=== PATIENT | male | born 1945 | race Caucasian/White ===

== ENCOUNTER 2019-12-12 10:52 | Inpatient (IN) | payer MEDICARE, SELFPAY ==
[2019-12-12] VITALS (39 sets, daily range): BP systolic 76–130; BP diastolic 43–76; PULSE 50–76; RESP 7–26; TEMP 36.4–36.7; O2SAT 93–99; BMI 19.1
--- NOTE | 2019-12-12 10:52 | ECG_ITS ---
[facility] Test Date: 2019-12-12 Pat Name: Finn Hannon Department: Room: Gender: Male Eng[employer]ver Machine: : 1945 Requested By: Francisca Fried Order Number: [id number] Celso MD: Vidal Mercedes M.D. Measurements Intervals [place] Rate: 62 P: 27 IL: 149 QRS: 28 QRSD: 99 T: 30 QT: 423 QTc: 430 Interpretive Statements SINUS RHYTHM INTERPRETATION BASED ON A DEFAULT AGE OF 40 YEARS Compared to ECG 02/09/2017 11:22:44 No significant changes Electronically Signed On 12-12-2019 18:08:57 CDT by Vidal Mercedes M.D. [id number] f
--- NOTE | 2019-12-12 10:52 | CTR_ITS ---
PROCEDURE INFORMATION: Exam: CT Head Without Contrast Exam date and time: 12/12/2019 10:53 AM Age: 74 years old Clinical indication: Speech disturbance and weakness, extremity; Left; Patient HX: L sided weakness mild slurred speech lkw 1015; Additional info: Symptoms of acute stroke TECHNIQUE: Imaging protocol: Computed tomography of the head without contrast. Radiation optimization: All CT scans at this facility use at least one of these dose optimization techniques: automated exposure control; mA and/or kV adjustment per patient size (includes targeted exams where dose is matched to clinical indication); or iterative reconstruction. Other technique: STROKE PROTOCOL was implemented. COMPARISON: No relevant prior studies available. RADIATION DOSE METRICS: Total DLP (mGy-cm): 788.66 FINDINGS: Brain: No acute intracranial hemorrhage, cerebral edema, or midline shift. Ventricles: No hydrocephalus. Bones/joints: No acute fracture. Sinuses: No acute sinusitis. Mastoid air cells: Visualized mastoid air cells are well aerated. Orbits: The included orbital structures are unremarkable. Soft tissues: Unremarkable. CT/CT head wo con* [id number] IMPRESSION: 1. No acute intracranial abnormality. 2. [place] Stroke Program Early CT Score (ASPECTS) = 10 Radiation Dose CTDIVOL = (mGy): DLP = 788.66 (mGy-cm)
--- NOTE | 2019-12-12 10:55 | ED_ITS ---
HPI - Neuro Symptoms/Deficit General: Chief Complaint: Neuro Symptoms/Deficit Stated Complaint: Stroke like symtpoms Time Seen by Provider: 12/12/19 10:52 Source: patient and EMS Mode of arrival: EMS Limitations: no limitations History of Present Illness: HPI Narrative: 74-year-old male states that at 1015 he is outside and had generalized weakness. He states that he had a left facial droop and had extreme slurred speech. Patient states he was unable to lift his arms. Patient brought by EMS and they state when I first arrived he did have slurred speech and facial droop which is all since resolved. He states he feels much better. He denies any fever or headache. Denies any vomiting. Denies any worsening improving factors. Associated symptoms: Deny chest pain, nausea or vomiting Review of Systems Const: Denies: fever(s), chills, body aches or change in appetite Eyes: Denies: blurry vision or eye discomfort ENMT: Denies: throat pain or dental pain Card: Denies: chest pain Resp: Denies: dyspnea GI: Denies: abdominal pain, nausea, vomiting or diarrhea : Denies: dysuria Musc: Denies: neck pain or back pain Skin/Breast: Denies: rash Neuro: Reports: weakness in extremities and Slurred speech present Psych: Denies: depression Esdras/Lymph: Denies: easy bruising All/Imm: Denies: urticaria NIH stroke score NIHSS: Level Of Consciousness - 1a: 0 Level Of Consciousness Questions - 1b: Both Correct Level Of Consciousness Commands - 1c: Both Correct Best Gaze - 2: Normal Visual Winkler - 3: No Visual Loss Facial Palsy - 4: Normal Motor Arm Right - 5: No Drift Motor Arm Left - 5: No Drift Motor Leg Right - 6: No Drift Motor Leg Left - 6: No Drift Limb Ataxia - 7: Absent Sensory - 8: Normal Best Language - 9: No Aphasia Dysarthia - 10: Normal Extinction And Inattention - 11: 0 Score: Total Score: 0 Physical Exam Const: COMMON NORMALS: no acute distress, patient oriented x3 and healthy appearing HENMT: COMMON NORMALS: normocephalic and atraumatic HEAD & SCALP: normocephalic and atraumatic Eye: COMMON NORMALS: Equal, round and reactive pupils present and EOMs intact bilaterally PUPIL: Yes Equal, round and reactive pupils present Neck/C-Spine: COMMON NORMALS: full ROM and supple Chest: COMMONS NORMALS: normal inspection of the chest and normal palpation of entire chest wall Resp: COMMON NORMALS: normal respiratory effort, No retractions, No use of accessory muscles and clear to auscultation bilaterally AUSCULTATION: clear to auscultation bilaterally Cardio: COMMON NORMALS: regular rate, regular rhythm and No murmurs present (Cardio) RATE: regular rate RHYTHM: regular rhythm GI: COMMON NORMALS: Normal to inspection, nondistended, normoactive bowel sounds present, Soft to palpation, non-tender and no masses PALPATION: Yes Soft to palpation Extremity: COMMON NORMALS: normal to inspection and full ROM Neuro: COMMON NORMALS: patient oriented x3, moves all extremities and no focal motor deficits Psych: COMMON NORMALS: mental status grossly normal, Normal thought process present and cooperative THOUGHT PROCESS: Normal thought process present Skin: COMMON NORMALS: no rashes or lesions noted and no wounds GENERAL SKIN EXAM: no rashes or lesions noted Course Vital Signs: Vital signs: Vital Signs Pulse Rate 65 12/12/19 11:07 Respiratory Rate 18 12/12/19 11:07 Blood Pressure 77/47 12/12/19 12:00 Pulse Oximetry 97 12/12/19 12:00 MDM - Neuro Symptoms/Deficit MDM Narrative: Medical decision making narrative: 1105 patient with symptoms of completely resolved his NIH here is now is 0. Talk to patient he was out working and felt weak and some like he may have had a near syncopal event. His blood pressure is low here. CT head is normal. I spoke to Dr. Chen on the phone patient does not require TPA as his symptoms have resolved at this time. We will continue lab work and continue to reassess. 1245. Patient continues to be asymptomatic and neuro exam is benign with no neuro deficits. I spoke to Dr. Chen and patient is not a TPA candidate. 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 I believe that he is on to be blood pressure medicines and his blood pressures getting too low and then making him symptomatic. I spoke to hospitalist and will admit. I also spoke to Dr. Schwarz of CT surgery who is consulted. Patient has been stable here and his blood pressure has improved here as well. Lab Data: Labs: Lab Results 12/12/19 12/12/19 12/12/19 Range/Units 10:56 11:00 11:00 WBC 7.8 (4.0-10.0) 10^3/ uL RBC 4.32 (4.1-5.3) 10^6/u L Hgb 11.3 L (11.7-16.6) g/dL Hct 37.2 L (42.0-52.0) % MCV 86.1 (80-94) fL MCH 26.2 L (28.0-34.0) pg MCHC 30.4 (30.0-36.0) g/dL RDW 16.0 H (12.1-15.1) % Plt Count 373 (130-400) 10^3/c mm MPV 10.0 (7.4-10.4) fL Neut % (Auto) 68.1 % Lymph % (Auto) 21.1 % Mcminn % (Auto) 9.2 % Eos % (Auto) 0.9 % Baso % (Auto) 0.3 % Neut # (Auto) 5.34 (1.8-7.7) 10^3/u L Lymph # (Auto) 1.7 (0.8-4.8) 10^3/u L Mcminn # (Auto) 0.7 (0.2-0.9) 10^3/u L Eos # (Auto) 0.1 (0.0-0.8) 10^3/u L Baso # (Auto) 0.0 (0.0-0.1) 10^3/u L Nucleated RBC % (a uto) 0 % Nucleated RBCs # 0.0 /100WBC PT 13.50 (12.1-14.9) SECO NDS INR 1.00 (0.8-1.2) APTT 29.9 (23.9-36.7) SECO NDS Sodium (136-145) mmol/L Potassium (3.5-5.1) mmol/L Chloride (98-107) mmol/L Carbon Dioxide (22-29) mmol/L Anion Gap (5-19) BUN (8-23) mg/dL Creatinine (0.7-1.2) mg/dL GFR Calculation Glucose (65-115) mg/dL POC Glucose (70-110) mg/dL Calculated Osmolal ity (285-295) mOsm/k g Lactic Acid 2.1 (0.5-2.2) mmol/L Calcium (8.5-10.5) mg/dL Total Bilirubin (0.15-1.2) mg/dL AST (0-40) U/L ALT (0-41) U/L Alkaline Phosphata se (40-130) IU/L Total Protein (6.6-8.7) g/dL Albumin (3.5-5.2) g/dL Globulin (1.3-4.6) g/dL Urine Color (Yellow) Urine Appearance (CLEAR) Urine pH (5-7) Ur Specific Gravit y (1.005-1.030) Urine Protein (Negative) Urine Glucose (UA) (Normal) Urine Ketones (Negative) Urine Blood (Negative) Urine Nitrate (Negative) Urine Bilirubin (NEGATIVE) Urine Urobilinogen (Negative) mg/dL Ur Leukocyte Dora ase (Negative) Urine RBC (0-2) /hpf Urine WBC (0-5) /hpf Ur Squamous Epith Cells (0-5) Amorphous Sediment Urine Bacteria (NONE) Hyaline Casts Urine Mucus Urine Yeast Urine Opiates Scre en (Negative) ng/mL Ur Barbiturates Sc reen (Negative) ng/mL Ur Phencyclidine S crn (Negative) ng/mL Ur Amphetamines Sc reen (Negative) ng/mL U Benzodiazepines Scrn (Negative) ng/mL Urine Cocaine Scre en (Negative) ng/mL U Marijuana (THC) Screen (Negative) ng/mL 12/12/19 12/12/19 12/12/19 Range/Units 11:00 11:00 12:15 WBC (4.0-10.0) 10^3/ uL RBC (4.1-5.3) 10^6/u L Hgb (11.7-16.6) g/dL Hct (42.0-52.0) % MCV (80-94) fL MCH (28.0-34.0) pg MCHC (30.0-36.0) g/dL RDW (12.1-15.1) % Plt Count (130-400) 10^3/c mm MPV (7.4-10.4) fL Neut % (Auto) % Lymph % (Auto) % Mcminn % (Auto) % Eos % (Auto) % Baso % (Auto) % Neut # (Auto) (1.8-7.7) 10^3/u L Lymph # (Auto) (0.8-4.8) 10^3/u L Mcminn # (Auto) (0.2-0.9) 10^3/u L Eos # (Auto) (0.0-0.8) 10^3/u L Baso # (Auto) (0.0-0.1) 10^3/u L Nucleated RBC % (a uto) % Nucleated RBCs # /100WBC PT (12.1-14.9) SECO NDS INR (0.8-1.2) APTT (23.9-36.7) SECO NDS Sodium 136 (136-145) mmol/L Potassium 3.8 (3.5-5.1) mmol/L Chloride 103 (98-107) mmol/L Carbon Dioxide 22 (22-29) mmol/L Anion Gap 14.8 (5-19) BUN 18 (8-23) mg/dL Creatinine 1.2 (0.7-1.2) mg/dL GFR Calculation Not Reportable Glucose 158 H (65-115) mg/dL POC Glucose 197 (70-110) mg/dL Calculated Osmolal ity 282 L (285-295) mOsm/k g Lactic Acid (0.5-2.2) mmol/L Calcium 9.5 (8.5-10.5) mg/dL Total Bilirubin 0.5 (0.15-1.2) mg/dL AST 13 (0-40) U/L ALT 8 (0-41) U/L Alkaline Phosphata se 46 (40-130) IU/L Total Protein 7.7 (6.6-8.7) g/dL Albumin 3.9 (3.5-5.2) g/dL Globulin 3.8 (1.3-4.6) g/dL Urine Color Yellow (Yellow) Urine Appearance Cloudy (CLEAR) Urine pH 5 (5-7) Ur Specific Gravit y 1.025 (1.005-1.030) Urine Protein 1+ H (Negative) Urine Glucose (UA) Norm (Normal) Urine Ketones 1+ H (Negative) Urine Blood 3+ H (Negative) Urine Nitrate Negative (Negative) Urine Bilirubin 1+ H (NEGATIVE) Urine Urobilinogen Norm (Negative) mg/dL Ur Leukocyte Dora ase 2+ H (Negative) Urine RBC 5-10 H (0-2) /hpf Urine WBC 25-40 H (0-5) /hpf Ur Squamous Epith Cells 0-4 H (0-5) Amorphous Sediment Not Reportable Urine Bacteria 2+ H (NONE) Hyaline Casts 0-4 H Urine Mucus Trace Urine Yeast 1+ H Urine Opiates Scre en (Negative) ng/mL Ur Barbiturates Sc reen (Negative) ng/mL Ur Phencyclidine S crn (Negative) ng/mL Ur Amphetamines Sc reen (Negative) ng/mL U Benzodiazepines Scrn (Negative) ng/mL Urine Cocaine Scre en (Negative) ng/mL U Marijuana (THC) Screen (Negative) ng/mL 12/12/19 Range/Units 12:15 WBC (4.0-10.0) 10^3/ uL RBC (4.1-5.3) 10^6/u L Hgb (11.7-16.6) g/dL Hct (42.0-52.0) % MCV (80-94) fL MCH (28.0-34.0) pg MCHC (30.0-36.0) g/dL RDW (12.1-15.1) % Plt Count (130-400) 10^3/c mm MPV (7.4-10.4) fL Neut % (Auto) % Lymph % (Auto) % Mcminn % (Auto) % Eos % (Auto) % Baso % (Auto) % Neut # (Auto) (1.8-7.7) 10^3/u L Lymph # (Auto) (0.8-4.8) 10^3/u L Mcminn # (Auto) (0.2-0.9) 10^3/u L Eos # (Auto) (0.0-0.8) 10^3/u L Baso # (Auto) (0.0-0.1) 10^3/u L Nucleated RBC % (a uto) % Nucleated RBCs # /100WBC PT (12.1-14.9) SECO NDS INR (0.8-1.2) APTT (23.9-36.7) SECO NDS Sodium (136-145) mmol/L Potassium (3.5-5.1) mmol/L Chloride (98-107) mmol/L Carbon Dioxide (22-29) mmol/L Anion Gap (5-19) BUN (8-23) mg/dL Creatinine (0.7-1.2) mg/dL GFR Calculation Glucose (65-115) mg/dL POC Glucose (70-110) mg/dL Calculated Osmolal ity (285-295) mOsm/k g Lactic Acid (0.5-2.2) mmol/L Calcium (8.5-10.5) mg/dL Total Bilirubin (0.15-1.2) mg/dL AST (0-40) U/L ALT (0-41) U/L Alkaline Phosphata se (40-130) IU/L Total Protein (6.6-8.7) g/dL Albumin (3.5-5.2) g/dL Globulin (1.3-4.6) g/dL Urine Color (Yellow) Urine Appearance (CLEAR) Urine pH (5-7) Ur Specific Gravit y (1.005-1.030) Urine Protein (Negative) Urine Glucose (UA) (Normal) Urine Ketones (Negative) Urine Blood (Negative) Urine Nitrate (Negative) Urine Bilirubin (NEGATIVE) Urine Urobilinogen (Negative) mg/dL Ur Leukocyte Dora ase (Negative) Urine RBC (0-2) /hpf Urine WBC (0-5) /hpf Ur Squamous Epith Cells (0-5) Amorphous Sediment Urine Bacteria (NONE) Hyaline Casts Urine Mucus Urine Yeast Urine Opiates Scre en Negative (Negative) ng/mL Ur Barbiturates Sc reen Negative (Negative) ng/mL Ur Phencyclidine S crn Negative (Negative) ng/mL Ur Amphetamines Sc reen Negative (Negative) ng/mL U Benzodiazepines Scrn Negative (Negative) ng/mL Urine Cocaine Scre en Negative (Negative) ng/mL U Marijuana (THC) Screen Negative (Negative) ng/mL Imaging Data^: CT Head: Radiologist's impression: [address] [address] [address] Scan Report Signed Patient: Finn Hannon Unit #: [id number] : 1945 Age/Sex: 74 / M ADM Date: 12/12/19 Loc: ER Room/Bed: Attending Dr: Ordering Provider/Ordering MD: Francisca Fried MD Date of Service: 12/12/19 Procedure(s): CT head wo con* [id number] Accession Number(s): [id number] Report Number: [id number] PROCEDURE INFORMATION: Exam: CT Head Without Contrast Exam date and time: 12/12/2019 10:53 AM Age: 74 years old Clinical indication: Speech disturbance and weakness, extremity; Left; Patient HX: L sided weakness mild slurred speech lkw 1015; Additional info: Symptoms of acute stroke TECHNIQUE: Imaging protocol: Computed tomography of the head without contrast. Radiation optimization: All CT scans at this facility use at least one of these dose optimization techniques: automated exposure control; mA and/or kV adjustment per patient size (includes targeted exams where dose is matched to clinical indication); or iterative reconstruction. Other technique: STROKE PROTOCOL was implemented. COMPARISON: No relevant prior studies available. RADIATION DOSE METRICS: Total DLP (mGy-cm): 788.66 FINDINGS: Brain: No acute intracranial hemorrhage, cerebral edema, or midline shift. Ventricles: No hydrocephalus. Bones/joints: No acute fracture. Sinuses: No acute sinusitis. Mastoid air cells: Visualized mastoid air cells are well aerated. Orbits: The included orbital structures are unremarkable. Soft tissues: Unremarkable. CT/CT head wo con* [id number] IMPRESSION: 1. No acute intracranial abnormality. 2. [place] Stroke Program Early CT Score (ASPECTS) = 10 CXR: Radiologist's impression: [address] [address] XRay Report Signed Patient: Finn Hannon Unit #: [id number] : 1945 Age/Sex: 74 / M ADM Date: 12/12/19 Loc: ER Room/Bed: Attending Dr: Ordering Provider/Ordering MD: Francisca Fried MD Date of Service: 12/12/19 Procedure(s): XR chest 1V portable [id number] Accession Number(s): [id number] Report Number: [id number] PROCEDURE INFORMATION: Exam: XR Chest, 1 View Exam date and time: 12/12/2019 11:42 AM Age: 74 years old Clinical indication: Other: Near syncope TECHNIQUE: Imaging protocol: XR of the chest Views: 1 view. COMPARISON: CR Chest 2 views* [id number] 02/09/2017 11:35 AM FINDINGS: Lungs: Senescent changes are present. No focal consolidation is identified. The lungs are underinflated. Pleural space: Unremarkable. No pleural effusion. No pneumothorax. Heart/Mediastinum: The cardiac silhouette is at the upper limits of normal. Vasculature: Atherosclerotic calcifications are noted within the aortic arch. Bones/joints: Degenerative changes of the shoulders are present. XR/XR chest 1V portable [id number] IMPRESSION: 1. No acute abnormality. 2. Chronic findings as discussed above. cta head: Radiologist's impression: [place] [address] CT Scan Report Signed Patient: Finn Hannon Unit #: [id number] : 1945 Acc t#:[id number] Age/Sex: 74 / M ADM Date: 12/12/19 Loc: ER Room/Bed: Attending Dr: Ordering Provider/Ordering MD: Francisca Fried MD Date of Service: 12/12/19 Procedure(s): CT angio headneck* [id number] Accession Number(s): [id number] Report Number: [id number] WS: [id number] CT ANGIOGRAM CEREBRAL AND CAROTID ARTERIES HISTORY: tia TECHNIQUE: CT angiogram is performed of the carotid and cerebral arteries. During arterial injection imaging is obtained from the skull vertex to the aortic arch in 1.25 mm imaging. Coronal and sagittal reformats are submitted. Additional multi planar reformats of the carotid and cerebral arteries are submitted, MIP imaging also reviewed. NASCET criteria utilized. All CT scans at [facility] use at least one of these dose optimization techniques: automated exposure control; mA and/or kV adjustment per patient size (includes targeted exams where dose is matched to clinical indication); or iterative reconstruction. CONTRAST: Visipaque 320; 95 mL IV. DLP: 2232.33 mGy.cm COMPARISON: None available. Carotid Angiogram: Right carotid: Common carotid artery: Atherosclerosis with no aneurysm or stricture. Internal carotid artery: Moderate calcified plaque and intimal thickening at the bifurcation. Stenosis calculated at 63%. External carotid artery: Patent. Left carotid: Common carotid artery: Tortuous carotid artery with atherosclerosis. There is very mild stenosis at the origin of the common carotid artery from the arch. Internal carotid artery: Calcified plaque at the bifurcation intimal thickening and moderate narrowing. Significant stenosis proximal ICA. Stenosis calculated at 84%. External carotid artery: Patent. Right vertebral artery: Small caliber but patent. Left vertebral artery: Unremarkable. Arises normally from the subclavian artery. Subclavian arteries: Bilateral atherosclerotic plaque. No significant stenoses. Upper thorax: Normal. Thyroid gland: Normal. Osseous structures: Advanced degenerative cervical spondylosis. No fractures or destructive bone lesion. CEREBRAL ANGIOGRAM: Intracranial vertebral arteries: Very small caliber RIGHT vertebral artery but patent. Dominant LEFT vertebral artery. Basilar artery: No significant stenosis or occlusion. No aneurysm. Intracranial Internal carotid arteries: Mild intimal thickening and atheros clerotic plaque. No significant stenosis. No aneurysm. Middle cerebral arteries: Normal. Anterior cerebral arteries and ACOM: Normal. Posterior cerebral arteries and PCOM's: Normal. 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 No thrombus. Mastoid air cells: Normal. Paranasal sinuses: Normal. Calvarium: Normal. CT/CT angio headneck* [id number] IMPRESSION: 1. Proximal LEFT ICA stenosis 84%. 2. Proximal RIGHT ICA stenosis 63%. 3. 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 EKG Data^: EKG 1: Attestation: I personally reviewed and interpreted this EKG as follows: EKG interpretation date: 12/12/19 EKG interpretation time: 11:03 Interpretation: nsr hr [address] or t wave abnormalities qrs 99 qtc 428 Discharge Plan Discharge Patient Disposition: Admitted As Inpatient Clinical Impression: Transient cerebral ischemia, Hypotension Condition: Stable Prescriptions: No Action metoprolol succinate 25 mg tablet extended release 24 hr 25 mg PO DAILY Qty: 90 RF: 3 lisinopril 10 mg tablet 10 mg PO DAILY Qty: 90 RF: 3 isosorbide mononitrate 30 mg Tablet Extended Release 24 Hr 30 mg PO DAILY RF: 0 omeprazole 40 mg Capsule,Delayed Release(Dr/Ec) 40 mg PO DAILY RF: 0 Flomax 0.4 mg Capsule 0.4 mg PO DAILY RF: 0 Crestor 10 mg Tablet 10 mg PO DAILY RF: 0 Referrals: Marques Sterling MD [Primary Care Provider] - Coding Level of Care Code ED Towel Folder for Chg Fwd Exam Comprehensive
[2019-12-12 11:03] LABS: Glucose Point of Care 197 mg/dL (70-110)
--- NOTE | 2019-12-12 11:14 | XRR_ITS ---
PROCEDURE INFORMATION: Exam: XR Chest, 1 View Exam date and time: 12/12/2019 11:42 AM Age: 74 years old Clinical indication: Other: Near syncope TECHNIQUE: Imaging protocol: XR of the chest Views: 1 view. COMPARISON: CR Chest 2 views* [id number] 02/09/2017 11:35 AM FINDINGS: Lungs: Senescent changes are present. No focal consolidation is identified. The lungs are underinflated. Pleural space: Unremarkable. No pleural effusion. No pneumothorax. Heart/Mediastinum: The cardiac silhouette is at the upper limits of normal. Vasculature: Atherosclerotic calcifications are noted within the aortic arch. Bones/joints: Degenerative changes of the shoulders are present. XR/XR chest 1V portable [id number] IMPRESSION: 1. No acute abnormality. 2. Chronic findings as discussed above.
[2019-12-12 11:21] LABS: Basophils % 0.3 %; Eosinophils # 0.1 10^3/uL (0.0-0.8); Eosinophils % 0.9 %; Hematocrit 37.2 % (42.0-52.0); Hemoglobin 11.3 g/dL (11.7-16.6); Lymphocytes # 1.7 10^3/uL (0.8-4.8); Lymphocytes % 21.1 %; Mean Corpuscular HGB Conc 30.4 g/dL (30.0-36.0); Mean Corpuscular Hemoglobin 26.2 pg (28.0-34.0); Mean Corpuscular Volume 86.1 fL (80-94); Monocytes # 0.7 10^3/uL (0.2-0.9); Monocytes % 9.2 %; Neutrophils # 5.34 10^3/uL (1.8-7.7); Neutrophils % 68.1 %; Nucleated Red Blood Cells % 0 %; Platelet Count 373 10^3/cmm (130-400); Red Blood Count 4.32 10^6/uL (4.1-5.3); White Blood Count 7.8 10^3/uL (4.0-10.0)
[2019-12-12] MEDS: aspirin 81 mg Chew Tablet 324 MG PO (11:24)
[2019-12-12] MEDS: sodium chloride 0.9% 1,000 ML 999 ML IV ×2 (11:25→12:24)
--- NOTE | 2019-12-12 11:28 | CT_ITS ---
WS: [id number] CT ANGIOGRAM CEREBRAL AND CAROTID ARTERIES HISTORY: tia TECHNIQUE: CT angiogram is performed of the carotid and cerebral arteries. During arterial injection imaging is obtained from the skull vertex to the aortic arch in 1.25 mm imaging. Coronal and sagittal reformats are submitted. Additional multi planar reformats of the carotid and cerebral arteries are submitted, MIP imaging also reviewed. NASCET criteria utilized. All CT scans at [facility] use at least one of these dose optimization techniques: automated exposure control; mA and/or kV ad justment per patient size (includes targeted exams where dose is matched to clinical indication); or iterative reconstruction. CONTRAST: Visipaque 320; 95 mL IV. DLP: 2232.33 mGy.cm COMPARISON: None available. Carotid Angiogram: Right carotid: Common carotid artery: Atherosclerosis with no aneurysm or stricture. Internal carotid artery: Moderate calcified plaque and intimal thickening at the bifurcation. Stenosi s calculated at 63%. External carotid artery: Patent. Left carotid: Common carotid artery: Tortuous carotid artery with atherosclerosis. There is very mild stenosis at t he origin of the common carotid artery from the arch. Internal carotid artery: Calcified plaque at the bifurcation intimal thickening and moderate narrowin g. Significant stenosis proximal ICA. Stenosis calculated at 84%. External carotid artery: Patent. Right vertebral artery: Small caliber but patent. Left vertebral artery: Unremarkable. Arises normally from the subclavian artery. Subclavian arteries: Bilateral atherosclerotic plaque. No significant stenoses. Upper thorax: Normal. Thyroid gland: Normal. Osseous structures: Advanced degenerative cervical spondylosis. No fractures or destructive bone lesi on. CEREBRAL ANGIOGRAM: Intracranial vertebral arteries: Very small caliber RIGHT vertebral artery but patent. Dominant LEFT vertebral artery. Basilar artery: No significant stenosis or occlusion. No aneurysm. Intracranial Internal carotid arteries: Mild intimal thickening and atherosclerotic plaque. No signif icant stenosis. No aneurysm. Middle cerebral arteries: Normal. Anterior cerebral arteries and ACOM: Normal. Posterior cerebral arteries and PCOM's: Normal. 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 No thrombus. Mastoid air cells: Normal. Paranasal sinuses: Normal. Calvarium: Normal. CT/CT angio headneck* [id number] IMPRESSION: 1. Proximal LEFT ICA stenosis 84%. 2. Proximal RIGHT ICA stenosis 63%. 3. 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
[2019-12-12 11:31] LABS: Partial Thromboplastin Time 29.9 SECONDS (23.9-36.7)
[2019-12-12 11:35] LABS: Alanine Aminotransferase 8 U/L (0-41); Albumin Level 3.9 g/dL (3.5-5.2); Alkaline Phosphatase 46 IU/L (40-130); Anion Gap 14.8 (5-19); Aspartate Amino Transferase 13 U/L (0-40); Blood Urea Nitrogen 18 mg/dL (8-23); Calcium 9.5 mg/dL (8.5-10.5); Carbon Dioxide 22 mmol/L (22-29); Chloride 103 mmol/L (98-107); Globulin 3.8 g/dL (1.3-4.6); Glucose 158 mg/dL (65-115); Osmolality Calculated 282 mOsm/kg (285-295); Potassium 3.8 mmol/L (3.5-5.1); Sodium 136 mmol/L (136-145); Total Bilirubin 0.5 mg/dL (0.15-1.2); Total Protein 7.7 g/dL (6.6-8.7)
[2019-12-12 11:36] LABS: Lactic Sepsis W/Reflex 2.1 mmol/L (0.5-2.2)
[2019-12-12] MEDS: iodixanol 320 mg/mL 100mL Btl IV (11:52)
--- NOTE | 2019-12-12 12:31 | ECG_ITS ---
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 Measurements Intervals [place] Rate: 59 P: 8 KS: 152 QRS: -12 QRSD: 86 T: -10 QT: 438 QTc: 436 Interpretive Statements SINUS BRADYCARDIA Compared to ECG 12/12/2019 11:03:08 Sinus rhythm no longer present Electronically Signed On 12-12-2019 18:07:13 CDT by Vidal Mercedes M.D. [id number] f
[2019-12-12 12:38] LABS: Add Urine Microscopic? YES; Bilirubin Urine 1+ (NEGATIVE); Blood Urine 3+ (Negative); Glucose Urine UA Norm (Normal); Ketones Urine 1+ (Negative); Leukocyte Esterase Urine 2+ (Negative); Nitrate Urine Negative (Negative); Protein Urine 1+ (Negative); Specific Gravity, Urine 1.025 (1.005-1.030); Urine Appearance Cloudy (CLEAR); Urine Color Yellow (Yellow); Urobilinogen Urine Norm (Negative); pH Urine 5 (5-7)
[2019-12-12 12:40] LABS: Squamous Epithelial Cell Urine 0-4 (0-5); WBC Urine 25-40 /hpf (0-5)
[2019-12-12 12:41] LABS: Amphetamines Screen Urine Negative (Negative); Bacteria Urine 2+; Barbiturates Screen Urine Negative (Negative); Benzodiazepines Screen Urine Negative (Negative); Cocaine Screen Urine Negative (Negative); Hyaline Casts Urine 0-4; Mucus Urine TRACE; Opiate Screen Urine Negative (Negative); PCP Screen Urine Negative (Negative); THC Screen Urine Negative (Negative)
[2019-12-12 12:42] LABS: Add Urine Culture? Yes
--- NOTE | 2019-12-12 12:59 | PC.NURSE ---
Patient stated that before his syncopal episodes he has sudden neck pain that almost feels like his throat is closing then blacks out.
[2019-12-12 13:02] LABS: Reflex Lactate Order REFLEX LACTIC ORDERD
[2019-12-12 13:28] LABS: Troponin(5th) Baseline 12 ng/L (0-15)
[2019-12-12 13:36] LABS: Troponin 5 2HR 10.12 ng/L (0-15)
[2019-12-12 13:39] LABS: Troponin 5 2HR Delta -1.88 ABS# (0-10)
--- NOTE | 2019-12-12 13:50 | USCV_ITS ---
Finn Hannon Age: 74 Gender: M : 1945 Exam Date: 12/12/2019 15:29 Ordering Phys: Yan Aldrich MD Technologist: Leigha Talavera [place] [facility] [place]: TIA BP: 102 / 63 HR: 57 Rhythm: Sinus Technical Quality: Technically difficult study MEASUREMENTS (Male / Female) Normal Values 2D ECHO LV Diastolic Diameter PLAX 3.1 cm 4.2 - 5.9 / 3.9 - 5.3 cm LV Systolic Diameter PLAX 2.0 cm LV Chamber Size 3.8 cm IVS Diastolic Thickness 1.3 cm 0.6 - 1.0 / 0.6 - 0.9 cm IVS Systolic Thickness 1.2 cm LVPW Diastolic Thickness 1.6 cm 0.6 - 1.0 / 0.6 - 0.9 cm LVPW Systolic Thickness 1.9 cm RV Chamber Size 4.2 cm LVOT Diameter 2.1 cm LV Ejection Fraction 2D Teich 67.3 % LV Ejection Fraction MOD 2C 55.9 % LV Ejection Fraction 2C AL 57.4 % LA Diameter 4.7 cm LA Width 2.7 cm LA Height 4.0 cm RA Width 2.6 cm RA Height 3.2 cm Aorta at Sinotubular Diameter 2.6 cm M-MODE LV Diastolic Diameter MM 4.9 cm 4.2 - 5.9 / 3.9 - 5.3 cm LV Systolic Diameter MM 3.0 cm LV Ejection Fraction MM Teich 68.9 % IVS Diastolic Thickness MM 1.4 cm 0.6 - 1.0 / 0.6 - 0.9 cm IVS Systolic Thickness MM 1.4 cm LVPW Diastolic Thickness MM 0.9 cm 0.6 - 1.0 / 0.6 - 0.9 cm LVPW Systolic Thickness MM 1.7 cm Aortic Annulus Diameter 2.5 cm LA Ao Ratio MM 1.9 MV E Point Septal Separation 0.7 cm DOPPLER AV Peak Velocity 209.0 cm/s LVOT Peak Velocity 111.0 cm/s AV Area Cont Eq vti 2.3 cm squared AV Area Cont Eq pk 1.8 cm squared MV Area PHT 2.6 cm squared Mitral E to A Ratio 0.6 MV E' Velocity 12.0 cm/s Mitral E to MV E' Ratio 5.5 Mitral E to LV E' Lateral Ratio 5.1 Mitral E to LV E' Septal Ratio 6.0 TR Peak Velocity 181.0 cm/s TR Peak Gradient 13.1 mmHg TV Peak E Velocity 49.0 cm/s Right Atrial Pressure 3.0 mmHg Pulmonary Artery Systolic Pressu 16.1 mmHg PV Peak Velocity 60.0 cm/s RV Acceleration Time 0.1 s RV Ejection Time 0.4 s RV AcT/ET 0.3 FINDINGS Left Ventricle Normal left ventricular cavity size. Normal left ventricular systolic function. Left ventricular ejection fraction is estimated at 60-65 %. No diagnostic regional wall motion abnormalities. Normal diastolic function. Right Ventricle Normal right ventricular size and systolic function. Right Atrium Right atrium not well visualized. Left Atrium Upper normal left atrial size. Mitral Valve Structurally normal mitral valve. No mitral valve stenosis. Aortic Valve Aortic valve not well visualized. No aortic valve stenosis. Tricuspid Valve Tricuspid valve not well visualized. Pulmonic Valve Pulmonic valve not well visualized. Pericardium No pericardial effusion. Aorta Normal sized aortic root. CONCLUSIONS 1. This is a technically difficult study. 2. Normal left ventricular cavity size and systolic function. Left ventricular ejection fraction is estimated at 60-65 %. No diagnostic regional wall motion abnormalities. Normal diastolic function. 3. Normal right ventricular size and systolic function. 4. No significant valvular abnormality. 5. When compared to previous echocardiogram dated 02/07/2017, there may not have been any significant change. Jocelynn Dominguez MD (Electronically Signed) Final Date: 12 December 2019 20:11 S
[2019-12-12 14:31] LABS: NT Pro B Type Natriuretic Pept 232 pg/mL (0-450); Procalcitonin 0.08 ng/mL (0-0.5)
[2019-12-12] MEDS: sodium chloride 0.9% 1,000 ML 75 ML IV (14:31)
--- NOTE | 2019-12-12 14:31 | ECG_ITS ---
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 Measurements Intervals [place] Rate: 60 P: IA: -1 QRS: 0 QRSD: 91 T: -9 QT: 435 QTc: 437 Interpretive Statements SINUS RHYTHM NONSPECIFIC T-WAVE ABNORMALITY EKG interpretation limited by baseline artifact Compared to ECG 12/12/2019 12:57:23 No significant changes Electronically Signed On 12-12-2019 18:26:51 CDT by Vidal Mercedes M.D. [id number]
[2019-12-12 14:32] LABS: Thyroid Stimulating Hormone 3.61 uIU/mL (0.27-4.20)
[2019-12-12 14:43] LABS: Iron 83 ug/dL (59-158); Total Iron Binding Capacity 267 mcg/dl; Unsaturated Iron Binding 184 ug/dL (112-347)
--- NOTE | 2019-12-12 16:44 | P.CONIM_ITS ---
Providers/Reason For Consult Consulting Physican/Specialty*: Dr. Dominguez, cardiology Reason for Consult*: Multiple episodes of presyncope/syncope with dyspnea on exertion, atypical chest pain, known history of nonobstructive CAD Attending Physician: Yan Aldrich MD Primary Care Provider: Marques Sterling MD History of Present Illness History of Present Illness Finn Hannon is a 74 year old male with past medical history of hypertension, hyperlipidemia, benign prostatic hypertrophy, history of nonobstructive coronary artery disease who presented for evaluation of recurrent episodes of presyncope and one syncopal episode this morning. It seems like for the past few weeks patient has been having episodes of dizziness with exertion (mostly while helping his Shanthi who has Parkinson's disease and dementia). He describes one episode where he fell back on the couch after helping her and really felt tired and dizzy. This morning he started complaining of lightheadedness and near fall while helping his but it subsided and he did not think much of it and made breakfast. Later on in the morning while his son-in-law came by to visit, he started having dizziness, weakness, diaphoresis and double vision. The symptoms continued even after sitting down and he ended up having a syncopal episode. He was brought to the ER by EMS. He was noted to have left-sided facial droop and slurred speech on arrival that has since resolved. He denies having any fever, chills diarrhea or vomiting. He does complain of exertional shortness of breath that has been worsening over last several months. Intermittent episodes of sharp chest discomfort unrelated to exertion were also also described by the patient. He complains of tightness around his neck described as feeling of an ill fitting/new tie. He was out of his medications for about a week and started taking them yesterday evening. He denies having any sick contacts or eating anything unusual. He used to follow-up with Dr. Vizcarra and last saw him in November 2018. He did not undergo coronary angiogram and was noted to have minor irregularities in left main LAD and circumflex and proximal RCA with 40 to 50% and distal RCA with 60 to 70% stenosis. FFR was 0.9. His CXR was normal and two sets of troponins were negative. EKG with sinus bradycardia and non specific T wave inversion. Review of Systems Const: Denies: fever(s), chills, body aches or change in appetite Eyes: Denies: blurry vision or eye discomfort ENMT: Denies: throat pain or dental pain Card: Reports: chest pain, lightheadedness, syncope, pre-syncope and dyspnea on exertion; Denies: palpitations, orthopnea or leg pain with exertion Resp: Reports: dyspnea and non-productive cough; Denies: productive cough, wheezing, pain on inspiration or hemoptysis GI: Denies: abdominal pain, nausea, vomiting or diarrhea : Denies: dysuria Musc: Denies: neck pain, back pain or extremity swelling Skin/Breast: Denies: rash Neuro: Reports: weakness in extremities and Slurred speech present Psych: Denies: depression Endo: Denies: excessive sweating Esdras/Lymph: Denies: easy bruising All/Imm: Denies: urticaria Meds/Allergies Home Medications and Allergies Home Medications Medication Instructions Recorded Confirmed Last Taken Type metoprolol succinate 25 mg 25 mg PO DAILY #90 tab 08/15/19 12/12/19 12/12/19 Rx tablet,extended release 24 hr lisinopril 10 mg tablet 10 mg PO DAILY #90 tab 12/05/19 12/12/19 12/12/19 Rx isosorbide mononitrate 30 mg PO DAILY 12/12/19 12/12/19 12/12/19 History omeprazole 40 mg PO DAILY 12/12/19 12/12/19 12/12/19 History rosuvastatin [Crestor] 10 mg PO DAILY 12/12/19 12/12/19 12/11/19 History tamsulosin [Flomax] 0.4 mg PO DAILY 12/12/19 12/12/19 12/12/19 History Allergies Allergy/AdvReac Type Severity Reaction Status Date / Time No Known Allergies Allergy Unverified 08/15/19 10:20 Current Medications Current Medications Generic Name Dose Route Start Last Admin Trade Name Freq PRN Reason Stop Dose Admin Sodium Chloride 1,000 mls @ 75 mls/hr 12/12/19 14:15 12/12/19 14:31 Sodium Chloride 0.9% IV 75 mls/hr .[id number] DASHA Administration PFSH Acute PFSH: Medical History (Updated 12/12/19 @ 18:29 by Jocelynn Dominguez MD) BPH (benign prostatic hyperplasia) CAD (coronary artery disease) Carotid stenosis, bilateral Dyslipidemia GERD (gastroesophageal reflux disease) Hiatal hernia HTN (hypertension) Surgical History (Updated 12/12/19 @ 17:02 by Jocelynn Dominguez MD) H/O arthroscopy of knee H/O arthroscopy of shoulder History of hip replacement, total Hx of inguinal hernia surgery Vitals/I&O/Wt Last Vital Signs Pulse 59 L 12/12/19 13:12 Resp 18 12/12/19 13:12 BP 110/63 12/12/19 13:12 Pulse Ox 97 12/12/19 13:12 12/12/19 12/12/19 12/12/19 06:59 14:59 22:59 Intake Total / Balance Weight last 48 hrs Weight 129 lb 6.4 oz Physical Exam Narrative: EXAM NARRATIVE: GENERAL: Averagely built and averagely nourished in no acute distress HEENT: Extraocular movement intact. Pupils equal round reactive to light. No pallor or icterus. NECK: central trachea, No JVD, + carotid bruit. CARDIOVASCULAR SYSTEM: S1-S2 regular. No murmur rubs or gallops. RESPIRATORY SYSTEM: Chest clear to auscultation. No wheezes rhonchi or rubs heard. No use of accessory muscles. ABDOMEN: Soft, nontender and nondistended. Normal bowel sounds present. EXTREMITIES: No cyanosis or clubbing. No edema. No signs of chronic venous insufficiency. CAMPUS SECURITY OFFICER: Patient is alert oriented ?3. No focal neurological deficits. SKIN: Normal turgor and temperature. PSYCH: Normal insight and judgment. Data Other Data: Other data: Coronary angiogram 09 February 2017 Angiographic Findings Cardiac Arteries and Lesion Findings LMCA: Medium caliber extremely short vessel. No significant stenotic lesions. LAD: Medium caliber vessel. It appears to wrap around the LV apex. Minimal coronary ectasia was noted proximally. Mild diffuse intimal irregularities were noted in the mid and distal vessel The first diagonal branch is a medium caliber vessel with a mild diffuse disease LCx: Medium caliber vessel. It gives of a high obtuse marginal branch which has mild diffuse disease proximally with no significant stenotic lesions RCA: Medium caliber vessel. There is a tapering narrowing of around 40% proximally. The mid segment of the artery is some mild diffuse ectasia. The distal segment was found to have a moderately severe segmental narrowing. The PDA and the PDA branches was found to have mild diffuse intimal irregularities Lesion on Dist RCA: FFR + + + + !FFR !Stage/Medication !Dosage ! + + + + !0.9 !Adenosine (I.V) !562 ! + + + + LMM STRESS? 01/31/2017 Abnormal EKG response to treadmill exercise suggestive ischemia in the distribution of the right coronary artery/left anterior descending artery 2. No exercise-induced chest pain or cardiac arrhythmia 3. Markedly impaired exercise tolerance, attained a maximum of 4.6 METs Myocardial perfusion imaging revealed a small area of persistent decreased tracer uptake in the mid and apical inferior wall region suggestive of myocardial scarring versus attenuation artifact 2. Left ventricular wall motion analysis revealed no significant wall motion abnormalities 3. Left ventricular ejection fraction was estimated to be within normal limits 61 %. 4. Left ventricular volume was within normal limits. No significant coronary ischemia, based on the above findings CT scan of head: IMPRESSION: 1. No acute intracranial abnormality. CTA head and neck IMPRESSION: 1. Proximal LEFT ICA stenosis 84%. 2. Proximal RIGHT ICA stenosis 63%. 3. 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 EKG showed sinus bradycardia with nonspecific T wave abnormality. Event monitor (11/2017) CLINICAL INDICATION: PALPITATIONS INTERPRETATION: There were 9 strips returned. The baseline strip reveals sinus bradycardia rate of 55 bpm. There were episodes of sinus bradycardia as low as 35 bpm. There was sinus tachycardia at 107 bpm. One strip on the of the month, day 14 of the recording, revealed a 5 beat run of wide complex rhythm at a rate of only 72 bpm. This was automatically detected and was not symptomatic, and was likely ventricular in origin. Patient had 2 episodes of syncope. Both were associated with sinus rhythm.. A&P Assessment and plan (1) Syncope: Status: Acute Qualifiers: Syncope type: unspecified Qualified Code(s): R55 - Syncope and collapse (2) Transient cerebral ischemia: Status: Acute Qualifiers: Transient cerebral ischemia type: unspecified Qualified Code(s): G45.9 - Transient cerebral ischemic attack, unspecified (3) Carotid stenosis, bilateral: Symptomatic left carotid stenosis of 84% and right carotid stenosis of 63%. Status: Acute (4) CAD (coronary artery disease): H/o non obstructive CAD with exertional symptom and dizzy spells. -I will plan for lexiscan MPI on Sunday and based on that decide on coronary angiogram. -This was decided after long discussion with the patient and his daughter (). -The case was also discussed with Dr. Jerez and Dr. Schwarz. -continue ASA, statin and metoprolol. Status: Acute Qualifiers: Coronary Disease-Associated Artery/Lesion type: [place] artery [place] vs. transplanted heart: [place] heart Associated angina: without angina Qualified Code(s): I25.10 - Atherosclerotic heart disease of [place] coronary artery without angina pectoris (5) HTN (hypertension): Status: Acute Qualifiers: Hypertension type: essential hypertension Qualified Code(s): I10 - Essential (primary) hypertension (6) Dyslipidemia: Status: Acute (7) Hypotension: Status: Acute Qualifiers: Hypotension type: unspecified hypotension type Qualified Code(s): I95.9 - Hypotension, unspecified Additional A&P Information History of obstructive sleep apnea History of bradycardia Thank you for allowing me to participate in patient's care. Please feel free to call with questions or concerns. Coding Level of Care Code Acute Director Process Engineering for Elicia Agarwal Diagnoses Syncope R55 Syncope type: unspecified Transient cerebral ischemia G45.9 Transient cerebral ischemia type: unspecified Carotid stenosis, bilateral I65.23 CAD (coronary artery disease) I25.10 Coronary Disease-Associated Artery/Lesion type: [place] artery [place] vs. transplanted heart: [place] heart Associated angina: without angina HTN (hypertension) I10 Hypertension type: essential hypertension Dyslipidemia E78.5 Hypotension I95.9 Hypotension type: unspecified hypotension type
[2019-12-12 16:51] LABS: Glucose Point of Care 90 mg/dL (70-110)
--- NOTE | 2019-12-12 17:22 | PC.NURSE ---
Nutrition Services called re. new diet order for patient. Cardiac diet.
[2019-12-12 17:51] LABS: Troponin 5 6HR 10.13 ng/L (0-15)
[2019-12-12 18:01] LABS: Troponin 5 6HR Delta -1.87 ng/L (0-12)
[2019-12-12] MEDS: enoxaparin 40 mg/0.4 mL Syringe SUBCUT (18:09)
[2019-12-12] MEDS: atorvastatin 40 mg Tablet 80 MG PO (18:09)
--- NOTE | 2019-12-12 18:30 | PM.HP ---
Providers/Chief Complaint Admitting Physician: Ginna Do MD Primary Care Provider: Marques Sterling MD Chief Complaint: Stroke like symtpoms History of Present Illness Finn Hannon is a 74 year old male with past medical history of hypertension, hyperlipidemia, benign prostatic hypertrophy, history of nonobstructive coronary artery disease who presented for evaluation of recurrent episodes of presyncope and one syncopal episode this morning. It seems like for the past few weeks patient has been having episodes of dizziness with exertion (mostly while helping his Shanthi who has Parkinson's disease and dementia). He explains most of the episodes are when he is trying to lift his from bed to chair or from chair to bed at that time he would have episodes of blackout which were preceded by bright flashing of lights, nausea and diaphoresis. These events have been happening for last 3 to 4 weeks. He is also been complaining of exertional diaphoresis, shortness of breath with some occlusion of central chest pain. Today morning when he was having his breakfast with his and son-in-law he stated that he is not feeling well and after finishing the breakfast when he stood he had an acute episode when he was getting up off extreme diaphoresis along with presyncopal event when he kind of leaned onto the floor today also his episodes were associated with lightheadedness. He denies of having any diarrhea, dysuria, cough, fever, flulike symptoms, exposure to COVID-19, depression, headache, dizziness, palpitation, swelling in his legs, orthopnea, PND, palpitations. His blood work in the ER showed a white count of 7.2, hemoglobin of 11.3, platelet count of 373, INR of 1, sodium of 136, BUN of 18 with a creatinine of 1.2, lactate of 2.1 with a normal liver function, baseline troponin of 10 with a delta of -1 in 2 hours urinalysis done in the ER showed negative nitrate with 2+ leuk esterase and 25-40 WBCs though patient himself denies of having any dysuria. CT head was done which showed no acute abnormality while CTA head and neck showed dominant left vertebral artery, proximal left ICA stenosis of 84%, proximal right ICA stenosis of 63%. As per the ER physician patient did have facial drooping when he presented but that resolved in the ER and has not happened again. Review of Systems General: Reports: 10 or more systems reviewed and unremarkable except in HPI and below Const: Denies: fever(s), chills, body aches, change in appetite, change in weight, malaise, night sweats, diaphoresis, change in sleep pattern, daytime sleepiness or snoring Eyes: Denies: change in vision, blurry vision, photophobia, eye discomfort or eye discharge ENMT: Denies: throat pain, enlarged tonsils, hoarseness, mouth pain, oral sores, dry mouth, tinnitus, nasal congestion or post nasal drip Card: Reports: chest pain, syncope and pre-syncope; Denies: palpitations, irregular heart rhythm, edema, swelling of feet/ankles, lightheadedness, dyspnea on exertion, orthopnea, leg pain with exertion or acrocyanosis Resp: Reports: dyspnea; Denies: productive cough, non-productive cough, wheezing, stridor, pain on inspiration, change in phlegm color, hemoptysis or chest congestion GI: Denies: abdominal pain, nausea, vomiting, hematemesis, coffee ground emesis, dysphagia, heartburn, diarrhea, constipation, bloating, GI cramping, change in bowel habits, pain on defecation, hematochezia or melena : Denies: flank pain, difficulty urinating, dysuria, urinary frequency, urinary urgency, urinary hesitancy, urinary dribbling, difficulty starting urination, change in urine stream, nocturia or hematuria Musc: Reports: neck pain; Denies: back pain, extremity pain, joint pain, joint swelling, joint redness, joint stiffness or limited range of motion Neuro: Reports: weakness in extremities, frequent falls and dizziness; Denies: headache(s), numbness in extremities, sensory changes, lack of coordination, difficulty walking, vertigo, confusion, Slurred speech present, difficulty communicating thoughts or seizure-like activity Psych: Denies: anxiety, depression, mood swings, panic attacks, hopelessness or irritability Endo: Denies: polyuria, polydipsia, tired all the time, cold intolerance, excessive sweating, flushing or heat intolerance Esdras/Lymph: Denies: easy bruising or easy bleeding All/Imm: Denies: tongue swelling, facial swelling or acute wheezing Medications/Allergies Home Medications Medication Instructions Recorded Confirmed Last Taken Type metoprolol succinate 25 mg 25 mg PO DAILY #90 tab 08/15/19 12/12/19 12/12/19 Rx tablet,extended release 24 hr lisinopril 10 mg tablet 10 mg PO DAILY #90 tab 12/05/19 12/12/19 12/12/19 Rx isosorbide mononitrate 30 mg PO DAILY 12/12/19 12/12/19 12/12/19 History omeprazole 40 mg PO DAILY 12/12/19 12/12/19 12/12/19 History rosuvastatin [Crestor] 10 mg PO DAILY 12/12/19 12/12/19 12/11/19 History tamsulosin [Flomax] 0.4 mg PO DAILY 12/12/19 12/12/19 12/12/19 History Allergies Allergy/AdvReac Type Severity Reaction Status Date / Time No Known Allergies Allergy Unverified 08/15/19 10:20 PFSH Acute PFSH: Medical History BPH (benign prostatic hyperplasia) CAD (coronary artery disease) Carotid stenosis, bilateral Dyslipidemia GERD (gastroesophageal reflux disease) Hiatal hernia HTN (hypertension) Surgical History H/O arthroscopy of knee H/O arthroscopy of shoulder History of hip replacement, total Hx of inguinal hernia surgery Vitals/I&O/Wt Last Vital Signs Pulse 59 L 12/12/19 13:12 Resp 18 12/12/19 13:12 BP 110/63 12/12/19 13:12 Pulse Ox 97 12/12/19 17:35 12/12/19 12/12/19 12/12/19 06:59 14:59 22:59 Intake Total 35 / 1981.35 Balance 35 1981. Weight last 48 hrs Weight 58.695 kg Physical Exam Narrative: EXAM NARRATIVE: General: No acute distress, AO x3 HEENT: PERRLA, pupils bilaterally equal and reactive Chest: Normal vesicular breath sounds, no added sounds, equal good air entry bilaterally CVS: S1-S2 regular, no murmurs, no tachycardia, no gallops, no rubs Abdomen: Soft, mild tenderness in left paraumblical region on deep palpation, no gaurding, no renal angle tenderness, no rebound, no organomegaly, bowel sounds present Neuro: No focal deficits, no facial deformity, AO x3, power 5/5 in all limbs Data : 12/12/19 11:00 12/12/19 11:00 A&P Assessment and plan (1) Syncope: Status: Acute Qualifiers: Syncope type: unspecified Qualified Code(s): R55 - Syncope and collapse (2) Transient cerebral ischemia: Status: Acute Qualifiers: Transient cerebral ischemia type: unspecified Qualified Code(s): G45.9 - Transient cerebral ischemic attack, unspecified (3) Carotid stenosis, bilateral: Status: Acute (4) Hypotension: Status: Acute Qualifiers: Hypotension type: unspecified hypotension type Qualified Code(s): I95.9 - Hypotension, unspecified (5) CAD (coronary artery disease): Status: Acute Qualifiers: Coronary Disease-Associated Artery/Lesion type: [place] artery [place] vs. transplanted heart: [place] heart Associated angina: without angina Qualified Code(s): I25.10 - Atherosclerotic heart disease of [place] coronary artery without angina pectoris (6) HTN (hypertension): Status: Acute Qualifiers: Hypertension type: essential hypertension Qualified Code(s): I10 - Essential (primary) hypertension (7) Dyslipidemia: Status: Acute Additional A&P Information 74-year-old gentleman past medical history of nonobstructive CAD presented with recurrent episodes of presyncope while he is trying to help his mostly brought upon exertion and lifting heavy weight presented to the ER today. Exertional presyncope: Can have varied etiology of patient's symptoms. Could be secondary to TIA versus unstable angina from nonobstructive CAD versus hypotension because of polypharmacy. Nonobstructive CAD: Follows with Dr. Vizcarra as an outpatient. His last coronary angiogram in 2017 was noted to have minor irregularities in left main LAD and circumflex and proximal RCA with 40 to 50% and distal RCA with 60 to 70% stenosis. FFR was 0.9. Cardiology consulted. Will discuss if patient needs cardiac angiogram versus stress test. Continue to monitor troponins, EKG. Patient is chest pain-free for now. TIA: Significant stenosis in the carotid on the CTA today. CT head negative for any active stroke. Case discussed with Dr. Schwarz. Patient would most likely require carotid endarterectomy versus carotid stenting in this admission but needs cardiology evaluation to rule out obstructive CAD prior to the procedure. Case was discussed with Dr. Chen in the ER and was not with good candidate for TPA. Echocardiogram, lipid panel, HbA1c, admit with telemetry. Given aspirin 325 mg in the ER. Continue with 81 mg daily. Atorvastatin 80 mg daily. Hypertension: Hold off on antihypertensives for now. Given occasional bradycardia will also hold off on metoprolol. We will monitor blood pressures closely. Goal blood pressure around 160 mmHg. For now hold off on antihypertensives and continue to monitor blood pressures. Start patient on normal saline at 75 cc/h. Full code. Cardiac diet. Lovenox for DVT prophylaxis Patient's care were discussed both with patient and his daughter Ms. Tijerina. All the questions were answered. Attestations Medical Necessity Statement*: More than 2 midnights for evaluation of syncope., Evaluation for CAD, significant carotid artery stenosis. Time Spent in Patient Care: Greater than 35 minutes (>than 50% of time spent in counselling and/or direct pt care on unit). Coding Level of Care Code Acute Student Records Specialist for Elicia Agarwal Diagnoses Syncope R55 Syncope type: unspecified Transient cerebral ischemia G45.9 Transient cerebral ischemia type: unspecified Carotid stenosis, bilateral I65.23 Hypotension I95.9 Hypotension type: unspecified hypotension type CAD (coronary artery disease) I25.10 Coronary Disease-Associated Artery/Lesion type: [place] artery [place] vs. transplanted heart: [place] heart Associated angina: without angina HTN (hypertension) I10 Hypertension type: essential hypertension Dyslipidemia E78.5
[2019-12-12] MEDS: acetaminophen 325 mg Tablet 650 MG PO (20:09)
--- NOTE | 2019-12-12 21:48 | PC.NURSE ---
Noted patient to have a heart rate that has dropped to low 50s. Patient denies dizziness or lightheadedness only c/o feeling tired. Informed Dr Wallis. No orders received. Will continue to monitor.
--- NOTE | 2019-12-12 22:17 | ECG_ITS ---
[facility] Test Date: 2019-12-12 Pat Name: Finn Hannon Department: Room: 101 Gender: Male Dance Therapist: valentino GORDONB: 1945 Requested By: Viktor Davalos Order Number: [id number] Celso MD: Jocelynn Dominguez M.D. Measurements Intervals [place] Rate: 53 P: 57 IL: 148 QRS: -1 QRSD: 87 T: 16 QT: 438 QTc: 412 Interpretive Statements SINUS BRADYCARDIA Compared to ECG 12/12/2019 15:34:28 Sinus rhythm no longer present T-wave abnormality no longer present Electronically Signed On 12-13-2019 12:50:45 CDT by Jocelynn Dominguez M.D. [id number]
[2019-12-12] MEDS: HYDROcodone-acetaminophen 5-325 mg Tablet 1 TAB PO (22:47)
[2019-12-13 03:14] VITALS: BP 101/63; PULSE 54; RESP 12; TEMP 36.6; O2SAT 98
[2019-12-13] MEDS: sodium chloride 0.9% 1,000 ML 75 ML IV (03:50)
--- NOTE | 2019-12-13 03:53 | PC.NURSE ---
PT IS UP IN CHAIR. PT C/O 11/13 PAIN IN LEFT SHOULDER. PT DOESN'T WANT ANY PAIN MEDICATION AT THIS TIME. WILL CONTINUE TO MONITOR.
[2019-12-13 05:47] LABS: Basophils % 0.4 %; Eosinophils # 0.2 10^3/uL (0.0-0.8); Eosinophils % 3.2 %; Hematocrit 33.7 % (42.0-52.0); Hemoglobin 10.2 g/dL (11.7-16.6); Lymphocytes # 1.3 10^3/uL (0.8-4.8); Lymphocytes % 27.7 %; Mean Corpuscular HGB Conc 30.3 g/dL (30.0-36.0); Mean Corpuscular Hemoglobin 26.8 pg (28.0-34.0); Mean Corpuscular Volume 88.7 fL (80-94); Monocytes # 0.6 10^3/uL (0.2-0.9); Monocytes % 13.5 %; Neutrophils # 2.58 10^3/uL (1.8-7.7); Neutrophils % 54.6 %; Nucleated Red Blood Cells % 0 %; Platelet Count 290 10^3/cmm (130-400); Red Cell Distribution Width 16.2 % (12.1-15.1); White Blood Count 4.7 10^3/uL (4.0-10.0)
[2019-12-13 06:09] LABS: Chol HDL Ratio 3.47 mg/dL (1.0-5.00); Cholesterol 163 mg/dL (0-200); HDL Cholesterol 47 mg/dL (60-100); LDL Cholesterol Calculated 102 mg/dL (50-129); Triglycerides 69 mg/dL (0-150); VLDL Cholestrol Calculation 14 mg/dL (0-30)
[2019-12-13 06:10] LABS: Estmated Average Glucose 114; Hemoglobin A1C 5.6 % (4.0-6.0)
[2019-12-13 06:38] LABS: Alanine Aminotransferase 7 U/L (0-41); Albumin Level 3.5 g/dL (3.5-5.2); Alkaline Phosphatase 41 IU/L (40-130); Anion Gap 11.9 (5-19); Aspartate Amino Transferase 15 U/L (0-40); Blood Urea Nitrogen 18 mg/dL (8-23); Calcium 9.7 mg/dL (8.5-10.5); Carbon Dioxide 22 mmol/L (22-29); Chloride 108 mmol/L (98-107); Globulin 3.1 g/dL (1.3-4.6); Glucose 94 mg/dL (65-115); Osmolality Calculated 282 mOsm/kg (285-295); Potassium 3.9 mmol/L (3.5-5.1); Sodium 138 mmol/L (136-145); Total Bilirubin 0.3 mg/dL (0.15-1.2); Total Protein 6.6 g/dL (6.6-8.7)
[2019-12-13 07:10] VITALS: BP 134/66; PULSE 54; RESP 18; TEMP 36.7; O2SAT 90
--- NOTE | 2019-12-13 09:16 | P.CONIM_ITS ---
Providers/Reason For Consult Consulting Physican/Specialty*: Cardiothoracic surgery Reason for Consult*: Carotid artery stenosis with history of near syncope and syncope Attending Physician: Yan Aldrich MD Primary Care Provider: Marques Sterling MD History of Present Illness History of Present Illness Finn Hannon is a 74 year old male admitted as inpatient yesterday after presenting to the emergency department for recurrent episodes of near syncope and one episode of presumed syncope on the morning of presentation. Patient reported some dizziness associate with exertion as well as a feeling of fullness and tightness and his neck during his episodes. He also complains of some left arm pain and intermittently, though this may be positional. With these episodes he also complains of diaphoresis and marked dyspnea. Dr. Fried from ER medicine reported upon presentation the patient had left facial droop and extremely slurred speech. Apparently, he was unable to lift his arms at that time. All of the symptoms resolved early during his presentation and after consulting with neurology by phone, it was felt that he should not receive TPA. He has had no further symptomatology since presentation. There is a past history of known coronary artery disease involving the RCA. He has been followed by Dr. Vizcarra, last being seen November 2018. Previous left heart catheterization revealed a RCA lesion of 60 to 70% and minimal irregularities elsewhere. FFR of this RCA lesion was 0.9. Initial troponins this admission have been negative. Radiographic evaluation included CTA of the head which was normal. CTA of the neck reveals an 86% left proximal ICA stenosis and 60% right ICA stenosis. He is currently resting comfortably in room 101 at the stepdown unit. During my evaluation, he has no further complaints of recurrent symptoms. I have conferred with Dr. Dominguez from cardiology. Mr. Hannon is tentatively scheduled for cardiac stress testing Sunday. I do note from his presenting urinalysis what appears to be an asymptomatic UTI. I will initiate Levaquin. I would note, this is a discrepancy from documentation listed in the ER physician report upon his presentation where the urinalysis there is described as essentially unremarkable. Review of Systems Const: Denies: fever(s), chills, change in appetite, change in weight, fatigue or night sweats Eyes: Denies: change in vision or blurry vision ENMT: Denies: odynophagia or hoarseness Card: Reports: lightheadedness, pre-syncope and dyspnea on exertion; Denies: chest pain, palpitations, irregular heart rhythm or edema Resp: Reports: dyspnea (With exertion); Denies: productive cough GI: Denies: abdominal pain, nausea, vomiting, dysphagia, heartburn or change in bowel habits : Denies: difficulty urinating, dysuria, urinary frequency, urinary urgency or urinary hesitancy Musc: Denies: extremity pain or extremity swelling Skin/Breast: Denies: rash Neuro: Denies: headache(s), numbness in extremities, weakness in extremities or sensory changes Psych: Denies: anxiety, depression or change in appetite Endo: Denies: polyuria, polydipsia or cold intolerance Esdras/Lymph: Denies: easy bruising, easy bleeding, petechiae or enlarged lymph nodes Meds/Allergies Home Medications and Allergies Home Medications Medication Instructions Recorded Confirmed Last Taken Type metoprolol succinate 25 mg 25 mg PO DAILY #90 tab 08/15/19 12/12/19 12/12/19 Rx tablet,extended release 24 hr lisinopril 10 mg tablet 10 mg PO DAILY #90 tab 12/05/19 12/12/19 12/12/19 Rx isosorbide mononitrate 30 mg PO DAILY 12/12/19 12/12/19 12/12/19 History omeprazole 40 mg PO DAILY 12/12/19 12/12/19 12/12/19 History rosuvastatin [Crestor] 10 mg PO DAILY 12/12/19 12/12/19 12/11/19 History tamsulosin [Flomax] 0.4 mg PO DAILY 12/12/19 12/12/19 12/12/19 History Allergies Allergy/AdvReac Type Severity Reaction Status Date / Time No Known Allergies Allergy Unverified 08/15/19 10:20 Current Medications Current Medications Generic Name Dose Route Start Last Admin Trade Name Freq PRN Reason Stop Dose Admin Acetaminophen 650 mg 12/12/19 16:49 12/12/19 20:09 Tylenol PO 650 mg Q6H PRN Administration Mild/Mod Pain Or Temp >/= 101 Atorvastatin Calcium 80 mg 12/12/19 14:50 12/12/19 18:09 Lipitor PO 80 mg BEDTIME DASHA Administration Enoxaparin Sodium 40 mg 12/12/19 17:00 08/07/20 18:09 Lovenox SUBCUT 40 mg Q24H DASHA Administration Sodium Chloride 1,000 mls @ 75 mls/hr 12/12/19 14:15 12/13/19 03:50 Sodium Chloride 0.9% IV 75 mls/hr .[id number] DASHA Administration PFSH Acute PFSH: Medical History BPH (benign prostatic hyperplasia) CAD (coronary artery disease) Carotid stenosis, bilateral Dyslipidemia GERD (gastroesophageal reflux disease) Hiatal hernia HTN (hypertension) Surgical History H/O arthroscopy of knee H/O arthroscopy of shoulder History of hip replacement, total Hx of inguinal hernia surgery Vitals/I&O/Wt Last Vital Signs Temp 98.0 F 12/13/19 07:10 Pulse 54 L 12/13/19 07:10 Resp 18 12/13/19 07:10 BP 134/66 12/13/19 07:10 Pulse Ox 90 12/13/19 07:10 12/12/19 12/13/19 12/13/19 22:59 06:59 14:59 Intake Total 998.75 / 2981.10 360 / 360 Balance 998.75 / 2981.10 360 / 360 Weight last 48 hrs Weight 129 lb 6.4 oz Physical Exam Const: COMMON NORMALS: patient oriented x3 and alert ORIENTATION/CONSCIOUSNESS: Yes oriented to person, Yes oriented to place and Yes oriented to time HENMT: COMMON NORMALS: normocephalic HEAD & SCALP: normocephalic Neck/C-Spine: COMMON NORMALS: full ROM, supple, no JVD and No carotid bruits GENERAL: Yes trachea midline CERVICAL SPINE: Yes cervical ROM normal Chest: COMMONS NORMALS: normal inspection of the chest and normal palpation of entire chest wall Resp: COMMON NORMALS: normal respiratory effort, No use of accessory muscles, clear to auscultation bilaterally and percussion normal EFFORT & INSPECTION: Yes able to speak in complete sentences and Yes symmetric chest movement AUSCULTATION: clear to auscultation bilaterally PERCUSSION: percussion normal Cardio: COMMON NORMALS: no JVD, regular rate, regular rhythm, S1 normal heart sound present, S2 normal heart sound present, No gallops present (Cardio), No murmurs present (Cardio) and No rub (Cardio) JUGULAR VENOUS DISTENTION: no JVD RATE: regular rate RHYTHM: regular rhythm HEART SOUNDS: S1 normal heart sound present and S2 normal heart sound present PERIPHERAL PULSES: radial pulses present Extremity: OTHER: He does have decreased range of motion of his shoulders bilaterally, having previously had orthopedic surgery. Neuro: COMMON NORMALS: patient oriented x3, no focal motor deficits and no sensory deficits noted SENSORIUM/ORIENTATION: Yes alert, Yes oriented to person, Yes oriented to place and Yes oriented to time GAIT: Yes Normal gait present A&P Assessment and plan (1) Carotid stenosis, bilateral: I have personally reviewed the CTA of the neck and the described lesions. Mr. Hannon is currently scheduled for cardiac stress testing on Sunday. Also note there is a discrepancy in his urinalysis. The original urinalysis listed in the ER physician documentation describes essentially clear urine though the one listed on his chart actively right now and describes what appears to be a urinary tract infection. This discrepancy will need to be resolved. Empirically, at this time, will place him on Levaquin and recommend a repeat urinalysis on Sunday morning. Will await the results of the cardiac stress testing to make further determinations as to timing for proceeding to address his documented carotid disease. Rationale for our evaluation was carefully discussed with Mr. Hannon and he is in agreement. Status: Acute Consult Attestations Medical Necessity Statement: Syncopal episode with documented carotid artery stenosis and history of coronary artery disease Time Spent in Patient Care: Greater than 35 minutes Coding Level of Care Code Acute Project Systems Engineer for [facility] Any Diagnoses Carotid stenosis, bilateral I65.23
--- NOTE | 2019-12-13 10:29 | PM.PN ---
Subjective Subjective: Interval history: No acute events overnight overnight patient's telemetry shows heart rate running in 50s. Today morning. Walk across in the [place]. During the walk he did experience tightness in his neck and mild shortness of breath. He denies of having any nausea, vomiting, headache, weakness in any of his arms, dizziness. Vitals/I&O/Wt Last Vital Signs Temp 98.0 F 12/13/19 07:10 Pulse 54 L 12/13/19 07:10 Resp 18 12/13/19 07:10 BP 134/66 12/13/19 07:10 Pulse Ox 90 12/13/19 07:10 12/12/19 12/13/19 12/13/19 22:59 06:59 14:59 Intake Total 998.75 / 2981.10 360 / 360 Balance 998.75 / 2981.10 360 / 360 Weight last 48 hrs Weight 58.695 kg Physical Exam Narrative: EXAM NARRATIVE: General: No acute distress, AO x3 HEENT: PERRLA, pupils bilaterally equal and reactive Chest: Normal vesicular breath sounds, no added sounds, equal good air entry bilaterally CVS: S1-S2 regular, no murmurs, no tachycardia, no gallops, no rubs Abdomen: Soft, mild tenderness in left paraumblical region on deep palpation, no gaurding, no renal angle tenderness, no rebound, no organomegaly, bowel sounds present Neuro: No focal deficits, no facial deformity, AO x3, power 5/5 in all limbs Data : 12/13/19 05:07 12/13/19 05:07 A&P Assessment and plan (1) Syncope: Status: Acute Qualifiers: Syncope type: unspecified Qualified Code(s): R55 - Syncope and collapse (2) Transient cerebral ischemia: Status: Acute Qualifiers: Transient cerebral ischemia type: unspecified Qualified Code(s): G45.9 - Transient cerebral ischemic attack, unspecified (3) Carotid stenosis, bilateral: Status: Acute (4) Hypotension: Status: Acute Qualifiers: Hypotension type: unspecified hypotension type Qualified Code(s): I95.9 - Hypotension, unspecified (5) CAD (coronary artery disease): Status: Acute Qualifiers: Associated angina: without angina Coronary Disease-Associated Artery/Lesion type: [place] artery [place] vs. transplanted heart: [place] heart Qualified Code(s): I25.10 - Atherosclerotic heart disease of [place] coronary artery without angina pectoris (6) HTN (hypertension): Status: Acute Qualifiers: Hypertension type: essential hypertension Qualified Code(s): I10 - Essential (primary) hypertension (7) Dyslipidemia: Status: Acute Additional A&P Information 74-year-old gentleman past medical history of nonobstructive CAD presented with recurrent episodes of presyncope while he is trying to help his mostly brought upon exertion and lifting heavy weight presented to the ER today. Exertional presyncope: Can have varied etiology of patient's symptoms. Could be secondary to TIA versus unstable angina from nonobstructive CAD versus hypotension because of polypharmacy. Nonobstructive CAD: Follows with Dr. Vizcarra as an outpatient. His last coronary angiogram in 2017 was noted to have minor irregularities in left main LAD and circumflex and proximal RCA with 40 to 50% and distal RCA with 60 to 70% stenosis. FFR was 0.9. Appreciate cardiology recommendations. Plan for patient to undergo test test on Sunday. Will await results. For now we will continue with aspirin and statin. TIA: Significant stenosis in the carotid on the CTA today. CT head negative for any active stroke. Case discussed with Dr. Schwarz. Patient would most likely require carotid endarterectomy versus carotid stenting in this admission but needs cardiology evaluation to rule out obstructive CAD prior to the procedure. Case was discussed with Dr. Chen in the ER and was not with good candidate for TPA. Continue with aspirin and statins. Continue with telemetry. Hypertension: Hold off on antihypertensives for now. Given occasional bradycardia will also hold off on metoprolol. We will monitor blood pressures closely. Goal systolic blood pressure around 160 mmHg. For now hold off on antihypertensives and continue to monitor blood pressures. Stop IV fluids. Patient tolerating oral diet well. Full code. Cardiac diet. Lovenox for DVT prophylaxis Patient's care were discussed both with patient and his daughter Ms. Tijerina. All the questions were answered. Attestations Medical Necessity Statement*: Unstable angina, presyncope, carotid stenosis Time Spent in Patient Care: Greater than 35 minutes (>than 50% of time spent in counselling and/or direct pt care on unit). Coding Level of Care Code Acute Litigation Secretary for Elicia Agarwal Diagnoses Syncope R55 Syncope type: unspecified Transient cerebral ischemia G45.9 Transient cerebral ischemia type: unspecified Carotid stenosis, bilateral I65.23 Hypotension I95.9 Hypotension type: unspecified hypotension type CAD (coronary artery disease) I25.10 Associated angina: without angina Coronary Disease-Associated Artery/Lesion type: [place] artery [place] vs. transplanted heart: [place] heart HTN (hypertension) I10 Hypertension type: essential hypertension Dyslipidemia E78.5
[2019-12-13] MEDS: aspirin 81 mg EC Tablet PO (10:35)
[2019-12-13] MEDS: pantoprazole DR 40 mg Tablet PO (10:35)
[2019-12-13 10:40] VITALS: BP 128/71; PULSE 54; RESP 14; TEMP 36.4; O2SAT 97
[2019-12-13 11:09] LABS: Bilirubin Urine Neg (NEGATIVE); Blood Urine 3+ (Negative); Glucose Urine UA Norm (Normal); Ketones Urine Negative (Negative); Nitrate Urine Negative (Negative); Protein Urine Neg (Negative); Urine Appearance Clear (CLEAR); Urine Color Straw (Yellow); pH Urine 5 (5-7)
[2019-12-13 11:10] LABS: Add Urine Culture? Yes; Add Urine Microscopic? YES; Bacteria Urine 3+; Leukocyte Esterase Urine Trace (Negative); RBC Urine 0-4 /hpf (0-2); Urobilinogen Urine Norm (Negative); WBC Urine 0-4 /hpf (0-5)
--- NOTE | 2019-12-13 12:22 | PM.PN ---
Subjective Subjective: Interval history: Patient remains in sinus bradycardia or sinus rhythm on telemetry. Patient did walk down the [place] and experienced mild dizziness and tightness around his neck with shortness of breath. He denies having any exertional chest discomfort. Medications: Reviewed: Yes Medication Review Details: Current Medications Acetaminophen (Tylenol) 650 mg PO Q6H PRN PRN Reason: Mild/Mod Pain Or Temp >/= 101 Last Admin: 12/12/19 20:09 Dose: 650 mg Documented by: Aspirin (Aspirin Ec) 81 mg PO DAILY [facility] Last Admin: 12/13/19 10:35 Dose: 81 mg Documented by: Atorvastatin Calcium (Lipitor) 80 mg PO BEDTIME [facility] Last Admin: 12/12/19 18:09 Dose: 80 mg Documented by: Bisacodyl (Dulcolax) 10 mg PO DAILY PRN PRN Reason: CONSTIPATION Enoxaparin Sodium (Lovenox) 40 mg SUBCUT Q24H [facility] Last Admin: 12/12/19 18:09 Dose: 40 mg Documented by: Metoprolol Succinate (Toprol Xl) 12.5 mg PO DAILY [facility] Ondansetron HCl (Zofran) 4 mg IVP Q8H PRN PRN Reason: vomiting, or N/V if npo Pantoprazole Sodium (Protonix) 40 mg PO DAILY [facility] Last Admin: 12/13/19 10:35 Dose: 40 mg Documented by: Vitals/I&O/Wt Last Vital Signs Temp 97.5 F L 12/13/19 10:40 Pulse 54 L 12/13/19 10:40 Resp 14 12/13/19 10:40 BP 128/71 12/13/19 10:40 Pulse Ox 97 12/13/19 10:40 12/12/19 12/13/19 12/13/19 22:59 06:59 14:59 Intake Total 998.75 / 2981.10 360 / 360 Output Total 100 / 100 Balance 998.75 / 2981.10 260 / 260 Weight last 48 hrs Weight 129 lb 6.4 oz Physical Exam Narrative: EXAM NARRATIVE: GENERAL: Averagely built and averagely nourished in no acute distress HEENT: Extraocular movement intact. Pupils equal round reactive to light. No pallor or icterus. NECK: central trachea, No JVD, + carotid bruit. CARDIOVASCULAR SYSTEM: S1-S2 regular. No murmur rubs or gallops. RESPIRATORY SYSTEM: Chest clear to auscultation. No wheezes rhonchi or rubs heard. No use of accessory muscles. EXTREMITIES: No cyanosis or clubbing. No edema. No signs of chronic venous insufficiency. C4 PLANNER: Patient is alert oriented ?3. No focal neurological deficits. Data : 12/13/19 05:07 12/13/19 05:07 A&P Assessment and plan (1) Syncope: Status: Acute Qualifiers: Syncope type: unspecified Qualified Code(s): R55 - Syncope and collapse (2) Transient cerebral ischemia: Status: Acute Qualifiers: Transient cerebral ischemia type: unspecified Qualified Code(s): G45.9 - Transient cerebral ischemic attack, unspecified (3) Carotid stenosis, bilateral: Symptomatic left carotid stenosis of 84% and right carotid stenosis of 63%. Status: Acute (4) CAD (coronary artery disease): H/o non obstructive CAD with exertional symptoms and dizzy spells. -I think he is symptoms are mostly in setting of carotid artery stenosis. However he does have history of coronary artery disease with proximal RCA 40% mid RCA 50% and distal RCA 60 to 70% stenosis. FFR of 0.9 for distal RCA lesion. -I will plan for lexiscan MPI on Sunday and based on that decide on timing of carotid endarterectomy and coronary angiogram +/- stenting (requiring DAPT). -This was decided after long discussion with the patient and his daughter (Breezy). They are in agreement with the plan. -The case was also discussed with Dr. Jerez and Dr. Schwarz. -continue ASA, statin and start on low-dose metoprolol. Status: Acute Qualifiers: Coronary Disease-Associated Artery/Lesion type: [place] artery [place] vs. transplanted heart: [place] heart Associated angina: without angina Qualified Code(s): I25.10 - Atherosclerotic heart disease of [place] coronary artery without angina pectoris (5) HTN (hypertension): History of hypertension was hypotensive on admission. Antihypertensives have been held. Status: Acute Qualifiers: Hypertension type: essential hypertension Qualified Code(s): I10 - Essential (primary) hypertension (6) Dyslipidemia: On atorvastatin Status: Acute Additional A&P Information Hypotension?resolved History of obstructive sleep apnea History of bradycardia Anemia Attestations Medical Necessity Statement*: Patient needs hospital stay for symptomatic carotid stenosis, dizziness and exertional dyspnea Coding Level of Care Code Acute Wash And Greaser for Chg Fwd Diagnoses Syncope R55 Syncope type: unspecified Transient cerebral ischemia G45.9 Transient cerebral ischemia type: unspecified Carotid stenosis, bilateral I65.23 CAD (coronary artery disease) I25.10 Coronary Disease-Associated Artery/Lesion type: [place] artery [place] vs. transplanted heart: [place] heart Associated angina: without angina HTN (hypertension) I10 Hypertension type: essential hypertension Dyslipidemia E78.5
[2019-12-13] MEDS: metoprolol succinate ER (24 HR) 25 mg Tablet 12.5 MG PO (14:23)
[2019-12-13 15:01] VITALS: BP 125/65; PULSE 54; RESP 16; TEMP 36.8; O2SAT 95
--- NOTE | 2019-12-13 16:13 | PC.CHAP ---
Pastoral Care Encounter/Spiritual Assessment Type of Contact [] Declined cyber defense forensics analyst visit [] Patient/Family/Request visit [] Outpatient visit [] Follow-up visit [] Physician referral [] Code/Alert [X] Routine visit [] Staff referral [] Actively dying [] Patient sleeping [] Family support [] [] Out of room [] Palliative care [] [] Receiving care in room [] Pre-surgical visit [] Trauma [] Long length of stay [] ICU visit [] Other: Relational/Emotional Strength [] Patient feels connected with others/family/visitors/staff [] Distress [] Loneliness/isolation [] Abandonment Spirituality of Patient [] Person of Sparkle [] Attends Druze of their Sparkle [] Believes in Prayer [] Reads Bible or Tenriism materials [] There are Spiritual issues to be addressed Medical Service Representative Interventions [] Prayer [] Active listening [] Non-anxious presence [] Spiritual/emotional support [] Crisis/trauma care [] Spiritual counseling [] Bereavement support [] Provided bereavement packet [] Provided Bible/devotional materials [] Provided toy/stuffed animal, coloring book to patient or family member [] Provided Communion [] Anointing/[place] [] Salvation [] Completed spiritual assessment [] Other: Impact on Illness or Injury [] Angry [] Fearful [] Anxious [] Often cries [] Exhaustion [] Unable to work [] Unable to attend presybeterian [] Unable to walk/stand [] Unable to read [] Unable to drive [] Unable to eat/drink [] Unable to sleep [] Unable to be with family [] Patient intubated [] Other: Summary Time spent with patient
[2019-12-13] MEDS: enoxaparin 40 mg/0.4 mL Syringe SUBCUT (18:05)
[2019-12-13 19:32] VITALS: BP 129/69; PULSE 50; RESP 20; TEMP 36.8; O2SAT 98
[2019-12-13] MEDS: atorvastatin 40 mg Tablet 80 MG PO (20:44)
--- NOTE | 2019-12-13 21:03 | PC.NURSE ---
PT IS UP AD ARLETTE IN ROOM. HR IS EMILIANO IN THE 40'S WITH EXERTION. PT IS ASYMPTOMATIC. PT STATES THAT THERE IS A LITTLE PAIN IN SHOULDERS, BUT IS UNRATABLE. NURSE EDUCATED PT TO CALL OUT IF A PAIN PILL IS NEEDED. WILL CONTINUE TO MONITOR.
[2019-12-13 23:51] VITALS: BP 159/84; PULSE 55; RESP 15; TEMP 36.9; O2SAT 98
--- NOTE | 2019-12-14 03:30 | PC.NURSE ---
PT IS RESTING IN BED WITH EYES CLOSED. PT DENIES PAIN AT THIS TIME. PT IS SINUS EMILIANO 40-50'S THROUGHOUT THE NIGHT. WILL CONTINUE TO MONITOR.
[2019-12-14 04:00] VITALS: BP 146/83; PULSE 58; RESP 12; TEMP 36.7; O2SAT 98
[2019-12-14 04:48] LABS: Basophils % 0.3 %; Eosinophils # 0.1 10^3/uL (0.0-0.8); Eosinophils % 2.1 %; Hematocrit 35.3 % (42.0-52.0); Lymphocytes # 1.4 10^3/uL (0.8-4.8); Lymphocytes % 22.8 %; Mean Corpuscular HGB Conc 31.2 g/dL (30.0-36.0); Mean Corpuscular Hemoglobin 27.2 pg (28.0-34.0); Mean Corpuscular Volume 87.4 fL (80-94); Mean Platelet Volume 10.2 fL (7.4-10.4); Monocytes # 0.7 10^3/uL (0.2-0.9); Monocytes % 11.1 %; Neutrophils # 3.84 10^3/uL (1.8-7.7); Neutrophils % 63.4 %; Nucleated Red Blood Cells % 0 %; Platelet Count 303 10^3/cmm (130-400); Red Blood Count 4.04 10^6/uL (4.1-5.3); Red Cell Distribution Width 16.5 % (12.1-15.1); White Blood Count 6.1 10^3/uL (4.0-10.0)
[2019-12-14 05:15] LABS: Alanine Aminotransferase 7 U/L (0-41); Albumin Level 3.4 g/dL (3.5-5.2); Alkaline Phosphatase 39 IU/L (40-130); Anion Gap 10.9 (5-19); Aspartate Amino Transferase 12 U/L (0-40); Blood Urea Nitrogen 13 mg/dL (8-23); Carbon Dioxide 24 mmol/L (22-29); Chloride 108 mmol/L (98-107); Globulin 3.5 g/dL (1.3-4.6); Glucose 95 mg/dL (65-115); Osmolality Calculated 284 mOsm/kg (285-295); Potassium 3.9 mmol/L (3.5-5.1); Sodium 139 mmol/L (136-145); Total Bilirubin 0.2 mg/dL (0.15-1.2); Total Protein 6.9 g/dL (6.6-8.7)
[2019-12-14 05:43] VITALS: BMI 19.1
[2019-12-14 07:05] VITALS: BP 161/83; PULSE 53; RESP 16; TEMP 36.6; O2SAT 98
--- NOTE | 2019-12-14 08:56 | PM.PN ---
Subjective Subjective: Interval history: Mr. Hannon has no complaints. He is up in chair on rounds. Looks quite good. States he feels very well. Repeat urinalysis was improved though there is still 3+ bacteria and trace leukocyte esterase. I will proceed with treatment with Levaquin and repeat urinalysis tomorrow. No chest pain or further presyncopal episodes. Vitals/I&O/Wt Last Vital Signs Temp 97.8 F 12/14/19 07:05 Pulse 53 L 12/14/19 07:05 Resp 16 12/14/19 07:05 BP 161/83 12/14/19 07:05 Pulse Ox 98 12/14/19 07:05 12/13/19 12/14/19 12/14/19 22:59 06:59 14:59 Intake Total 240 / 840 240 / 240 Output Total 150 / 250 400 / 400 Balance 90 / 590 -160 / -160 Weight last 48 hrs Weight 152 lb 8 oz Weight 129 lb 12.8 oz Weight 129 lb 12.8 oz Weight 129 lb 6.4 oz Physical Exam Resp: COMMON NORMALS: normal respiratory effort, No retractions and clear to auscultation bilaterally EFFORT & INSPECTION: Yes able to speak in complete sentences AUSCULTATION: clear to auscultation bilaterally Cardio: COMMON NORMALS: regular rate, regular rhythm, S1 normal heart sound present, No gallops present (Cardio), No murmurs present (Cardio) and No rub (Cardio) RATE: regular rate RHYTHM: regular rhythm HEART SOUNDS: S1 normal heart sound present PERIPHERAL PULSES: radial pulses present positive bilateral 2+ Extremity: COMMON NORMALS: no clubbing, cyanosis or edema Data : 12/14/19 04:03 12/14/19 04:03 Micro: Microbiology 12/12/19 12:15 Urine Culture - Preliminary Urine,Clean Catch Gram Negative Rods 12/13/19 10:10 Urine Culture - Preliminary Urine,Clean Catch Gram Negative Rods A&P Assessment and plan (1) Syncope: Follow-up urinalysis was improved though still with bacteria and trace leukocyte esterase. I will proceed with Levaquin. Mr. Hannon is scheduled for stress testing tomorrow. I will follow-up with Dr. Dominguez and her recommendations following review of the stress test. Status: Acute Qualifiers: Syncope type: unspecified Qualified Code(s): R55 - Syncope and collapse Attestations Medical Necessity Statement*: Syncopal presentation with high-grade carotid artery stenosis and history for coronary artery disease Coding Level of Care Code Acute Dance Hall Hostess for Seamusg Fwd Diagnoses Syncope R55 Syncope type: unspecified
[2019-12-14] MEDS: levoFLOXacin 500 mg Tablet PO (09:20)
[2019-12-14] MEDS: metoprolol succinate ER (24 HR) 25 mg Tablet 12.5 MG PO (09:20)
[2019-12-14] MEDS: pantoprazole DR 40 mg Tablet PO (09:20)
[2019-12-14] MEDS: aspirin 81 mg EC Tablet PO (09:20)
[2019-12-14 10:45] LABS: Blood Urine 3+ (Negative); Glucose Urine UA Norm (Normal); Ketones Urine Negative (Negative); Protein Urine Neg (Negative); Specific Gravity, Urine 1.015 (1.005-1.030); Urine Appearance Cloudy (CLEAR); Urine Color Yellow (Yellow); pH Urine 5 (5-7)
[2019-12-14 10:46] LABS: Add Urine Microscopic? YES; Bilirubin Urine Neg (NEGATIVE); Leukocyte Esterase Urine 2+ (Negative); Nitrate Urine Positive (Negative); Urobilinogen Urine Norm (Negative)
[2019-12-14 10:47] LABS: Squamous Epithelial Cell Urine RARE (0-5); WBC Urine 25-40 /hpf (0-5)
[2019-12-14 10:48] LABS: Add Urine Culture? Yes; Bacteria Urine 4+
[2019-12-14 11:35] VITALS: BP 140/76; PULSE 64; RESP 18; TEMP 36.8; O2SAT 96
--- NOTE | 2019-12-14 12:34 | PM.PN ---
Subjective Subjective: Interval history: Patient denies having any chest pain. He feels better today. Does complain of some shortness of breath after eating and some tightness in his neck. Medications: Reviewed: Yes Medication Review Details: Current Medications Acetaminophen (Tylenol) 650 mg PO Q6H PRN PRN Reason: Mild/Mod Pain Or Temp >/= 101 Last Admin: 12/12/19 20:09 Dose: 650 mg Documented by: Aspirin (Aspirin Ec) 81 mg PO DAILY [facility] Last Admin: 12/14/19 09:20 Dose: 81 mg Documented by: Atorvastatin Calcium (Lipitor) 80 mg PO BEDTIME [facility] Last Admin: 12/13/19 20:44 Dose: 80 mg Documented by: Bisacodyl (Dulcolax) 10 mg PO DAILY PRN PRN Reason: CONSTIPATION Enoxaparin Sodium (Lovenox) 40 mg SUBCUT Q24H [facility] Last Admin: 12/13/19 18:05 Dose: 40 mg Documented by: Levofloxacin (Levaquin) 500 mg PO DAILY@0600 [facility]; Protocol Metoprolol Succinate (Toprol Xl) 12.5 mg PO DAILY [facility] Last Admin: 12/14/19 09:20 Dose: 12.5 mg Documented by: Ondansetron HCl (Zofran) 4 mg IVP Q8H PRN PRN Reason: vomiting, or N/V if npo Pantoprazole Sodium (Protonix) 40 mg PO DAILY [facility] Last Admin: 12/14/19 09:20 Dose: 40 mg Documented by: Vitals/I&O/Wt Last Vital Signs Temp 98.3 F 12/14/19 11:35 Pulse 64 12/14/19 11:35 Resp 18 12/14/19 11:35 BP 140/76 12/14/19 11:35 Pulse Ox 96 12/14/19 11:35 12/13/19 12/14/19 12/14/19 22:59 06:59 14:59 Intake Total 240 / 840 240 / 240 Output Total 150 / 250 600 / 600 Balance 90 / 590 -360 / -360 Weight last 48 hrs Weight 152 lb 8 oz Weight 129 lb 12.8 oz Weight 129 lb 12.8 oz Physical Exam Narrative: EXAM NARRATIVE: GENERAL: Averagely built and averagely nourished in no acute distress HEENT: Extraocular movement intact. Pupils equal round reactive to light. No pallor or icterus. NECK: central trachea, No JVD. CARDIOVASCULAR SYSTEM: S1-S2 regular. No murmur rubs or gallops. RESPIRATORY SYSTEM: Chest clear to auscultation. No wheezes rhonchi or rubs heard. No use of accessory muscles. EXTREMITIES: No cyanosis or clubbing. No edema. No signs of chronic venous insufficiency. COUNTER MOLDER: Patient is alert oriented ?3. No focal neurological deficits. Data : 12/14/19 04:03 12/14/19 04:03 Micro: Microbiology 12/12/19 12:15 Urine Culture - Preliminary Urine,Clean Catch Gram Negative Rods 12/13/19 10:10 Urine Culture - Preliminary Urine,Clean Catch Gram Negative Rods A&P Assessment and plan (1) Syncope: Status: Acute Qualifiers: Syncope type: unspecified Qualified Code(s): R55 - Syncope and collapse (2) Transient cerebral ischemia: Status: Acute Qualifiers: Transient cerebral ischemia type: unspecified Qualified Code(s): G45.9 - Transient cerebral ischemic attack, unspecified (3) Carotid stenosis, bilateral: Symptomatic left carotid stenosis of 84% and right carotid stenosis of 63%. Status: Acute (4) CAD (coronary artery disease): H/o non obstructive CAD with exertional symptoms and dizzy spells. -I think he is symptoms are mostly in setting of carotid artery stenosis. However he does have history of coronary artery disease with proximal RCA 40% mid RCA 50% and distal RCA 60 to 70% stenosis. FFR of 0.9 for distal RCA lesion. -I will plan for lexiscan MPI on Sunday and based on that decide on timing of carotid endarterectomy and coronary angiogram +/- stenting (requiring DAPT). -This was decided after long discussion with the patient and his daughter (Breezy). They are in agreement with the plan. -The case was also discussed with Dr. Jerez and Dr. Schwarz. -continue ASA, statin and start on low-dose metoprolol. Status: Acute Qualifiers: Coronary Disease-Associated Artery/Lesion type: [place] artery [place] vs. transplanted heart: [place] heart Associated angina: without angina Qualified Code(s): I25.10 - Atherosclerotic heart disease of [place] coronary artery without angina pectoris (5) HTN (hypertension): History of hypertension was hypotensive on admission. Antihypertensives have been held. -May have to restart antihypertensives. -Continue to monitor closely Status: Acute Qualifiers: Hypertension type: essential hypertension Qualified Code(s): I10 - Essential (primary) hypertension (6) Dyslipidemia: On atorvastatin Status: Acute Additional A&P Information Hypotension?resolved History of obstructive sleep apnea History of bradycardia Mild Anemia [id number]-kzlfheqf fritz UTI Attestations Medical Necessity Statement*: Needs hospital stay for symptomatic carotid artery stenosis and symptoms of exertional dyspnea and dizziness Coding Level of Care Code Acute Crisis Specialist for g Fwd Diagnoses Syncope R55 Syncope type: unspecified Transient cerebral ischemia G45.9 Transient cerebral ischemia type: unspecified Carotid stenosis, bilateral I65.23 CAD (coronary artery disease) I25.10 Coronary Disease-Associated Artery/Lesion type: [place] artery [place] vs. transplanted heart: [place] heart Associated angina: without angina HTN (hypertension) I10 Hypertension type: essential hypertension Dyslipidemia E78.5
--- NOTE | 2019-12-14 13:26 | P.PN_ITS ---
Subjective Subjective: Interval history: No acute events overnight. Patient denies having any chest pain. He feels better today. Does complain of some shortness of breath after eating and some tightness in his neck. Vitals/I&O/Wt Last Vital Signs Temp 98.3 F 12/14/19 11:35 Pulse 64 12/14/19 11:35 Resp 18 12/14/19 11:35 BP 140/76 12/14/19 11:35 Pulse Ox 96 12/14/19 11:35 12/13/19 12/14/19 12/14/19 22:59 06:59 14:59 Intake Total 240 / 840 600 / 600 Output Total 150 / 250 600 / 600 Balance 90 / 590 0 / 0 Weight last 48 hrs Weight 69.173 kg Weight 58.876 kg Weight 58.876 kg Physical Exam Narrative: EXAM NARRATIVE: General: No acute distress, AO x3 HEENT: PERRLA, pupils bilaterally equal and reactive Chest: Normal vesicular breath sounds, no added sounds, equal good air entry bilaterally CVS: S1-S2 regular, no murmurs, no tachycardia, no gallops, no rubs Abdomen: Soft, mild tenderness in left paraumblical region on deep palpation, no gaurding, no renal angle tenderness, no rebound, no organomegaly, bowel sounds present Neuro: No focal deficits, no facial deformity, AO x3, power 5/5 in all limbs Data : 12/14/19 04:03 12/14/19 04:03 Micro: Microbiology 12/12/19 12:15 Urine Culture - Preliminary Urine,Clean Catch Gram Negative Rods 12/13/19 10:10 Urine Culture - Preliminary Urine,Clean Catch Gram Negative Rods A&P Assessment and plan (1) Syncope: Status: Acute Qualifiers: Syncope type: unspecified Qualified Code(s): R55 - Syncope and collapse (2) Transient cerebral ischemia: Status: Acute Qualifiers: Transient cerebral ischemia type: unspecified Qualified Code(s): G45.9 - Transient cerebral ischemic attack, unspecified (3) Carotid stenosis, bilateral: Status: Acute (4) Hypotension: Status: Acute Qualifiers: Hypotension type: unspecified hypotension type Qualified Code(s): I95.9 - Hypotension, unspecified (5) CAD (coronary artery disease): Status: Acute Qualifiers: Coronary Disease-Associated Artery/Lesion type: [place] artery [place] vs. transplanted heart: [place] heart Associated angina: without angina Qualified Code(s): I25.10 - Atherosclerotic heart disease of [place] coronary artery without angina pectoris (6) HTN (hypertension): Status: Acute Qualifiers: Hypertension type: essential hypertension Qualified Code(s): I10 - Essential (primary) hypertension (7) Dyslipidemia: Status: Acute Additional A&P Information 74-year-old gentleman past medical history of nonobstructive CAD presented with recurrent episodes of presyncope while he is trying to help his mostly br ought upon exertion and lifting heavy weight presented to the ER today. Exertional presyncope: Can have varied etiology of patient's symptoms. Could be secondary to TIA versus unstable angina from nonobstructive CAD versus hypotension because of polypharmacy. Nonobstructive CAD: Follows with Dr. Vizcarra as an outpatient. His last coronary angiogram in 2016 was noted to have minor irregularities in left main LAD and circumflex and proximal RCA with 40 to 50% and distal RCA with 60 to 70% sten osis. FFR was 0.9. Appreciate cardiology recommendations. Plan for patient to undergo test test on Sunday. Will await results. For now we will continue with aspirin and statin. TIA: Significant stenosis in the carotid on the CTA today. CT head negative for any active stroke. Case discussed with Dr. Schwarz. Patient would most likely require carotid endarterectomy versus carotid stenting in this admission but needs cardiology evaluation to rule out obstructive CAD prior to the procedure. Case was discussed with Dr. Chen in the ER and was not with good candidate for TPA. Continue with aspirin and statins. Continue with telemetry. Hypertension: Hold off on antihypertensives for now. Given occasional bradycardia will also hold off on metoprolol. We will monitor blood pressures closely. Goal systolic blood pressure around 160 mmHg. For now hold off on antihypertensives and continue to monitor blood pressures. Stop IV fluids. Patient tolerating oral diet well. Cystitis: Denies of having any dysuria. Started on levofloxacin. We will continue the same for now. Will have to monitor kidney functions. Full code. Cardiac diet. Lovenox for DVT prophylaxis Patient's care were discussed both with patient and his daughter Ms. Tijerina. All the questions were answered. Attestations Medical Necessity Statement*: unstable angina, carotid artery stenosis Time Spent in Patient Care: Greater than 35 minutes (>than 50% of time spent in counselling and/or direct pt care on unit) . Coding Level of Care Code Acute Clinical Study Manager for [facility] Fwd Diagnoses Syncope R55 Syncope type: unspecified Transient cerebral ischemia G45.9 Transient cerebral ischemia type: unspecified Carotid stenosis, bilateral I65.23 Hypotension I95.9 Hypotension type: unspecified hypotension type CAD (coronary artery disease) I25.10 Coronary Disease-Associated Artery/Lesion type: [place] artery [place] vs. transplanted heart: [place] heart Associated angina: without angina HTN (hypertension) I10 Hypertension type: essential hypertension Dyslipidemia E78.5
[2019-12-14 15:24] VITALS: BP 138/80; PULSE 58; RESP 21; TEMP 36.7; O2SAT 98
[2019-12-14] MEDS: enoxaparin 40 mg/0.4 mL Syringe SUBCUT (18:09)
[2019-12-14 19:18] VITALS: BP 148/85; PULSE 63; RESP 16; TEMP 36.6
[2019-12-14] MEDS: atorvastatin 40 mg Tablet 80 MG PO (20:56)
[2019-12-14 23:47] VITALS: BP 154/98; PULSE 46; RESP 16
[2019-12-15] VITALS (8 sets, daily range): BP systolic 120–186; BP diastolic 76–98; PULSE 56–72; RESP 17–24; TEMP 36.5–36.8; O2SAT 95–97
[2019-12-15 04:59] LABS: Basophils % 0.3 %; Eosinophils # 0.1 10^3/uL (0.0-0.8); Eosinophils % 2.1 %; Hematocrit 34.3 % (42.0-52.0); Hemoglobin 10.7 g/dL (11.7-16.6); Lymphocytes # 1.5 10^3/uL (0.8-4.8); Lymphocytes % 25.9 %; Mean Corpuscular HGB Conc 31.2 g/dL (30.0-36.0); Mean Corpuscular Hemoglobin 27.2 pg (28.0-34.0); Mean Corpuscular Volume 87.1 fL (80-94); Mean Platelet Volume 10.6 fL (7.4-10.4); Monocytes # 0.7 10^3/uL (0.2-0.9); Monocytes % 11.3 %; Neutrophils % 60.1 %; Nucleated Red Blood Cells % 0 %; Platelet Count 306 10^3/cmm (130-400); Red Blood Count 3.94 10^6/uL (4.1-5.3); Red Cell Distribution Width 16.1 % (12.1-15.1); White Blood Count 5.8 10^3/uL (4.0-10.0)
--- NOTE | 2019-12-15 05:19 | PC.NURSE ---
PT IS RESTING IN BED AT THIS TIME. PT IS EAGER TO GET STRESS TEST DONE. PT DENIES PAIN AT THIS TIME. WILL CONTINUE TO MONITOR.
[2019-12-15 05:23] LABS: Alanine Aminotransferase 8 U/L (0-41); Albumin Level 3.3 g/dL (3.5-5.2); Alkaline Phosphatase 41 IU/L (40-130); Aspartate Amino Transferase 18 U/L (0-40); Blood Urea Nitrogen 16 mg/dL (8-23); Calcium 9.9 mg/dL (8.5-10.5); Carbon Dioxide 23 mmol/L (22-29); Chloride 107 mmol/L (98-107); Globulin 3.3 g/dL (1.3-4.6); Glucose 99 mg/dL (65-115); Osmolality Calculated 278 mOsm/kg (285-295); Sodium 136 mmol/L (136-145); Total Bilirubin 0.2 mg/dL (0.15-1.2); Total Protein 6.6 g/dL (6.6-8.7)
--- NOTE | 2019-12-15 06:00 | ECG_ITS ---
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 The baseline blood pressure was 138 /100 mm Hg with a heart rate of 60 beats/min. Lexiscan was infused over a period of 20 seconds. A total of 0.4 milligrams of Lexiscan was infused. The stress phase was continued for a total of 5 minutes. Heart rate at the end of the stress phase was 83 with a blood pressure 163/74. The EKG at the peak infusion revealed no significant changes. Sestamibi was injected 20 seconds after the Lexiscan infusion. Blood pressure at the end of the recovery phase was 150/78 with a heart rate of 72 per minute. CONCLUSION: 1. No significant EKG changes with the LexiScan infusion 2. No LexiScan induced chest pain or cardiac arrhythmia 3. Normal blood pressure and heart rate response 4. Sestamibi/sestamibi perfusion scan pending; see separate report. Electronically Signed On 12-15-2019 13:08:09 CDT by Ethan Vizcarra M.D. [id number]
[2019-12-15] MEDS: levoFLOXacin 500 mg Tablet PO (06:48)
--- NOTE | 2019-12-15 07:21 | PC.NURSE ---
Patient to stress test at this time. A&O, denies CP or SOB. Nurse to continue to monitor.
--- NOTE | 2019-12-15 07:38 | SUR.PREOP ---
Patient reports no pain or discomfort prior to the start of the procedure.
[2019-12-15] MEDS: regadenoson 0.4 Mg/5 ml Syringe IVP (08:00)
[2019-12-15] MEDS: pantoprazole DR 40 mg Tablet PO (09:27)
[2019-12-15] MEDS: aspirin 81 mg EC Tablet PO (09:27)
--- NOTE | 2019-12-15 09:29 | P.PN_ITS ---
Subjective Subjective: Interval history: This patient is admitted to hospital with complaints of syncope/TIA. He was found to have high-grade lesion in the left ICA of 84% and had a 60% stenosis in the right ICA, by CTA. His blood pressure was found to be elevated in the 170s today. He denies any chest pain or any chest tightness. He was complaining of some shortness of breath with activiti es. He had a myocardial perfusion imaging today which revealed no evidence of any significant coronary ischemia. He denies any other specific complaints at this time. Medications: Reviewed: Yes Medication Review Details: Current Medications Acetaminophen (Tylenol) 650 mg PO Q6H PRN PRN Reason: Mild/Mod Pain Or Temp >/= 101 Last Admin: 12/12/19 20:09 Dose: 650 mg Documented by: Aminophylline (Aminophylline) 25 mg IVP Q2M PRN PRN Reason: see dose instructions Stop: 12/16/19 07:40 Aspirin (Aspirin Ec) 81 mg PO DAILY [facility] Last Admin: 12/14/19 09:20 Dose: 81 mg Documented by: Atorvastatin Calcium (Lipitor) 80 mg PO BEDTIME [facility] Last Admin: 12/14/19 20:56 Dose: 80 mg Documented by: Bisacodyl (Dulcolax) 10 mg PO DAILY PRN PRN Reason: CONSTIPATION Enoxaparin Sodium (Lovenox) 40 mg SUBCUT Q24H [facility] Last Admin: 12/14/19 18:09 Dose: 40 mg Documented by: Levofloxacin (Levaquin) 500 mg PO DAILY@0600 [facility]; Protocol Last Admin: 12/15/19 06:48 Dose: 500 mg Documented by: Metoprolol Succinate (Toprol Xl) 12.5 mg PO DAILY [facility] Last Admin: 12/14/19 09:20 Dose: 12.5 mg Documented by: Nitroglycerin (Nitrostat) 0.4 mg SUBLINGUAL Q5M PRN PRN Reason: CHEST PAIN Stop: 12/16/19 07:40 Ondansetron HCl (Zofran) 4 mg IVP Q8H PRN PRN Reason: vomiting, or N/V if npo Ondansetron HCl (Zofran) 4 mg IVP Q2M PRN PRN Reason: NAUSEA Pantoprazole Sodium (Protonix) 40 mg PO DAILY [facility] Last Admin: 12/14/19 09:20 Dose: 40 mg Documented by: Vitals/I&O/Wt Last Vital Signs Temp 98.3 F 12/15/19 06:50 Pulse 65 12/15/19 09:27 Resp 20 H 12/15/19 09:27 BP 155/98 12/15/19 09:27 Pulse Ox 97 12/15/19 06:50 12/14/19 12/15/19 12/15/19 22:59 06:59 14:59 Intake Total 290 / 890 880 / 1770 Output Total 25 / 625 750 / 1375 Balance 265 / 265 130 / 395 Weight last 48 hrs Weight 152 lb 1.6 oz Weight 152 lb 8 oz Weight 129 lb 12.8 oz Physical Exam Narrative: EXAM NARRATIVE: GENERAL: The patient is alert and oriented times three. Not in any acute distress. HEENT: No significant pallor, icterus or lymphadenopathy.Oral cavity: There are no mucous membrane lesions. NECK: Trachea appears to be central. No masses noted. No JVD or thyromegaly appreciated. Carotid bruit bilaterally, more prominent on the left side. RESPIRATORY: Chest is symmetrical. No intercostals muscle retraction or any a ccessory muscle activation. There is no chest wall tenderness. Breath sounds are heard bilaterally. No rales or rhonchi heard. No evidence of any consolidation. BREASTS: Deferred. HEART: The heart sounds are normal. No S3 or S4. No significant murmurs. No pericardial rub ABDOMEN: No vessel pulsations or distention. No tenderness. No organomegaly appreciated. Bowel sounds are normally heard. : Deferred. RECTAL: Deferred. LYMPHATIC: No lymphadenopathy noted in the neck or groin. EXTREMITIES: No edema or cyanosis. No clubbing. Peripheral pulses are palpated in fairly good volume and amplitude MUSCULOSKELETAL: No acute joint deformities or swelling SKIN: There are no significant rashes or ecchymosis NEUROPSYCHIATRIC: The patient is alert and oriented x3. Appears to be in a good mood. No tremors or rigidity noted. Data : 12/15/19 04:13 12/15/19 04:13 Micro: Microbiology 12/13/19 10:10 Urine Culture - Final Urine,Clean Catch Enterobacter aerogenes 12/12/19 12:15 Urine Culture - Final Urine,Clean Catch Enterobacter aerogenes A&P Assessment and plan (1) Transient cerebral ischemia: Currently the patient has no focal neurological deficits. Status: Acute Qualifiers: Transient cerebral ischemia type: unspecified Qualified Code(s): G45.9 - Transient cerebral ischemic attack, unspecified (2) Benign essential hypertension with target blood pressure below 140/90: For better control of blood pressure, patient may be started amlodipine. I will be discussing this with the primary attending. Status: Acute (3) Atherosclerotic heart disease of [place] coronary artery without angina pectoris: The myocardial bridge imaging findings were discussed with the patient. Currently he has no specific symptoms of coronary ischemia. May continue on the current medications. Status: Acute Qualifiers: [place] vs. transplanted heart: [place] heart Qualified Code(s): I25.10 - Atherosclerotic heart disease of [place] coronary artery without angina pectoris (4) Carotid stenosis, bilateral: Patient was seen by Dr. Schwarz. Plan to have the carotid endarterectomy. Status: Acute (5) Dyslipidemia: May continue on the current medications. Status: Acute (6) Syncope: Patient has no recurrence of syncope. Etiology is not clear. Possibly related to the CVA. No similar arrhythmias on the monitor. Early signs are stable. Status: Acute Qualifiers: Syncope type: unspecified Qualified Code(s): R55 - Syncope and collapse Additional A&P Information Patient is overall cardiovascular status seems to be stable at this time. If he continues remain stable, may go ahead with the surgical intervention. 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 transplanted heart: [place] heart Carotid stenosis, bilateral I65.23 Dyslipidemia E78.5 Syncope R55 Syncope type: unspecified
[2019-12-15] MEDS: metoprolol succinate ER (24 HR) 25 mg Tablet 12.5 MG PO (09:34)
--- NOTE | 2019-12-15 09:57 | PC.NURSE ---
Patient back from stress test. IV in Left arm noted to be infiltrated. Warm to touch, red on inspection, patient reports that the site itches. Margin marked, IV discontinued, warm compress applied. Dr. Henry notified, no further orders received. New IV initiated in left wrist. Patient tolerated well. Nurse to continue to monitor.
--- NOTE | 2019-12-15 10:15 | PC.NURSE ---
Order for amlodipine clarified with Dr. Vizcarra as previous orders from Dr. Aldrich were to keep SBP around 160. Dr. Aldrich had held patient's home antihypertensives. Dr. Vizcarra instructed nurse to contact primary physician to clarify order. Dr. Henry contacted via telephone. Physician gave order for nurse to continue with the amlodipine administration, RBVO.
[2019-12-15] MEDS: amlodipine 5 mg Tablet PO (10:22)
--- NOTE | 2019-12-15 11:04 | PC.NURSE ---
Patient cleared after stress test for Dr. Schwarz per Dr. Vizcarra. Nurse clarified with Dr. Schwarz if patient needed to remain NPO. Dr. Schwarz gave telephone order to dc NPO status and start patient on a cardiac diet, RBVO.
--- NOTE | 2019-12-15 11:50 | PC.OT ---
Co-signature by Malinda Valenzuela OTR/L for eval completed by Ania Nieves, OTR/L
--- NOTE | 2019-12-15 13:06 | NMCV_ITS ---
NM lisa perf SPECT r/s* [id number] Finn Hannon Age: 74 Gender: M : 1945 Exam Date: 12/15/2019 06:59 Ordering Phys: Jocelynn Dominguez MD ([email or web address]) Technologist: ARNALDO Vasquez Exam Location: [facility] Indications: STROKE LIKE SYMPTOMS STRESS TEST [facility] IMAGE PROTOCOL Rest/Stress 1 Lexiscan Day Radiopharmaceutical Dose (mCi) Administration Site Administered by Rest: Tc-99m 10.9 IV ARNALDO Laurent Sestamibi Stress:Tc-99m 32.9 IV ARNALDO Laurent Sestamibi Rest: 15-Dec-2019 60 Discovery 630 Stress: 15-Dec-2019 30 Discovery 630 0.4mg Lexiscan. Supine position only as patient was unable to lay prone. SPECT RESULTS Technical Quality: Excellent Raw Data Analysis: Normal Image Corrections: No attenuation or motion correction applied Summed Stress Score: 1 Summed Rest Score: 1 Summed Difference Score: 0 PERFUSION FINDINGS A small area of decreased tracer uptake was noted in the basal, mid and apical inferior wall region, with no significant reversibility. FUNCTIONAL RESULTS (calculated via Gated SPECT) Stress Image LV EF (%): 61 Stress EDV (mL):94 TID: 0.97 Stress ESV (mL):37 FUNCTIONAL FINDINGS: Segmental wall motion analysis revealing no gross wall motion abnormalities. IMPRESSIONS 1. Myocardial perfusion imaging revealing a small area of persistent decreased tracer uptake in the inferior wall region, suggestive of myocardial scarring versus attenuation artifacts. 2. Normal LV ejection fraction of 61%. 3. LV wall motion analysis revealing no gross wall motion normalities. 4. Normal LV volume. No significant coronary ischemia, based on the above findings Dr Ethan Vizcarra MD FACC (Electronically Signed) Final Date: 15 December 2019 09:51 S
--- NOTE | 2019-12-15 13:40 | PC.NURSE ---
Dr. Schwarz at bedside to discuss plan of care with patient. Plan for left carotid endarectomy tomorrow 0700. Physician to put in orders. Patient family updated on plan of care via telephone. No questions at this time. Nurse to continue to monitor.
--- NOTE | 2019-12-15 13:42 | PM.PN ---
Subjective Subjective: Interval history: Mr. Hannon continues to do well and remains asymptomatic. He completed his nuclear stress testing today with a small fixed defect inferiorly but no evidence for ischemia. Preserved LV function. I have conferred with my colleague Dr. Dominguez by phone. Given his 86% left carotid artery stenosis, as well as possible TIA as noted from his ER presentation, it would be prudent to consider corrective measures. He is eager to proceed and wishes for surgery this admission. Therefore, we will totally plan for a left carotid endarterectomy tomorrow. Vitals/I&O/Wt Last Vital Signs Temp 98.0 F 12/15/19 10:28 Pulse 61 12/15/19 10:28 Resp 19 H 12/15/19 10:28 BP 120/80 12/15/19 10:28 Pulse Ox 97 12/15/19 10:28 12/14/19 12/15/19 12/15/19 22:59 06:59 14:59 Intake Total 290 / 890 880 / 1770 240 / 240 Output Total 25 / 625 750 / 1375 Balance 265 / 265 130 / 395 240 / 240 Weight last 48 hrs Weight 152 lb 1.6 oz Weight 152 lb 8 oz Weight 129 lb 12.8 oz Physical Exam Neck/C-Spine: GENERAL: Yes normal visual inspection and Yes trachea midline OTHER: He has a very light intermittent left carotid bruit. There is some slight decreased rotation of his neck but it is still with reasonably good range of motion. Resp: COMMON NORMALS: normal respiratory effort, No use of accessory muscles, clear to auscultation bilaterally and percussion normal AUSCULTATION: clear to auscultation bilaterally PERCUSSION: percussion normal Cardio: COMMON NORMALS: regular rate, regular rhythm, S1 normal heart sound present, No murmurs present (Cardio) and No rub (Cardio) RATE: regular rate RHYTHM: regular rhythm HEART SOUNDS: S1 normal heart sound present PERIPHERAL PULSES: radial pulses present positive bilateral 2+ Extremity: COMMON NORMALS: no clubbing, cyanosis or edema Neuro: COMMON NORMALS: no focal motor deficits and no sensory deficits noted Data : 12/15/19 04:13 12/15/19 04:13 Micro: Microbiology 12/13/19 10:10 Urine Culture - Final Urine,Clean Catch Enterobacter aerogenes 12/12/19 12:15 Urine Culture - Final Urine,Clean Catch Enterobacter aerogenes A&P Assessment and plan (1) Carotid stenosis, bilateral: 74-year-old gentleman with an 86% left ICA stenosis and presentation of near syncope with some localizing signs which resolved early during his presentation to the emergency department. He has a he has myocardial stress test ordered today was negative for acute ischemia with a small inferior fixed defect and preserved LV function. Given his high-grade left ICA lesion and presentation with possible TIA symptoms, left carotid endarterectomy is been recommended. Rationale for this was carefully discussed Mr. Hannon. Details and risks of the procedure were carefully and frankly reviewed. Risks reviewed include the possibility of , stroke, heart attack, major bleeding, infection, pneumonia, organ failure, failure to benefit, temporary or permanent hoarseness due to vocal cord paralysis, deviation of the tongue, swallowing difficulties, prolonged hospital stay, pain after the procedure, need for further procedures, inability to complete the procedure, and possible need for long-term followup. All questions were answered. Appropriate consents will be provided for review and signature. He is eager to proceed with surgery which we have tentatively scheduled for tomorrow morning. Status: Acute Attestations Medical Necessity Statement*: High-grade left carotid artery stenosis and recent episode of near syncope Time Spent in Patient Care: 16 - 35 minutes Coding Level of Care Code Acute Client Operations Manager for Elicia Agarwal Diagnoses Carotid stenosis, bilateral I65.23
[2019-12-15] MEDS: chlorhexidine gluconate 4% Btl 118 mL 1 APPLIC TOPICAL (15:00)
--- NOTE | 2019-12-15 16:01 | P.PN_ITS ---
Subjective Subjective: Interval history: This morning patient is doing well, sitting up into a chair, does state that he does intermittently become lightheaded, but overall doing better, he completed the first part of his stress test, no significant symptomatology, is anxiously awaiting his surgical intervention for his left carotid artery stenosis, no chest pain, no shortness of breath, no fac ial droop, no paralysis, no paresthesias, no numbness Vitals/I&O/Wt Last Vital Signs Temp 98.0 F 12/15/19 10:28 Pulse 67 12/15/19 14:58 Resp 18 12/15/19 14:58 BP 120/77 12/15/19 14:58 Pulse Ox 96 12/15/19 14:58 12/15/19 12/15/19 12/15/19 06:59 14:59 22:59 Intake Total 880 / 1770 240 / 240 Output Total 750 / 1375 Balance 130 / 395 240 / 240 Weight last 48 hrs Weight 68.991 kg Weight 69.173 kg Weight 58.876 kg Physical Exam Const: COMMON NORMALS: no acute distress and patient oriented x3 HENMT: COMMON NORMALS: normocephalic HEAD & SCALP: normocephalic Neck/C-Spine: COMMON NORMALS: no JVD Resp: COMMON NORMALS: normal respiratory effort, No retractions, No use of accessory muscles and clear to auscultation bilaterally AUSCULTATION: clear to auscultation bilaterally Cardio: COMMON NORMALS: no JVD, regular rate, regular rhythm, S1 normal heart sound present and S2 normal heart sound present RATE: regular rate RHYTHM: regular rhythm HEART SOUNDS: S1 normal heart sound present and S2 normal heart sound present GI: COMMON NORMALS: Normal to inspection, nondistended, normoactive bowel sounds present, Soft to palpation, non-tender, No hepatosplenomegaly present, no masses and no bruits PALPATION: Yes Soft to palpation and Yes No hepat osplenomegaly present Extremity: COMMON NORMALS: capillary refill normal, no clubbing, cyanosis or edema, no calf tenderness and no pedal edema Neuro: COMMON NORMALS: patient oriented x3 Psych: COMMON NORMALS: mental status grossly normal Data : 12/15/19 04:13 12/15/19 04:13 Micro: Microbiology 12/13/19 10:10 Urine Culture - Final Urine,Clean Catch Enterobacter aerogenes 12/12/19 12:15 Urine Culture - Final Urine,Clean Catch Enterobacter aerogenes A&P Assessment and plan (1) Syncope: Status: Acute Qualifiers: Syncope type: unspecified Qualified Code(s): R55 - Syncope and collapse (2) Transient cerebral ischemia: Status: Acute Qualifiers: Transient cerebral ischemia type: unspecified Qualified Code(s): G45.9 - Transient cerebral ischemic attack, unspecified (3) Carotid stenosis, bilateral: Status: Acute (4) Hypotension: Status: Acute Qualifiers: Hypotension type: unspecified hypotension type Qualified Code(s): I95.9 - Hypotension, unspecified (5) CAD (coronary artery disease): Status: Acute Qualifiers: Coronary Disease-Associated Artery/Lesion type: [place] artery [place] vs. transplanted heart: [place] heart Associated angina: without angina Qualified Code(s): I25.10 - Atherosclerotic heart disease of [place] coronary artery without angina pectoris (6) HTN (hypertension): Status: Acute Qualifiers: Hypertension type: essential hypertension Qualified Code(s): I10 - Essential (primary) hypertension (7) Dyslipidemia: Status: Acute Additional A&P Information 74-year-old gentleman past medical history of nonobstructive CAD presented with recurrent episodes of presyncope while he is trying to help his mostly brought upon exertion and lifting heavy weight presented to the ER today. Exertional presyncope: Can have varied etiology of patient's symptoms. Could be secondary to TIA versus unstable angina from nonobstructive CAD versus hypotension because of polypharmacy. Nonobstructive CAD: Follows with Dr. Vizcarra as an outpatient. His last coronary angiogram in 2017 was noted to have minor irregularities in left main LAD and circumflex and proximal RCA with 40 to 50% and distal RCA with 60 to 70% stenosis. FFR was 0.9. Will await cardiac stress test results and cardiac echocardiogram results Appreciate cardiology recommendations. . For now we will continue with aspirin and statin. TIA: Significant stenosis in the carotid on the CTA today. CT head negative for any active stroke. Case discussed with Dr. Schwarz. Patient would most likely require carotid endarterectomy versus carotid stenting in this admission but needs cardiology evaluation to rule out obstructive CAD prior to the procedure. Case was discussed with Dr. Chen in the ER and was not with good candidate for TPA. Continue with aspirin and statins. Continue with telemetry. Hypertension: Continue metoprolol, amlodipine. Avoid sudden reduction of blood pressure We will monitor blood pressures closely. Goal systolic blood pressure around 160 mmHg. Avoid sudden reduction of blood pressure For now hold off on antihypertensives and continue to monitor blood pressures. Stop IV fluids. Patient tolerating oral diet well. Cystitis: Denies of having any dysuria. Urine culture showing Enterobacter aerogenes, since sensitive to Levaquin, started on levofloxacin. We will continue the same for now. Will have to monitor kidney functions. Full code. Cardiac diet. 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 transplanted heart: [place] heart Associated angina: without angina HTN (hypertension) I10 Hypertension type: essential hypertension Dyslipidemia E78.5
[2019-12-15 18:51] LABS: Add Urine Microscopic? YES; Bilirubin Urine Neg (NEGATIVE); Blood Urine 3+ (Negative); Glucose Urine UA Norm (Normal); Ketones Urine Negative (Negative); Leukocyte Esterase Urine 1+ (Negative); Nitrate Urine Negative (Negative); Protein Urine Neg (Negative); Urine Appearance Clear (CLEAR); Urine Color Yellow (Yellow); Urobilinogen Urine Norm (Negative); pH Urine 6 (5-7)
[2019-12-15 18:53] LABS: Add Urine Culture? Yes; Bacteria Urine 2+; WBC Urine 15-25 /hpf (0-5)
--- NOTE | 2019-12-15 19:47 | PC.NURSE ---
PT IS UP AD ARLETTE IN ROOM. PT IS SINUS/SINUS EMILIANO. HR 40-60'S. PT DENIES PAIN AT THIS TIME. WILL CONTINUE TO MONITOR.
[2019-12-15] MEDS: atorvastatin 40 mg Tablet 80 MG PO (21:12)
[2019-12-16] VITALS (44 sets, daily range): BP systolic 76–154; BP diastolic 38–84; PULSE 40–76; RESP 12–21; TEMP 36.6–37.2; O2SAT 92–100; BMI 29.7
[2019-12-16 05:00] LABS: Basophils % 0.5 %; Eosinophils # 0.1 10^3/uL (0.0-0.8); Eosinophils % 1.8 %; Hematocrit 36.9 % (42.0-52.0); Hemoglobin 11.5 g/dL (11.7-16.6); Lymphocytes # 1.7 10^3/uL (0.8-4.8); Lymphocytes % 27.2 %; Mean Corpuscular HGB Conc 31.2 g/dL (30.0-36.0); Mean Corpuscular Hemoglobin 26.4 pg (28.0-34.0); Mean Corpuscular Volume 84.8 fL (80-94); Mean Platelet Volume 10.3 fL (7.4-10.4); Monocytes # 0.7 10^3/uL (0.2-0.9); Monocytes % 10.8 %; Neutrophils # 3.66 10^3/uL (1.8-7.7); Neutrophils % 59.2 %; Nucleated Red Blood Cells % 0 %; Platelet Count 355 10^3/cmm (130-400); Red Blood Count 4.35 10^6/uL (4.1-5.3); White Blood Count 6.2 10^3/uL (4.0-10.0)
[2019-12-16 05:26] LABS: Magnesium 1.9 mg/dL (1.7-2.3)
[2019-12-16 05:27] LABS: Alanine Aminotransferase 11 U/L (0-41); Albumin Level 3.7 g/dL (3.5-5.2); Alkaline Phosphatase 41 IU/L (40-130); Aspartate Amino Transferase 16 U/L (0-40); Blood Urea Nitrogen 15 mg/dL (8-23); Calcium 9.6 mg/dL (8.5-10.5); Carbon Dioxide 24 mmol/L (22-29); Chloride 105 mmol/L (98-107); Glucose 98 mg/dL (65-115); Osmolality Calculated 282 mOsm/kg (285-295); Sodium 138 mmol/L (136-145); Total Bilirubin 0.3 mg/dL (0.15-1.2); Total Protein 7.7 g/dL (6.6-8.7)
--- NOTE | 2019-12-16 05:35 | PC.NURSE ---
PT HAD ANOTHER CHLORHEXIDINE SHOWER. PT DENIES PAIN AT THIS TIME. WILL CONTINUE TO MONITOR.
--- NOTE | 2019-12-16 06:17 | ANES.PREANE2 ---
Pre-Anesthetic Assessment Pre-Anesthetic Assessment: Height/Weight: Height 1.75 m Weight 68.991 kg Temp Pulse Resp BP Pulse Ox 98.3 F 56 L 15 138/82 98 12/16/19 04:00 12/16/19 04:00 12/16/19 04:00 12/16/19 04:00 12/16/19 04:00 Preop Diagnosis: Carotid Stenosis Proposed Procedure: Operation Date: 12/15/19 07:00 Proposed Procedures p Carotid Endarterectomy(Left) - Pradip Schwarz MD Operation Date: 12/16/19 07:00 Proposed Procedures p Carotid Endarterectomy(Left) - Pradip Schwarz MD Familial anesthetic complications: None Was Beta Vikram taken within 24 hours: Yes Last intake: NPO > 8 hrs Social: Social History: No alcohol and No tobacco Exam: Pre-Anes Outpt Exam: alert, oriented x 3, clear to auscultation bilaterally and regular rate & rhythm Airway: Cervical ROM: WNL MP: 4 Dentition: Chipped and Other (missing) Pulmonary: Pulmonary: [place] CV/HEM: CV/HEM: Angina (Unstable), CAD (2018 angio --> R coronary w/ 60 - 70% stenosis, no other abnormalities) and HTN Comments: Negative sestaimibi stress test during admission; perfusion test w/ small area of scarring, echo w/ Ef of 60% no other abnormalities and EKG showing Sinus Bradycardia Metabolic: Metabolic: Hyperlipidemia Neuropsych: Neuropsych: Syncope and TIA Comments: DEEPIKA 63% stenosis LICA 84% stenosis Small R vertebral artery Anesthetic Plan: ASA status: 3 Anesthesia: General Risk of > 500 ml blood loss (7ml/kg in children): No Meds/Allergies Current Medications: Current Medications Generic Name Dose Route Start Last Admin Trade Name Freq PRN Reason Stop Dose Admin Acetaminophen 650 mg 12/12/19 16:49 12/12/19 20:09 Tylenol PO 650 mg Q6H PRN Administration Mild/Mod Pain Or Temp >/= 101 Amlodipine Besylat e 5 mg 12/15/19 10:08 12/15/19 10:22 Norvasc PO 5 mg DAILY DASHA Administration Aspirin 81 mg 12/13/19 09:00 12/15/19 09:27 Aspirin Ec PO 81 mg DAILY DASHA Administration Atorvastatin Calci um 80 mg 12/12/19 14:50 12/15/19 21:12 Lipitor PO 80 mg BEDTIME [facility] Administration Chlorhexidine Gluc amari 1 applic 12/15/19 13:46 12/15/19 15:00 Betasept TOPICAL 1 applic PRN [facility] Administration Levofloxacin 500 mg 12/15/19 06:00 12/15/19 06:48 Levaquin PO 500 mg DAILY@0600 [facility] Administration Protocol Metoprolol Succina te 12.5 mg 12/13/19 12:25 12/15/19 09:34 Toprol Xl PO 12.5 mg DAILY [facility] Administration Mupirocin 1 applic 12/15/19 18:00 12/15/19 17:37 Bactroban NASAL Not Given BID [facility] Pantoprazole Sodiu m 40 mg 12/13/19 09:00 12/15/19 09:27 Protonix PO 40 mg DAILY [facility] Administration Additional Medication Information: Current Medications Acetaminophen (Tylenol) 650 mg PO Q6H PRN PRN Reason: Mild/Mod Pain Or Temp >/= 101 Last Admin: 12/12/19 20:09 Dose: 650 mg Documented by: Aminophylline (Aminophylline) 25 mg IVP Q2M PRN PRN Reason: see dose instructions Stop: 12/16/19 07:40 Aspirin (Aspirin Ec) 81 mg PO DAILY [facility] Last Admin: 12/14/19 09:20 Dose: 81 mg Documented by: Atorvastatin Calcium (Lipitor) 80 mg PO BEDTIME [facility] Last Admin: 12/14/19 20:56 Dose: 80 mg Documented by: Bisacodyl (Dulcolax) 10 mg PO DAILY PRN PRN Reason: CONSTIPATION Enoxaparin Sodium (Lovenox) 40 mg SUBCUT Q24H [facility] Last Admin: 12/14/19 18:09 Dose: 40 mg Documented by: Levofloxacin (Levaquin) 500 mg PO DAILY@0600 [facility]; Protocol Last Admin: 12/15/19 06:48 Dose: 500 mg Documented by: Metoprolol Succinate (Toprol Xl) 12.5 mg PO DAILY [facility] Last Admin: 12/14/19 09:20 Dose: 12.5 mg Documented by: Nitroglycerin (Nitrostat) 0.4 mg SUBLINGUAL Q5M PRN PRN Reason: CHEST PAIN Stop: 12/16/19 07:40 Ondansetron HCl (Zofran) 4 mg IVP Q8H PRN PRN Reason: vomiting, or N/V if npo Ondansetron HCl (Zofran) 4 mg IVP Q2M PRN PRN Reason: NAUSEA Pantoprazole Sodium (Protonix) 40 mg PO DAILY DASHA Last Admin: 12/14/19 09:20 Dose: 40 mg Documented by: PFSH Anesthesia PFS: Medical History (Updated 12/15/19 @ 17:12 by Ethan Vizcarra MD) Atherosclerotic heart disease of [place] coronary artery without angina pectoris Benign essential hypertension with target blood pressure below 140/90 BPH (benign prostatic hyperplasia) CAD (coronary artery disease) Carotid stenosis, bilateral Dyslipidemia GERD (gastroesophageal reflux disease) Hiatal hernia HTN (hypertension) Surgical History H/O arthroscopy of knee H/O arthroscopy of shoulder History of hip replacement, total Hx of inguinal hernia surgery Data Anesthesia CBC & Chem 7: 12/16/19 04:10 12/16/19 04:10 Other Labs: Laboratory Results - last 48 hr 12/14/19 12/15/19 12/15/19 10:20 04:13 04:13 WBC 5.8 RBC 3.94 L Hgb 10.7 L Hct 34.3 L MCV 87.1 MCH 27.2 L MCHC 31.2 RDW 16.1 H Plt Count 306 MPV 10.6 H Neut % (Auto) 60.1 Lymph % (Auto) 25.9 [place] % (Auto) 11.3 Eos % (Auto) 2.1 Baso % (Auto) 0.3 Neut # (Auto) 3.50 Lymph # (Auto) 1.5 [place] # (Auto) 0.7 Eos # (Auto) 0.1 Baso # (Auto) 0.0 Nucleated RBC % (auto) 0 Nucleated RBCs # 0.0 Sodium 136 Potassium 4.0 Chloride 107 Carbon Dioxide 23 Anion Gap 10.0 BUN 16 Creatinine 0.9 GFR Calculation Not Reportable Glucose 99 Calculated Osmolality 278 L Calcium 9.9 Phosphorus Magnesium Total Bilirubin 0.2 AST 18 ALT 8 Alkaline Phosphatase 41 Total Protein 6.6 Albumin 3.3 L Globulin 3.3 Urine Color Yellow Urine Appearance Cloudy Urine pH 5 Ur Specific [place] 1.015 Urine Protein Neg Urine Glucose (UA) Norm Urine Ketones Negative Urine Blood 3+ H Urine Nitrate Positive H Urine Bilirubin Neg Urine Urobilinogen Norm Ur Leukocyte Esterase 2+ H Urine RBC 5-10 H Urine WBC 25-40 H Ur Squamous Epith Cells Rare Amorphous Sediment Not Reportable Urine Bacteria 4+ H Blood Type Rho(D) Type Antibody Screen Crossmatch 12/15/19 12/15/19 12/16/19 14:00 17:50 04:10 WBC 6.2 RBC 4.35 Hgb 11.5 L Hct 36.9 L MCV 84.8 MCH 26.4 L MCHC 31.2 RDW 16.0 H Plt Count 355 MPV 10.3 Neut % (Auto) 59.2 Lymph % (Auto) 27.2 [place] % (Auto) 10.8 Eos % (Auto) 1.8 Baso % (Auto) 0.5 Neut # (Auto) 3.66 Lymph # (Auto) 1.7 [place] # (Auto) 0.7 Eos # (Auto) 0.1 Baso # (Auto) 0.0 Nucleated RBC % (auto) 0 Nucleated RBCs # 0.0 Sodium Potassium Chloride Carbon Dioxide Anion Gap BUN Creatinine GFR Calculation Glucose Calculated Osmolality Calcium Phosphorus Magnesium Total Bilirubin AST ALT Alkaline Phosphatase Total Protein Albumin Globulin Urine Color Yellow Urine Appearance Clear Urine pH 6 Ur Specific [place] 1.010 Urine Protein Neg Urine Glucose (UA) Norm Urine Ketones Negative Urine Blood 3+ H Urine Nitrate Negative Urine Bilirubin Neg Urine Urobilinogen Norm Ur Leukocyte Esterase 1+ H Urine RBC 5-10 H Urine WBC 15-25 H Ur Squamous Epith Cells 5-10 H Amorphous Sediment Not Reportable Urine Bacteria 2+ H Blood Type O Positive Rho(D) Type Positive Antibody Screen Negative Crossmatch See Detail 12/16/19 12/16/19 04:10 04:10 WBC RBC Hgb Hct MCV MCH MCHC RDW Plt Count MPV Neut % (Auto) Lymph % (Auto) [place] % (Auto) Eos % (Auto) Baso % (Auto) Neut # (Auto) Lymph # (Auto) [place] # (Auto) Eos # (Auto) Baso # (Auto) Nucleated RBC % (auto) Nucleated RBCs # Sodium 138 Potassium 4.0 Chloride 105 Carbon Dioxide 24 Anion Gap 13.0 BUN 15 Creatinine 0.9 GFR Calculation Not Reportable Glucose 98 Calculated Osmolality 282 L Calcium 9.6 Phosphorus 3.0 Magnesium 1.9 Total Bilirubin 0.3 AST 16 ALT 11 Alkaline Phosphatase 41 Total Protein 7.7 Albumin 3.7 Globulin 4.0 Urine Color Urine Appearance Urine pH Ur Specific [place] Urine Protein Urine Glucose (UA) Urine Ketones Urine Blood Urine Nitrate Urine Bilirubin Urine Urobilinogen Ur Leukocyte Esterase Urine RBC Urine WBC Ur Squamous Epith Cells Amorphous Sediment Urine Bacteria Blood Type Rho(D) Type Antibody Screen Crossmatch Micro: Microbiology 12/13/19 10:10 Urine Culture - Final Urine,Clean Catch Enterobacter aerogenes 12/12/19 12:15 Urine Culture - Final Urine,Clean Catch Enterobacter aerogenes Cardiac Studies: No Data to Display
--- NOTE | 2019-12-16 06:25 | PC.NURSE ---
SURGERY COME AND GOT PT. PT TO BE TRANSFERRED TO ICU10 AFTER. PHONE AND GLASSES TO BE TAKEN TO ICU.
--- NOTE | 2019-12-16 06:27 | P.PN_ITS ---
Subjective Subjective: Interval history: Sitting up on the side of the bed this morning. States he slept about 5 hours last night. Good spirits. Eager to proceed with plans for surgery this morning. Remains asymptomatic from his UTI with Enterobacter noted, sensitive to Levaquin. Vitals/I&O/Wt Last Vital Signs Temp 98.3 F 12/16/19 04:00 Pulse 56 L 12/16/19 04:00 Resp 15 12/16/19 04:00 BP 138/82 12/16/19 04:00 Pulse Ox 98 12/16/19 04:00 12/15/19 12/15/19 12/16/19 14:59 22:59 06:59 Intake Total 240 / 240 360 / 600 250 / 850 Output Total 300 / 300 400 / 700 Balance 240 / 240 60 / 300 -150 / 150 Weight last 48 hrs Weight 152 lb 1.6 oz Physical Exam Const: COMMON NORMALS: patient oriented x3 Resp: COMMON NORMALS: normal respiratory effort and clear to auscultation bilaterally AUSCULTATION: clear to auscultation bilaterally Cardio: COMMON NORMALS: regular rate, regular rhythm, S1 normal heart sound present, No gallops present (Cardio) and No rub (Cardio) RATE: regular rate RHYTHM: regular rhythm HEART SOUNDS: S1 normal heart sound present Extremity: COMMON NORMALS: no clubbing, cyanosis or edema Neuro: COMMON NORMALS: patient oriented x3, moves all extremities, no focal motor deficits and no sensory deficits noted Data : 12/16/19 04:10 12/16/19 04:10 Micro: Microbiology 12/13/19 10:10 Urine Culture - Final Urine,Clean Catch Enterobacter aerogenes 12/12/19 12:15 Urine Culture - Final Urine,Clean Catch Enterobacter aerogenes A&P Assessment and plan (1) Carotid stenosis, bilateral: High-grade left ICA stenosis with recent episode of near syncope and reported TIA. Negative nuclear stress testing as reported from yesterday. Will plan to proceed with left carotid endarterectomy today. Details and risk of surgery again carefully discussed. All questions answered. He is eager to proceed. 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
[2019-12-16] MEDS: sodium chloride 0.9% 1,000 ML 30 ML IV (06:43)
--- NOTE | 2019-12-16 08:07 | SUR.OPER ---
Called daughter and updated her on surgical progress.
[2019-12-16] MEDS: levofloxacin-dextrose 5 % 500 MG/100 ML PREMIX 100 MG IV (08:09)
--- NOTE | 2019-12-16 08:12 | PC.OT ---
OT tx withheld at this time as pt off the floor for surgical procedure. Will await further instruction regarding activity level post surgery.
[2019-12-16] MEDS: vancomycin 1,000 MG SDV 1000 MG XX (08:13)
[2019-12-16] MEDS: heparin,porcine 1,000 unit/mL INJ 1 mL 1000 UNIT IRRIGATION (08:14)
--- NOTE | 2019-12-16 09:05 | SUR.OPER ---
Called and updated daughter of surgical progress.
[2019-12-16] MEDS: lidocaine 1% INJ 20 mL SUBCUT (10:00)
--- NOTE | 2019-12-16 10:21 | SUR.OPER ---
Called daughter and notified her of surgical progress.
--- NOTE | 2019-12-16 11:05 | P.OP_ITS ---
Operative Report Date of procedure: December 16, 2019 Pre-op Diagnosis: Carotid Stenosis/history of near syncope and TIA Post-op diagnosis: same Procedure Done: Left carotid endarterectomy with patch angioplasty Implants: Hemashield patch Specimens removed/disposition: Left carotid artery plaque Surgeon: Pradip Schwarz Anesthesia: General Complications: None: Answering questions appropriately and moving all extremities spontaneously and to command immediately postop prior to leaving operating theater. Findings: Calcific yet quite friable extensive left carotid plaque at bifurcation Low hypoglossal nerve crossing at the level of carotid bifurcation Condition: stable Disposition: ICU Brief History: Mr. Hannon is a 74-year-old gentleman admitted for near syncope and what was described as probable TIA with speech difficulties as well as right-sided hemiparesis. Prior history of coronary disease. Cardiology evaluation included nuclear stress testing which was negative for ongoing ischemia. It was recommended given his presentation, that carotid endarterectomy should be considered given an admitting CTA of the head which was normal but CTA of the neck revealed an 86% left ICA stenosis and greater than 60% right ICA stenosis. Rationale for surgery was carefully discussed. Details and risk frankly reviewed. Mr. Hannon is eager to proceed. A proper consents have been reviewed and signed. Procedure: Mr. Hannon was placed on the OR table and underwent general endotracheal anesthesia with a neurological monitoring endotracheal tube as well as placement of a right radial arterial line. Bihemispheric monitoring pads were placed as well as grounding and sensing pads for nerve conduction evaluation during neck dissection. He received 10 mg of Decadron after anesthesia induction. The entire upper chest and left neck were sterilely prepped and draped. Incision was made along the anterior border of the sternomastoid muscle and carried down to the platysma with cautery. Dissection from this point forward was carried out utilizing Metzenbaum scissors and limited use of bipolar cautery. The external jugular vein was dissected free and ligated as well as the facial vein which was ligated, oversewn, and divided. Dissection was continued down through the ansa cervicalis with preservation of major branches. Minor branches were divided if required to allow for adequate exposure. Nerve conduction evaluation was performed througho ut the dissection for protection of the recurrent nerve. We subsequently reached the common carotid artery. Dissection was then continued proximally to distally across the bifurcation. The hypoglossal nerve was line quite low at the level of the bifurcation. This did make dissection challenging in this region as we proceeded further distally, particularly of the internal carotid artery. Vessel loops were placed around the common carotid artery, internal carotid artery, and external carotid artery. We limited retraction of the hypoglossal nerve as much as possible, though some elevation was required to continue dissection distally. The internal carotid artery disease went fairly high and extended well above the level of the mandibular angle. This did require some traction in this reg ion. Care was taken during this dissection to avoid injury to the vagus nerve posteriorly. Mr. Hannon was then heparinized with 10,000 units. The systolic blood pressure was elevated to 160. Following this, in a rapid sequenced fashion, the distal internal carotid artery was clamped followed by clamping of the common carotid artery and external carotid artery. #11 scalpel blade was used to open the common carotid artery proximally. Garcia scissors were then utilized to extend this arteriotomy across the distal common carotid artery and ulcerated very stenotic and friable plaque and continue this further at the bifurcation across the calcific plaque in the internal carotid artery until we had reached normal intima, which was fairly high. The internal carotid artery clamp was briefly flashed with evidence of brisk back bleeding, therefore we elected not to shunt. It should be noted that bi-hemispheric oximetry was recorded throughout the procedure. Next, a freer elevator was utilized to create a dissection plane the plaque from intima at the proximal portion of the arteriotomy. This was then divided with a #11 scalpel blade. This plaque was then further dissected along the intimal plane proximally to distally across the bifurcation. Utilizing an everting technique, plaque was removed from the external carotid artery with brisk flow. This plaque was then dissected free up the internal carotid artery to a feathered edge. Heparinized saline solution was utilized to remove any loose debris. Next, a Hemashield patch was brought into the field and sewn into position utilizing a running 6-0 Prolene suture, thereby completing our patch angioplasty. At the completion of the patch, the external carotid artery was opened followed by the common carotid artery and finally the internal carotid artery, thereby reestablishing cerebral flow. Areas of extravasation were repaired with 6-0 Prolene suture. After 5 minutes, heparin was reversed with protamine. Hemostasis was confirmed. The wound was irrigated with antibiotic solution. A small, flat, Rajat-Funes drain was placed in the wound and connected to bulb suction. Sponge and needle count was correct. The wound was then closed in 2 layers of 3-0 Vicryl suture. Skin was reapproximated in a subcuticular manner with 4-0 Monocryl suture. A pressure dressing was then applied. Mr. Hannon was awakened from anesthesia and spontaneous movement of all extremities as well as movement to command was noted. He also answered questions appropriately. He was then transferred to the ICU in stable condition. I did mental health counselor with his daughter, Breezy, at completion of the procedure. Mr. Hannon will be monitored in the ICU for the next 24 hours.
[2019-12-16] MEDS: lactated ringers 1,000 ML 100 ML IV ×2 (11:56→20:58)
--- NOTE | 2019-12-16 11:57 | PC.NURSE ---
ICU 10 at 1110 Patient to room via bed, accompanied by OR staff, anesthesia, Dr. Schwarz, and ICU staff. Patient AAOx3 (not time). Moves all extremities with equal strength, pupils equal, tongue midline, speech without aphasia/dysarthria. Left carotid dressing c/d/i, AZEB drain intact and draining. Patient drowsy but alert. Hypotensive, Dr. Schwarz aware.
--- NOTE | 2019-12-16 14:15 | P.PN_ITS ---
Subjective Subjective: Interval history: This afternoon, patient was examined in the ICU, after his surgical procedure, he he is states that he is doing fine, still a bit under the effect of anesthesia, he is happy with his surgical procedure, that was done soon, no paresthesias, slurring of his speech, moving all extremities, no weakness, no chest pain, no shortness of breath Medications: Reviewed: Yes Medication Review Details: Current Medications Acetaminophen (Tylenol) 650 mg PO Q6H PRN PRN Reason: Mild/Mod Pain Or Temp >/= 101 Last Admin: 12/12/19 20:09 Dose: 650 mg Documented by: Aminophylline (Aminophylline) 25 mg IVP Q2M PRN PRN Reason: see dose instructions Stop: 12/16/19 07:40 Aspirin (Aspirin Ec) 81 mg PO DAILY [facility] Last Admin: 12/14/19 09:20 Dose: 81 mg Documented by: Atorvastatin Calcium (Lipitor) 80 mg PO BEDTIME [facility] Last Admin: 12/14/19 20:56 Dose: 80 mg Documented by: Bisacodyl (Dulcolax) 10 mg PO DAILY PRN PRN Reason: CONSTIPATION Enoxaparin Sodium (Lovenox) 40 mg SUBCUT Q24H [facility] Last Admin: 12/14/19 18:09 Dose: 40 mg Documented by: Levofloxacin (Levaquin) 500 mg PO DAILY@0600 [facility]; Protocol Last Admin: 12/15/19 06:48 Dose: 500 mg Documented by: Metoprolol Succinate (Toprol Xl) 12.5 mg PO DAILY [facility] Last Admin: 12/14/19 09:20 Dose: 12.5 mg Documented by: Nitroglycerin (Nitrostat) 0.4 mg SUBLINGUAL Q5M PRN PRN Reason: CHEST PAIN Stop: 12/16/19 07:40 Ondansetron HCl (Zofran) 4 mg IVP Q8H PRN PRN Reason: vomiting, or N/V if npo Ondansetron HCl (Zofran) 4 mg IVP Q2M PRN PRN Reason: NAUSEA Pantoprazole Sodium (Protonix) 40 mg PO DAILY [facility] Last Admin: 12/14/19 09:20 Dose: 40 mg Documented by: Vitals/I&O/Wt Last Vital Signs Temp 97.8 F 12/16/19 12:30 Pulse 67 12/16/19 13:03 Resp 16 12/16/19 13:03 BP 95/49 12/16/19 12:30 Pulse Ox 96 12/16/19 13:03 12/15/19 12/16/19 12/16/19 22:59 06:59 14:59 Intake Total 360 / 600 250 / 850 2950 / 2950 Output Total 300 / 300 400 / 700 1850 / 1850 Balance 60 / 300 -150 / 150 1100 / 1100 Weight last 48 hrs Weight 68.991 kg Physical Exam Const: COMMON NORMALS: no acute distress and patient oriented x3 HENMT: COMMON NORMALS: normocephalic HEAD & SCALP: normocephalic Neck/C-Spine: COMMON NORMALS: no JVD Resp: COMMON NORMALS: normal respiratory effort, No retractions, No use of accessory muscles and clear to auscultation bilaterally AUSCULTATION: clear to auscultation bilaterally Cardio: COMMON NORMALS: no JVD, regular rate, regular rhythm, S1 normal heart sound present and S2 normal heart sound present RATE: regular rate RHYTHM: regular rhythm HEART SOUNDS: S1 normal heart sound present and S2 normal heart sound present GI: COMMON NORMALS: Normal to inspection, nondistended, normoactive bowel sounds present, Soft to palpation, non-tender, No hepatosplenomegaly present, no masses and no bruits PALPATION: Yes Soft to palpation and Yes No hepatosplenomegaly present Extremity: COMMON NORMALS: capillary refill normal, no clubbing, cyanosis or edema, no calf tenderness and no pedal edema Neuro: COMMON NORMALS: patient oriented x3 Psych: COMMON NORMALS: mental status grossly normal Urinary Catheter Management^: Mathias: Cath Placed During This Visit: yes Urinary Catheter Date of Insertion: 12/16/19 Urinary Catheter Time of Insertion: 07:30 Data : 12/16/19 04:10 12/16/19 04:10 A&P Assessment and plan (1) Syncope: Status: Acute Qualifiers: Syncope type: unspecified Qualified Code(s): R55 - Syncope and collapse (2) Transient cerebral ischemia: Status: Acute Qualifiers: Transient cerebral ischemia type: unspecified Qualified Code(s): G45.9 - Transient cerebral ischemic attack, unspecified (3) Carotid stenosis, bilateral: Status: Acute (4) Hypotension: Status: Acute Qualifiers: Hypotension type: unspecified hypotension type Qualified Code(s): I95.9 - Hypotension, unspecified (5) CAD (coronary artery disease): Status: Acute Qualifiers: Coronary Disease-Associated Artery/Lesion type: [place] artery [place] vs. transplanted heart: [place] heart Associated angina: without angina Qualified Code(s): I25.10 - Atherosclerotic heart disease of [place] coronary artery without angina pectoris (6) HTN (hypertension): Status: Acute Qualifiers: Hypertension type: essential hypertension Qualified Code(s): I10 - Essential (primary) hypertension (7) Dyslipidemia: Status: Acute Additional A&P Information 74-year-old gentleman past medical history of nonobstructive CAD presented with recurrent episodes of presyncope while he is trying to help his mostly brought upon exertion and lifting heavy weight presented to the ER today. Exertional presyncope: Likely secondary to TIA Nonobstructive CAD: Follows with Dr. Vizcarra as an outpatient. His last coronary angiogram in 2017 was noted to have minor irregularities in left main LAD and circumflex and proximal RCA with 40 to 50% and distal RCA with 60 to 70% stenosis. FFR was 0.9. Stress test: 1. Myocardial perfusion imaging revealing a small area of persistent decreased tracer uptake in the inferior wall region, suggestive of myocardial scarring versus attenuation artifacts. 2. Normal LV ejection fraction of 61%. 3. LV wall motion analysis revealing no gross wall motion normalities. 4. Normal LV volume. Echo: -Difficult study, left ventricular ejection fraction 60 to 65%, no regional wall motion abnormalities -For now we will continue with aspirin and statin. TIA: Secondary to left carotid artery stenosis. CT head negative for any active stroke. Left carotid artery stenosis, with associated TIA symptoms -Status post left carotid endarterectomy with patch angioplasty by Dr. Schwarz postop day 0 -Currently in the ICU -Arterial line in place -Left neck AZEB drain in place -On telemetry monitoring, neuro checks Hypertension: Continue metoprolol, amlodipine. Cystitis: Denies of having any dysuria. Urine culture showing Enterobacter aerogenes, since sensitive to Levaquin, started on levofloxacin. We will continue the same for now. Will have to monitor kidney functions. Full code. Cardiac diet. 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 transplanted heart: [place] heart Associated angina: without angina HTN (hypertension) I10 Hypertension type: essential hypertension Dyslipidemia E78.5
[2019-12-16] MEDS: aspirin 81 mg EC Tablet PO (14:32)
--- NOTE | 2019-12-16 18:25 | PC.NURSE ---
art line removed, covered with pressure dressing. Mathias removed. Patient to room air, sat 99%.
--- NOTE | 2019-12-16 19:24 | PC.NURSE ---
Patient is bradycardic with heart rate 40s-50s and hypotensive with BP 80s/40s. Otherwise patient is alert and oriented and in no apparent distress. Dressing is intact to left neck with no drainage to site and AZEB drain is in place with minimal drainage. Dr. Schwarz notified and ordered normal saline bolus of 250 mLs ordered and may repeat x 1. Will continue to monitor.
[2019-12-16] MEDS: sodium chloride 0.9% 250 ML IV ×2 (19:51→20:58)
--- NOTE | 2019-12-16 20:18 | P.ANESUD_ITS ---
Pre-Anesthetic Update Pre-Anesthetic Assessment: Date of Surgery/Procedure: 12/16/19 Preop Licha gnosis: Carotid Stenosis/history of near syncope and TIA Proposed Procedure: Operation Date: 12/15/19 07:00 Proposed Procedures p Carotid Endarterectomy(Left) - Pradip Schwarz MD Operation Date: 12/16/19 07:00 Proposed Procedures p Carotid Endarterectomy(Left) - Pradip Schwarz MD Any changes to Pre-Anesthetic Assessment?: No Last Intake: Intake Last Liquid Date 12/15/19 Last Liquid Time 20:00 Last Solid Date 12/15/19 Last Solid Time 20:00 Labs Last 48hrs: Laboratory Results - last 48 hr 12/15/19 12/15/19 12/15/19 04:13 04:13 14:00 WBC 5.8 RBC 3.94 L Hgb 10.7 L Hct 34.3 L MCV 87.1 MCH 27.2 L MCHC 31.2 RDW 16.1 H Plt Count 306 MPV 10.6 H Neut % (Auto) 60.1 Lymph % (Auto) 25.9 [place] % (Auto) 11.3 Eos % (Auto) 2.1 Baso % (Auto) 0.3 Neut # (Auto) 3.50 Lymph # (Auto) 1.5 [place] # (Auto) 0.7 Eos # (Auto) 0.1 Baso # (Auto) 0.0 Nucleated RBC % (a uto) 0 Nucleated RBCs # 0.0 Sodium 136 Potassium 4.0 Chloride 107 Carbon Dioxide 23 Anion Gap 10.0 BUN 16 Creatinine 0.9 GFR Calculation Not Reportable Glucose 99 Calculated Osmolal ity 278 L Calcium 9.9 Phosphorus Magnesium Total Bilirubin 0.2 AST 18 ALT 8 Alkaline Phosphata se 41 Total Protein 6.6 Albumin 3.3 L Globulin 3.3 Urine Color Yellow Urine Appearance Clear Urine pH 6 Ur Specific Gravit y 1.010 Urine Protein Neg Urine Glucose (UA) Norm Urine Ketones Negative Urine Blood 3+ H Urine Nitrate Negative Urine Bilirubin Neg Urine Urobilinogen Norm Ur Leukocyte [place]ora a[place] 1+ H Urine RBC 5-10 H Urine WBC 15-25 H Ur Squamous Epith Cells 5-10 H Amorphous Sediment Not Reportable Urine Bacteria 2+ H Blood Type Rho(D) Type Antibody Screen Crossmatch 12/15/19 12/16/19 12/16/19 17:50 04:10 04:10 WBC 6.2 RBC 4.35 Hgb 11.5 L Hct 36.9 L MCV 84.8 MCH 26.4 L MCHC 31.2 RDW 16.0 H Plt Count 355 MPV 10.3 Neut % (Auto) 59.2 Lymph % (Auto) 27.2 [place] % (Auto) 10.8 Eos % (Auto) 1.8 Baso % (Auto) 0.5 Neut # (Auto) 3.66 Lymph # (Auto) 1.7 [place] # (Auto) 0.7 Eos # (Auto) 0.1 Baso # (Auto) 0.0 Nucleated RBC % (a uto) 0 Nucleated RBCs # 0.0 Sodium 138 Potassium 4.0 Chloride 105 Carbon Dioxide 24 Anion Gap 13.0 BUN 15 Creatinine 0.9 GFR Calculation Not Reportable Glucose 98 Calculated Osmolal ity 282 L Calcium 9.6 Phosphorus Magnesium Total Bilirubin 0.3 AST 16 ALT 11 Alkaline Phosphata se 41 Total Protein 7.7 Albumin 3.7 Globulin 4.0 Urine Color Urine Appearance Urine pH Ur Specific Gravit y Urine Protein Urine Glucose (UA) Urine Ketones Urine Blood Urine Nitrate Urine Bilirubin Urine Urobilinogen Ur Leukocyte Dora ase Urine RBC Urine WBC Ur Squamous Epith Cells Amorphous Sediment Urine Bacteria Blood Type O Positive Rho(D) Type Positive Antibody Screen Negative Crossmatch See Detail 12/16/19 04:10 WBC RBC Hgb Hct MCV MCH MCHC RDW Plt Count MPV Neut % (Auto) Lymph % (Auto) [place] % (Auto) Eos % (Auto) Baso % (Auto) Neut # (Auto) Lymph # (Auto) [place] # (Auto) Eos # (Auto) Baso # (Auto) Nucleated RBC % (a uto) Nucleated RBCs # Sodium Potassium Chloride Carbon Dioxide Anion Gap BUN Creatinine GFR Calculation Glucose Calculated Osmolal ity Calcium Phosphorus 3.0 Magnesium 1.9 Total Bilirubin AST ALT Alkaline Phosphata se Total Protein Albumin Globulin Urine Color Urine Appearance Urine pH Ur Specific Gravit y Urine Protein Urine Glucose (UA) Urine Ketones Urine Blood Urine Nitrate Urine Bilirubin Urine Urobilinogen Ur Leukocyte Dora ase Urine RBC Urine WBC Ur Squamous Epith Cells Amorphous Sediment Urine Bacteria Blood Type Rho(D) Type Antibody Screen Crossmatch Vitals: Temperature 97.8 F 12/16/19 12:30 Temperature Source Oral 12/16/19 12:30 Pulse Rate 43 L 12/16/19 18:15 Pulse Rhythm 12/16/19 12:00 Pulse Strength 3+ Normal 12/16/19 12:00 Respiratory Rate 15 12/16/19 18:15 Respiratory Effort Non-Labored 12/16/19 12:00 Respiratory Depth Normal 12/16/19 12:00 Respiratory Patter n 12/12/19 14:00 Blood Pressure 100/52 12/16/19 18:15 Blood Pressure Syl n 68 12/16/19 18:15 Blood Pressure Pos ition Semi Fowlers 12/16/19 18:15 Pulse Oximetry 100 12/16/19 18:15 Oxygen Delivery Me thod 12/16/19 18:15 Oxygen Flow Rate 2 12/16/19 18:00 Sepsis Recent Feve r Within 48 Hours No 12/12/19 10:53 Sepsis New/Unexpla ined Change in Men twan Status No 12/12/19 10:53 Exam: Pre-Anes Outpt Exam: alert, oriented x 3, clear to auscultation bilaterally and regular rate & rhythm Cardiac Studies: No Data to Display
--- NOTE | 2019-12-16 20:19 | ANES.PROC ---
Anesthesia Procedures Procedure/Date: 12/16/19 Epidural: Time Out Performed: Yes Consents Signed: Procedure Consent Consent: requested by attending/covering physician, from patient, risks and benefits reviewed and patient agrees to proceed Lumbar Level: L3-L4 Epidural position: sitting Epidural procedure: sterile prep of area, 1% lidocaine to numb the area, 18 g needle, neg for paresthesia, test dose given, 1.5% xylocaine 1:200k epi, 0.2% Ropivacaine bolus ml, placed PCEA, no systemic response, sterile dressing applied, L.U.D. no apparent complications and 0.2% Ropiavacaine @ mls/hr Additional Comments: Ropiv 0.2% 6cc and Fent 100mcg bolus. TISHA at 6cm. First epidural not giving adequate pain relief. epidural redone and Ropiv 0.2% 6 cc given with pain relief. Epid infusion started at 13cc/hour
[2019-12-16] MEDS: atorvastatin 40 mg Tablet 80 MG PO (20:57)
--- NOTE | 2019-12-16 23:41 | PM.PN ---
Subjective Subjective: Interval history: The patient underwent left carotid endarterectomy today. Currently he is extubated, awake and oriented x2. Denies any specific complaints. The blood pressure is running slightly on the low side. No specific complaints. No bleeding complications. Medications: Reviewed: Yes Medication Review Details: Current Medications Hydrocodone Bitart/Acetaminophen ([place] 5-325 Mg) 1 tab PO Q4H PRN PRN Reason: MODERATE PAIN Amlodipine Besylate (Norvasc) 5 mg PO DAILY [facility] Last Admin: 12/15/19 10:22 Dose: 5 mg Documented by: Aspirin (Aspirin Ec) 81 mg PO DAILY [facility] Last Admin: 12/15/19 09:27 Dose: 81 mg Documented by: Aspirin (Aspirin Chewable) 81 mg PO DAILY [facility] Atorvastatin Calcium (Lipitor) 80 mg PO BEDTIME [facility] Last Admin: 12/16/19 20:57 Dose: 80 mg Documented by: Bisacodyl (Dulcolax) 10 mg PO DAILY PRN PRN Reason: CONSTIPATION Lactated Ringer's (Lactated Ringers) 1,000 mls @ 100 mls/hr IV .Q10H [facility] Last Admin: 12/16/19 20:58 Dose: 100 mls/hr Documented by: Ketorolac Tromethamine (Toradol) 30 mg IVP Q6H PRN PRN Reason: MODERATE PAIN Stop: 12/21/19 11:27 Levofloxacin (Levaquin) 500 mg PO DAILY@0600 [facility]; Protocol Last Admin: 12/16/19 11:47 Dose: Not Given Documented by: Metoprolol Succinate (Toprol Xl) 12.5 mg PO DAILY [facility] Last Admin: 12/15/19 09:34 Dose: 12.5 mg Documented by: Morphine Sulfate (Morphine) 2 mg IVP Q1H PRN PRN Reason: SEVERE PAIN Mupirocin (Bactroban) 1 applic NASAL BID [facility] Last Admin: 12/16/19 17:42 Dose: Not Given Documented by: Ondansetron HCl (Zofran) 4 mg IVP Q8H PRN PRN Reason: vomiting, or N/V if npo Pantoprazole Sodium (Protonix) 40 mg PO DAILY [facility] Last Admin: 12/15/19 09:27 Dose: 40 mg Documented by: Tamsulosin HCl (Flomax) 0.4 mg PO DAILY [facility] Vitals/I&O/Wt Last Vital Signs Temp 97.8 F 12/16/19 19:00 Pulse 40 L 12/16/19 21:30 Resp 14 12/16/19 21:30 BP 85/48 12/16/19 21:30 Pulse Ox 95 12/16/19 21:30 12/16/19 12/16/19 12/17/19 14:59 22:59 06:59 Intake Total 2950 / 2950 1343.333 / 4293.333 Output Total 1850 / 1850 301 / 2151 Balance 1100 / 1100 1042.333 / 2142.333 Weight last 48 hrs Weight 152 lb 1 oz Weight 152 lb 1.6 oz Physical Exam Narrative: EXAM NARRATIVE: GENERAL: The patient is alert and oriented times three. Not in any acute distress. HEENT: No significant pallor, icterus or lymphadenopathy.Oral cavity: There are no mucous membrane lesions. NECK: Trachea appears to be central. No masses noted. No JVD or thyromegaly appreciated. The endarterectomy site appears to have no hematoma or bleeding RESPIRATORY: Chest is symmetrical. No intercostals muscle retraction or any accessory muscle activation. There is no chest wall tenderness. Breath sounds are heard bilaterally. No rales or rhonchi heard. No evidence of any consolidation. BREASTS: Deferred. HEART: The heart sounds are normal. No S3 or S4. No significant murmurs. No pericardial rub ABDOMEN: No vessel pulsations or distention. No tenderness. No organomegaly appreciated. Bowel sounds are normally heard. : Deferred. RECTAL: Deferred. LYMPHATIC: No lymphadenopathy noted in the neck or groin. EXTREMITIES: No edema or cyanosis. No clubbing. Peripheral pulses are palpated in fairly good volume and amplitude MUSCULOSKELETAL: No acute joint deformities or swelling SKIN: There are no significant rashes or ecchymosis NEUROPSYCHIATRIC: The patient is alert and oriented x3. Appears to be in a good mood. No tremors or rigidity noted. Urinary Catheter Management^: Mathias: Cath Placed During This Visit: yes, but has since been removed by the nurse Reason for Continuing Indwelling Catheter: Accurate Measurement of Urinary Output in Critically Ill Patients Urinary Catheter Date of Insertion: 12/16/19 Urinary Catheter Time of Insertion: 07:30 Date Urinary Catheter Removed: 12/16/19 Time Urinary Catheter Discontinued: 18:15 Data : 12/17/19 04:31 12/17/19 04:31 Other Labs: Laboratory Last Values WBC 6.2 10^3/uL (4.0-10.0) 12/16/19 04:10 RBC 4.35 10^6/uL (4.1-5.3) 12/16/19 04:10 Hgb 11.5 g/dL (11.7-16.6) L 12/16/19 04:10 Hct 36.9 % (42.0-52.0) L 12/16/19 04:10 MCV 84.8 fL (80-94) 12/16/19 04:10 MCH 26.4 pg (28.0-34.0) L 12/16/19 04:10 MCHC 31.2 g/dL (30.0-36.0) 12/16/19 04:10 RDW 16.0 % (12.1-15.1) H 12/16/19 04:10 Plt Count 355 10^3/cmm (130-400) 12/16/19 04:10 MPV 10.3 fL (7.4-10.4) 12/16/19 04:10 Neut % (Auto) 59.2 % 12/16/19 04:10 Lymph % (Auto) 27.2 % 12/16/19 04:10 [place] % (Auto) 10.8 % 12/16/19 04:10 Eos % (Auto) 1.8 % 12/16/19 04:10 Baso % (Auto) 0.5 % 12/16/19 04:10 Neut # (Auto) 3.66 10^3/uL (1.8-7.7) 12/16/19 04:10 Lymph # (Auto) 1.7 10^3/uL (0.8-4.8) 12/16/19 04:10 [place] # (Auto) 0.7 10^3/uL (0.2-0.9) 12/16/19 04:10 Eos # (Auto) 0.1 10^3/uL (0.0-0.8) 12/16/19 04:10 Baso # (Auto) 0.0 10^3/uL (0.0-0.1) 12/16/19 04:10 Nucleated RBC % (auto) 0 % 12/16/19 04:10 Nucleated RBCs # 0.0 /100WBC 12/16/19 04:10 PT 13.50 SECONDS (12.1-14.9) 12/12/19 11:00 INR 1.00 (0.8-1.2) 12/12/19 11:00 APTT 29.9 SECONDS (23.9-36.7) 12/12/19 11:00 Sodium 138 mmol/L (136-145) 12/16/19 04:10 Potassium 4.0 mmol/L (3.5-5.1) 12/16/19 04:10 Chloride 105 mmol/L (98-107) 12/16/19 04:10 Carbon Dioxide 24 mmol/L (22-29) 12/16/19 04:10 Anion Gap 13.0 (5-19) 12/16/19 04:10 BUN 15 mg/dL (8-23) 12/16/19 04:10 Creatinine 0.9 mg/dL (0.7-1.2) 12/16/19 04:10 GFR Calculation Not Reportable 12/16/19 04:10 Glucose 98 mg/dL (65-115) 12/16/19 04:10 POC Glucose 90 mg/dL (70-110) 12/12/19 16:43 Estimat Average Glucose 114 12/13/19 05:07 Hemoglobin A1c 5.6 % (4.0-6.0) 12/13/19 05:07 Calculated Osmolality 282 mOsm/kg (285-295) L 12/16/19 04:10 Lactic Acid 2.1 mmol/L (0.5-2.2) 12/12/19 10:56 Lactic Acid (Sepsis) 1.0 mmol/L (0.5-2.2) 12/12/19 14:10 Calcium 9.6 mg/dL (8.5-10.5) 12/16/19 04:10 Phosphorus 3.0 mg/dL (2.5-4.5) 12/16/19 04:10 Magnesium 1.9 mg/dL (1.7-2.3) 12/16/19 04:10 Iron 83 ug/dL (59-158) 12/12/19 13:12 TIBC 267 mcg/dl 12/12/19 13:12 % Saturation 31.0 % (20-50) 12/12/19 13:12 Unsat Iron Binding 184 ug/dL (112-347) 12/12/19 13:12 Total Bilirubin 0.3 mg/dL (0.15-1.2) 12/16/19 04:10 AST 16 U/L (0-40) 12/16/19 04:10 ALT 11 U/L (0-41) 12/16/19 04:10 Alkaline Phosphatase 41 IU/L (40-130) 12/16/19 04:10 Troponin T Baseline 12 ng/L (0-15) 12/12/19 11:00 Troponin T 120 Minute 10.12 ng/L (0-15) 12/12/19 13:12 Delta Troponin T -1.88 ABS# (0-10) L 12/12/19 13:12 Troponin T Hi Sens 6Hr 10.13 ng/L (0-15) 12/12/19 17:17 Troponin T Hi Sens 6Hr Delta -1.87 ng/L (0-12) L 12/12/19 17:17 NT-Pro-B Natriuret Pep 232 pg/mL (0-450) 12/12/19 13:12 Total Protein 7.7 g/dL (6.6-8.7) 12/16/19 04:10 Albumin 3.7 g/dL (3.5-5.2) 12/16/19 04:10 Globulin 4.0 g/dL (1.3-4.6) 12/16/19 04:10 Triglycerides 69 mg/dL (0-150) 12/13/19 05:07 Cholesterol 163 mg/dL (0-200) 12/13/19 05:07 LDL Cholesterol, Calc 102 mg/dL (50-129) 12/13/19 05:07 Total VLDL Cholesterol 14 mg/dL (0-30) 12/13/19 05:07 HDL Cholesterol 47 mg/dL (60-100) L 12/13/19 05:07 Cholesterol/HDL Ratio 3.47 mg/dL (1.0-5.00) 12/13/19 05:07 Procalcitonin 0.08 ng/mL (0-0.5) 12/12/19 13:12 TSH 3.61 uIU/mL (0.27-4.20) 12/12/19 13:12 Urine Color Yellow (Yellow) 12/15/19 14:00 Urine Appearance Clear (CLEAR) 12/15/19 14:00 Urine pH 6 (5-7) 12/15/19 14:00 Ur Specific [place] 1.010 (1.005-1.030) 12/15/19 14:00 Urine Protein Neg (Negative) 12/15/19 14:00 Urine Glucose (UA) Norm (Normal) 12/15/19 14:00 Urine Ketones Negative (Negative) 12/15/19 14:00 Urine Blood 3+ (Negative) H 12/15/19 14:00 Urine Nitrate Negative (Negative) 12/15/19 14:00 Urine Bilirubin Neg (NEGATIVE) 12/15/19 14:00 Urine Urobilinogen Norm mg/dL (Negative) 12/15/19 14:00 Ur Leukocyte Esterase 1+ (Negative) H 12/15/19 14:00 Urine RBC 5-10 /hpf (0-2) H 12/15/19 14:00 Urine WBC 15-25 /hpf (0-5) H 12/15/19 14:00 Ur Squamous Epith Cells 5-10 (0-5) H 12/15/19 14:00 Amorphous Sediment Not Reportable 12/15/19 14:00 Urine Bacteria 2+ (NONE) H 12/15/19 14:00 Hyaline Casts 0-4 H 12/12/19 12:15 Urine Mucus Trace 12/12/19 12:15 Urine Yeast 1+ H 12/12/19 12:15 Urine Opiates Screen Negative ng/mL (Negative) 12/12/19 12:15 Ur Barbiturates Screen Negative ng/mL (Negative) 12/12/19 12:15 Ur Phencyclidine Scrn Negative ng/mL (Negative) 12/12/19 12:15 Ur Amphetamines Screen Negative ng/mL (Negative) 12/12/19 12:15 U Benzodiazepines Scrn Negative ng/mL (Negative) 12/12/19 12:15 Urine Cocaine Screen Negative ng/mL (Negative) 12/12/19 12:15 U Marijuana (THC) Screen Negative ng/mL (Negative) 12/12/19 12:15 Blood Type O Positive 12/15/19 17:50 Rho(D) Type Positive 12/15/19 17:50 Antibody Screen Negative 12/15/19 17:50 Crossmatch See Detail 12/15/19 17:50 A&P Assessment and plan (1) Carotid stenosis, bilateral: Status post left carotid endarterectomy. Currently postoperative, seems to be stable with no arrhythmias. Status: Acute (2) Syncope: No recurrence of syncope since hospital admission. Status: Acute Qualifiers: Syncope type: unspecified Qualified Code(s): R55 - Syncope and collapse (3) CAD (coronary artery disease): Clinically stable with no chest pain or any specific cardiac symptoms. Unremarkable myocardial perfusion imaging. Status: Acute Qualifiers: Associated angina: without angina Coronary Disease-Associated Artery/Lesion type: [place] artery [place] vs. transplanted heart: [place] heart Qualified Code(s): I25.10 - Atherosclerotic heart disease of [place] coronary artery without angina pectoris (4) Dyslipidemia: Continue on the current medications. Status: Acute (5) HTN (hypertension): Patient was somewhat hypotensive. Now immediate postoperative- the blood pressure is running little on the low side. Status: Acute Qualifiers: Hypertension type: essential hypertension Qualified Code(s): I10 - Essential (primary) hypertension (6) Transient cerebral ischemia: No recurrence. Status: Acute Qualifiers: Transient cerebral ischemia type: unspecified Qualified Code(s): G45.9 - Transient cerebral ischemic attack, unspecified Additional A&P Information Close monitoring in the ICU. Careful IV hydration. Attestations Medical Necessity Statement*: Patient requires continued hospital stay for close monitoring and further management Coding Level of Care Code Acute Patient Admitting Clerk for [facility] Fwd Diagnoses Carotid stenosis, bilateral I65.23 Syncope R55 Syncope type: unspecified CAD (coronary artery disease) I25.10 Associated angina: without angina Coronary Disease-Associated Artery/Lesion type: [place] artery [place] vs. transplanted heart: [place] heart Dyslipidemia E78.5 HTN (hypertension) I10 Hypertension type: essential hypertension Transient cerebral ischemia G45.9 Transient cerebral ischemia type: unspecified
[2019-12-17] VITALS (19 sets, daily range): BP systolic 93–137; BP diastolic 42–82; PULSE 42–81; RESP 14–30; TEMP 37.1; O2SAT 78–98
[2019-12-17 05:24] LABS: Basophils % 0.1 %; Hematocrit 32.2 % (42.0-52.0); Hemoglobin 9.8 g/dL (11.7-16.6); Lymphocytes # 1.3 10^3/uL (0.8-4.8); Lymphocytes % 12.3 %; Mean Corpuscular HGB Conc 30.4 g/dL (30.0-36.0); Mean Corpuscular Hemoglobin 26.6 pg (28.0-34.0); Mean Corpuscular Volume 87.3 fL (80-94); Mean Platelet Volume 10.5 fL (7.4-10.4); Monocytes % 9.4 %; Neutrophils # 8.13 10^3/uL (1.8-7.7); Neutrophils % 77.9 %; Nucleated Red Blood Cells % 0 %; Platelet Count 297 10^3/cmm (130-400); Red Blood Count 3.69 10^6/uL (4.1-5.3); Red Cell Distribution Width 16.5 % (12.1-15.1); White Blood Count 10.4 10^3/uL (4.0-10.0)
[2019-12-17 05:52] LABS: Alanine Aminotransferase 8 U/L (0-41); Albumin Level 2.9 g/dL (3.5-5.2); Alkaline Phosphatase 34 IU/L (40-130); Anion Gap 11.2 (5-19); Aspartate Amino Transferase 18 U/L (0-40); Blood Urea Nitrogen 18 mg/dL (8-23); Calcium 8.7 mg/dL (8.5-10.5); Carbon Dioxide 23 mmol/L (22-29); Chloride 109 mmol/L (98-107); Globulin 3.2 g/dL (1.3-4.6); Glucose 110 mg/dL (65-115); Osmolality Calculated 285 mOsm/kg (285-295); Potassium 4.2 mmol/L (3.5-5.1); Sodium 139 mmol/L (136-145); Total Bilirubin 0.2 mg/dL (0.15-1.2); Total Protein 6.1 g/dL (6.6-8.7)
[2019-12-17] MEDS: levoFLOXacin 500 mg Tablet PO (06:04)
--- NOTE | 2019-12-17 06:40 | P.PN_ITS ---
Subjective Subjective: Interval history: Postop day #1 status post left carotid endarterectomy. Uneventful night. Low AZEB drain output. No neurologic issues. He is noted to get bradycardic into the upper 30s at night. Please see my note at the bottom of this document under assessment and plan. AZEB drain was removed. Incision line clean and dry. Voice quality normal. No swallowing difficulties. Tongue is midline with protrusion. Vitals/I&O/Wt Last Vital Signs Temp 97.8 F 12/16/19 19:00 Pulse 43 L 12/17/19 04:00 Resp 17 12/17/19 04:00 BP 105/51 12/17/19 04:00 Pulse Ox 93 12/17/19 04:00 12/16/19 12/16/19 12/17/19 14:59 22:59 06:59 Intake Total 2950 / 2950 1343.333 / 4293.333 Output Total 1850 / 1850 301 / 2151 540 / 2691 Balance 1100 / 1100 1042.333 / 2142.333 -540 / 1602.333 Weight last 48 hrs Weight 152 lb 1 oz Physical Exam Const: COMMON NORMALS: patient oriented x3 Neck/C-Spine: COMMON NORMALS: no lymphadenopathy and supple GENERAL: Yes normal visual inspection (Trachea midline. No substantial swelling noted. Incision line clean and dry.) Neuro: COMMON NORMALS: patient oriented x3, no focal motor deficits and no sensory deficits noted Urinary Catheter Management^: Mathias: Cath Placed During This Visit: yes, but has since been removed by the nurse Reason for Continuing Indwelling Catheter: Accurate Measurement of Urinary Output in Critically Ill Patients Urinary Catheter Date of Insertion: 12/16/19 Urinary Catheter Time of Insertion: 07:30 Date Urinary Catheter Removed: 12/16/19 Time Urinary Catheter Discontinued: 18:15 Data : 12/17/19 04:31 12/17/19 04:31 A&P Assessment and plan (1) Carotid stenosis, bilateral: Postop day #1 status post left carotid endarterectomy. Recovering well. Recommend follow-up in my clinic in 1 week and we will obtain a routine postop duplex study of the left side in 6 weeks. Status: Acute (2) Syncope: I would like hospitalist and cardiology input as into recent history of syncopal episodes. Mr. Hannon describes these, usually while he is repositioning or lifting his . I have concerns, noting his documented periods of bradycardia into the upper 30s, that perhaps he is having a Valsalva maneuver and having profound bradycardia resulting in these intermittent near syncopal episodes. Cardiology input is requested as to determine whether there may be a bradycardic origin as a potential for these events, and whether medication adjustment or pacemaker implantation would be justified. Status: Acute Qualifiers: Syncope type: unspecified Qualified Code(s): R55 - Syncope and collapse Attestations Medical Necessity Statement*: Postop day #1 status post left carotid endarterectomy Time Spent in Patient Care: 16 - 35 minutes Coding Level of Care Code Acute Product Support Manager for [facility] Fwd Diagnoses Carotid stenosis, bilateral I65.23 Syncope R55 Syncope type: unspecified
--- NOTE | 2019-12-17 07:02 | PC.NURSE ---
recd. sitting up in chair. no c/o
[2019-12-17 07:12] LABS: Magnesium 1.8 mg/dL (1.7-2.3); Phosphorus 2.8 mg/dL (2.5-4.5)
--- NOTE | 2019-12-17 08:09 | PC.NURSE ---
ortho static v/s. supine-118/6, 65, 16: sitting-121/74, 60, 20: standing- 133/64, 56, 20. heart rate dropped from 75 to 56 during process.
--- NOTE | 2019-12-17 08:30 | ANE.PACU2 ---
Inpatient post-anesthesia follow up: Airway intact: Yes Vital signs: Temperature 97.8 F Pulse Rate [Monito r] 68 Pulse Rate [Orthos tatic 74 Standing Apical] Pulse Rate [Orthos tatic 58 Sitting Apical] Pulse Rate [Orthos tatic Lying 63 Apical] Pulse Rate 43 Respiratory Rate 17 Blood Pressure [Or thostatic 112/64 Standing Right Arm ] Blood Pressure [Or thostatic 123/54 Sitting Right Arm] Blood Pressure [Or thostatic 105/65 Lying Right Arm] Blood Pressure [Ri ght Arm] 84/54 Blood Pressure 105/51 Pulse Oximetry 93 Oxygen Delivery Me thod Room Air Oxygen Flow Rate 2 Fraction of Inspir ed Oxygen Hydration adequate: Yes Nausea and vomiting: No Pain level: 1 Mental status: Baseline
--- NOTE | 2019-12-17 08:41 | P.PN_ITS ---
Subjective Subjective: Interval history: Postop day #1 status post left carotid endarterectomy. Uneventful night. Low AZEB drain output. No neurologic issues. He is noted to get bradycardic into the upper 30s at night. Please see my note at the bottom of this document under assessment and plan. AZEB drain was removed. Incision line clean and dry. Voice quality normal. No swallowing difficulties. Tongue is midline with protrusion. Medications: Reviewed: Yes Medication Review Details: Current Medications Hydrocodone Bitart/Acetaminophen ([place] 5-325 Mg) 1 tab PO Q4H PRN PRN Reason: MODERATE PAIN Amlodipine Besylate (Norvasc) 5 mg PO DAILY [facility] Last Admin: 12/15/19 10:22 Dose: 5 mg Documented by: Aspirin (Aspirin Ec) 81 mg PO DAILY [facility] Last Admin: 12/15/19 09:27 Dose: 81 mg Documented by: Aspirin (Aspirin Chewable) 81 mg PO DAILY [facility] Atorvastatin Calcium (Lipitor) 80 mg PO BEDTIME [facility] Last Admin: 12/16/19 20:57 Dose: 80 mg Documented by: Bisacodyl (Dulcolax) 10 mg PO DAILY PRN PRN Reason: CONSTIPATION Lactated Ringer's (Lactated Ringers) 1,000 mls @ 100 mls/hr IV .Q10H [facility] Last Infusion: 12/17/19 08:12 Dose: Infused Documented by: Ketorolac Tromethamine (Toradol) 30 mg IVP Q6H PRN PRN Reason: MODERATE PAIN Stop: 12/21/19 11:27 Levofloxacin (Levaquin) 500 mg PO DAILY@0600 [facility]; Protocol Last Admin: 12/17/19 06:04 Dose: 500 mg Documented by: Metoprolol Succinate (Toprol Xl) 12.5 mg PO DAILY [facility] Last Admin: 12/15/19 09:34 Dose: 12.5 mg Documented by: Morphine Sulfate (Morphine) 2 mg IVP Q1H PRN PRN Reason: SEVERE PAIN Mupirocin (Bactroban) 1 applic NASAL BID [facility] Last Admin: 12/16/19 17:42 Dose: Not Given Documented by: Ondansetron HCl (Zofran) 4 mg IVP Q8H PRN PRN Reason: vomiting, or N/V if npo Pantoprazole Sodium (Protonix) 40 mg PO DAILY [facility] Last Admin: 12/15/19 09:27 Dose: 40 mg Documented by: Tamsulosin HCl (Flomax) 0.4 mg PO DAILY [facility] Vitals/I&O/Wt Last Vital Signs Temp 97.8 F 12/16/19 19:00 Pulse 43 L 12/17/19 04:00 Resp 17 12/17/19 04:00 BP 105/51 12/17/19 04:00 Pulse Ox 93 12/17/19 04:00 12/16/19 12/17/19 12/17/19 22:59 06:59 14:59 Intake Total 1343.333 / 4293.333 900 / 900 Output Total 301 / 2151 540 / 2691 Balance 1042.333 / 2142.333 -540 / 1602.333 900 / 900 Weight last 48 hrs Weight 152 lb 1 oz Physical Exam Narrative: EXAM NARRATIVE: GENERAL: The patient is alert and oriented times three. Not in any acute distress. HEENT: No significant pallor, icterus or lymphadenopathy.Oral cavity: There are no mucous membrane lesions. NECK: Trachea appears to be central. No masses noted. No JVD or thyromegaly appreciated. The endarterectomy site appears to have no hematoma or bleeding RESPIRATORY: Chest is symmetrical. No intercostals muscle retraction or any accessory muscle activation. There is no chest wall tenderness. Breath sounds are heard bilaterally. No rales or rhonchi heard. No evidence of any consolidation. BREASTS: Deferred. HEART: The heart sounds are normal. No S3 or S4. No significant murmurs. No pericardial rub ABDOMEN: No vessel pulsations or distention. No tenderness. No organomegaly appreciated. Bowel sounds are normally heard. : Deferred. RECTAL: Deferred. LYMPHATIC: No lymphadenopathy noted in the neck or groin. EXTREMITIES: No edema or cyanosis. No clubbing. Peripheral pulses are palpated in fairly good volume and amplitude MUSCULOSKELETAL: No acute joint deformities or swelling SKIN: There are no significant rashes or ecchymosis NEUROPSYCHIATRIC: The patient is alert and oriented x3. Appears to be in a good mood. No tremors or rigidity noted. Urinary Catheter Management^: Mathias: Cath Placed During This Visit: yes, but has since been removed by the nurse Reason for Continuing Indwelling Catheter: Accurate Measurement of Urinary Output in Critically Ill Patients Urinary Catheter Date of Insertion: 12/16/19 Urinary Catheter Time of Insertion: 07:30 Date Urinary Catheter Removed: 12/16/19 Time Urinary Catheter Discontinued: 18:15 Data : 12/17/19 04:31 12/17/19 04:31 Other Labs: Laboratory Last Values WBC 10.4 10^3/uL (4.0-10.0) H 12/17/19 04:31 RBC 3.69 10^6/uL (4.1-5.3) L 12/17/19 04:31 Hgb 9.8 g/dL (11.7-16.6) L 12/17/19 04:31 Hct 32.2 % (42.0-52.0) L 12/17/19 04:31 MCV 87.3 fL (80-94) 12/17/19 04:31 MCH 26.6 pg (28.0-34.0) L 12/17/19 04:31 MCHC 30.4 g/dL (30.0-36.0) 12/17/19 04:31 RDW 16.5 % (12.1-15.1) H 12/17/19 04:31 Plt Count 297 10^3/cmm (130-400) 12/17/19 04:31 MPV 10.5 fL (7.4-10.4) H 12/17/19 04:31 Neut % (Auto) 77.9 % 12/17/19 04:31 Lymph % (Auto) 12.3 % 12/17/19 04:31 [place] % (Auto) 9.4 % 12/17/19 04:31 Eos % (Auto) 0.0 % 12/17/19 04:31 Baso % (Auto) 0.1 % 12/17/19 04:31 Neut # (Auto) 8.13 10^3/uL (1.8-7.7) H 12/17/19 04:31 Lymph # (Auto) 1.3 10^3/uL (0.8-4.8) 12/17/19 04:31 [place] # (Auto) 1.0 10^3/uL (0.2-0.9) H 12/17/19 04:31 Eos # (Auto) 0.0 10^3/uL (0.0-0.8) 12/17/19 04:31 Baso # (Auto) 0.0 10^3/uL (0.0-0.1) 12/17/19 04:31 Nucleated RBC % (auto) 0 % 12/17/19 04:31 Nucleated RBCs # 0.0 /100WBC 12/17/19 04:31 PT 13.50 SECONDS (12.1-14.9) 12/12/19 11:00 INR 1.00 (0.8-1.2) 12/12/19 11:00 APTT 29.9 SECONDS (23.9-36.7) 12/12/19 11:00 Sodium 139 mmol/L (136-145) 12/17/19 04:31 Potassium 4.2 mmol/L (3.5-5.1) 12/17/19 04:31 Chloride 109 mmol/L (98-107) H 12/17/19 04:31 Carbon Dioxide 23 mmol/L (22-29) 12/17/19 04:31 Anion Gap 11.2 (5-19) 12/17/19 04:31 BUN 18 mg/dL (8-23) 12/17/19 04:31 Creatinine 1.0 mg/dL (0.7-1.2) 12/17/19 04:31 GFR Calculation Not Reportable 12/17/19 04:31 Glucose 110 mg/dL (65-115) 12/17/19 04:31 POC Glucose 90 mg/dL (70-110) 12/12/19 16:43 Estimat Average Glucose 114 12/13/19 05:07 Hemoglobin A1c 5.6 % (4.0-6.0) 12/13/19 05:07 Calculated Osmolality 285 mOsm/kg (285-295) 12/17/19 04:31 Lactic Acid 2.1 mmol/L (0.5-2.2) 12/12/19 10:56 Lactic Acid (Sepsis) 1.0 mmol/L (0.5-2.2) 12/12/19 14:10 Calcium 8.7 mg/dL (8.5-10.5) 12/17/19 04:31 Phosphorus 2.8 mg/dL (2.5-4.5) 12/17/19 04:31 Magnesium 1.8 mg/dL (1.7-2.3) 12/17/19 04:31 Iron 83 ug/dL (59-158) 12/12/19 13:12 TIBC 267 mcg/dl 12/12/19 13:12 % Saturation 31.0 % (20-50) 12/12/19 13:12 Unsat Iron Binding 184 ug/dL (112-347) 12/12/19 13:12 Total Bilirubin 0.2 mg/dL (0.15-1.2) 12/17/19 04:31 AST 18 U/L (0-40) 12/17/19 04:31 ALT 8 U/L (0-41) 12/17/19 04:31 Alkaline Phosphatase 34 IU/L (40-130) L 12/17/19 04:31 Troponin T Baseline 12 ng/L (0-15) 12/12/19 11:00 Troponin T 120 Minute 10.12 ng/L (0-15) 12/12/19 13:12 Delta Troponin T -1.88 ABS# (0-10) L 12/12/19 13:12 Troponin T Hi Sens 6Hr 10.13 ng/L (0-15) 12/12/19 17:17 Troponin T Hi Sens 6Hr Delta -1.87 ng/L (0-12) L 12/12/19 17:17 NT-Pro-B Natriuret Pep 232 pg/mL (0-450) 12/12/19 13:12 Total Protein 6.1 g/dL (6.6-8.7) L 12/17/19 04:31 Albumin 2.9 g/dL (3.5-5.2) L 12/17/19 04:31 Globulin 3.2 g/dL (1.3-4.6) 12/17/19 04:31 Triglycerides 69 mg/dL (0-150) 12/13/19 05:07 Cholesterol 163 mg/dL (0-200) 12/13/19 05:07 LDL Cholesterol, Calc 102 mg/dL (50-129) 12/13/19 05:07 Total VLDL Cholesterol 14 mg/dL (0-30) 12/13/19 05:07 HDL Cholesterol 47 mg/dL (60-100) L 12/13/19 05:07 Cholesterol/HDL Ratio 3.47 mg/dL (1.0-5.00) 12/13/19 05:07 Procalcitonin 0.08 ng/mL (0-0.5) 12/12/19 13:12 TSH 3.61 uIU/mL (0.27-4.20) 12/12/19 13:12 Urine Color Yellow (Yellow) 12/15/19 14:00 Urine Appearance Clear (CLEAR) 12/15/19 14:00 Urine pH 6 (5-7) 12/15/19 14:00 Ur Specific [place] 1.010 (1.005-1.030) 12/15/19 14:00 Urine Protein Neg (Negative) 12/15/19 14:00 Urine Glucose (UA) Norm (Normal) 12/15/19 14:00 Urine Ketones Negative (Negative) 12/15/19 14:00 Urine Blood 3+ (Negative) H 12/15/19 14:00 Urine Nitrate Negative (Negative) 12/15/19 14:00 Urine Bilirubin Neg (NEGATIVE) 12/15/19 14:00 Urine Urobilinogen Norm mg/dL (Negative) 12/15/19 14:00 Ur Leukocyte Esterase 1+ (Negative) H 12/15/19 14:00 Urine RBC 5-10 /hpf (0-2) H 12/15/19 14:00 Urine WBC 15-25 /hpf (0-5) H 12/15/19 14:00 Ur Squamous Epith Cells 5-10 (0-5) H 12/15/19 14:00 Amorphous Sediment Not Reportable 12/15/19 14:00 Urine Bacteria 2+ (NONE) H 12/15/19 14:00 Hyaline Casts 0-4 H 12/12/19 12:15 Urine Mucus Trace 12/12/19 12:15 Urine Yeast 1+ H 12/12/19 12:15 Urine Opiates Screen Negative ng/mL (Negative) 12/12/19 12:15 Ur Barbiturates Screen Negative ng/mL (Negative) 12/12/19 12:15 Ur Phencyclidine Scrn Negative ng/mL (Negative) 12/12/19 12:15 Ur Amphetamines Screen Negative ng/mL (Negative) 12/12/19 12:15 U Benzodiazepines Scrn Negative ng/mL (Negative) 12/12/19 12:15 Urine Cocaine Screen Negative ng/mL (Negative) 12/12/19 12:15 U Marijuana (THC) Screen Negative ng/mL (Negative) 12/12/19 12:15 Blood Type O Positive 12/15/19 17:50 Rho(D) Type Positive 12/15/19 17:50 Antibody Screen Negative 12/15/19 17:50 Crossmatch See Detail 12/15/19 17:50 A&P Assessment and plan (1) Carotid stenosis, bilateral: Status post left carotid endarterectomy. Currently postoperative, seems to be stable with no arrhythmias. Status: Resolved (2) Syncope: No recurrence of syncope since hospital admission. Status: Acute Qualifiers: Syncope type: unspecified Qualified Code(s): R55 - Syncope and collapse (3) CAD (coronary artery disease): Clinically stable with no chest pain or any specific cardiac symptoms. Unremarkable myocardial perfusion imaging. Status: Acute Qualifiers: Associated angina: without angina Coronary Disease-Associated Artery/Lesion type: ione artery [place] vs. transplanted heart: ione heart Qualified Code(s): I25.10 - Atherosclerotic heart disease of ione coronary artery without angina pectoris (4) Dyslipidemia: Continue on the current medications. Status: Acute (5) HTN (hypertension): Patient was somewhat hypotensive. Now -immediate postoperative- the blood pressure is running little on the low side. Status: Acute Qualifiers: Hypertension type: essential hypertension Qualified Code(s): I10 - Essential (primary) hypertension (6) Transient cerebral ischemia: No recurrence. Status: Acute Qualifiers: Transient cerebral ischemia type: unspecified Qualified Code(s): G45.9 - Transient cerebral ischemic attack, unspecified Additional A&P Information Close monitoring in the ICU. Careful IV hydration. Attestations Medical Necessity Statement*: Defer to the primary Coding Level of Care Code Acute Educational Consultant for [facility] Diagnoses Carotid stenosis, bilateral I65.23 Syncope R55 Syncope type: unspecified CAD (coronary artery disease) I25.10 Associated angina: without angina Coronary Disease-Associated Artery/Lesion type: ione artery [place] vs. transplanted heart: ione heart Dyslipidemia E78.5 HTN (hypertension) I10 Hypertension type: essential hypertension Transient cerebral ischemia G45.9 Transient cerebral ischemia type: unspecified
--- NOTE | 2019-12-17 09:00 | PC.SOCIAL ---
IMM Updated Page 2 of IMM updated and given to patient. Initialed, dated, and timed and placed back in chart.
[2019-12-17] MEDS: aspirin 81 mg EC Tablet PO ×2 (09:25→09:26)
[2019-12-17] MEDS: pantoprazole DR 40 mg Tablet PO (09:26)
[2019-12-17] MEDS: tamsulosin 0.4 mg Capsule PO (09:27)
--- NOTE | 2019-12-17 09:29 | PC.NURSE ---
med barcode torn prior to scanning. meds given
--- NOTE | 2019-12-17 10:39 | PC.CHAP ---
Pastoral Care Encounter/Spiritual Assessment Type of Contact [] Declined washing machine repairer visit [] Patient/Family/Request visit [] Outpatient visit [] Follow-up visit [] Physician referral [] Code/Alert [x] Routine visit [] Staff referral [] Actively dying [] Patient sleeping [] Family support [] [] Out of room [] Palliative care [] [] Receiving care in room [] Pre-surgical visit [] Trauma [] Long length of stay [] ICU visit [] Other: Relational/Emotional Strength [] Patient feels connected with others/family/visitors/staff [] Distress [] Loneliness/isolation [] Abandonment Spirituality of Patient [] Person of Sparkle [] Attends Confucianism of their Sparkle [] Believes in Prayer [] Reads Bible or Orthodoxy materials [] There are Spiritual issues to be addressed Washery Engineer Interventions [x] Prayer [x] Active listening [x] Non-anxious presence [x] Spiritual/emotional support [] Crisis/trauma care [] Spiritual counseling [] Bereavement support [] Provided bereavement packet [] Provided Bible/devotional materials [] Provided toy/stuffed animal, coloring book to patient or family member [] Provided Communion [] Anointing/[place] [] Salvation [x] Completed spiritual assessment [] Other: Impact on Illness or Injury [] Angry [] Fearful [] Anxious [] Often cries [] Exhaustion [] Unable to work [] Unable to attend congregational [] Unable to walk/stand [] Unable to read [] Unable to drive [] Unable to eat/drink [] Unable to sleep [] Unable to be with family [] Patient intubated [] Other: Summary patient feeling stronger. Time spent with patient 10 min
--- NOTE | 2019-12-17 10:56 | P.DS_ITS ---
Discharge Providers Date of Admission: 12/12/19 13:07 Date of Discharge: December 17, 2019 Attending Provider at Admission: Ginna Do MD Attending Provider at Discharge: Souleymane Henry MD Primary Care Provider: Marques Sterling MD Diagnoses at Discharge Discharge Diagnosis (1) Carotid stenosis, bilateral: Status: Acute (2) Syncope: Status: Acute Qualifiers: Syncope type: unspecified Qualified Code(s): R55 - Syncope and collapse (3) CAD (coronary artery disease): Status: Acute Qualifiers: Coronary Disease-Associated Artery/Lesion type: [place] artery [place] vs. transplanted heart: [place] heart Associated angina: without angina Qualified Code(s): I25.10 - Atherosclerotic heart disease of [place] coronary artery without angina pectoris (4) Dyslipidemia: Status: Acute (5) HTN (hypertension): Status: Acute Qualifiers: Hypertension type: essential hypertension Qualified Code(s): I10 - Essential (primary) hypertension (6) Transient cerebral ischemia: Status: Acute Qualifiers: Transient cerebral ischemia type: unspecified Qualified Code(s): G45.9 - Transient cerebral ischemic attack, unspecified Reason for Visit Reason for Visit: Stroke like symtpoms Hospital Course Discharge Summary: This is a 74-year-old male with a past medical history of hypertension, hyperlipidemia, BPH, history of nonobstructive coronary artery disease who presents for evaluation of recurrent episodes of presyncope and syncope For his presyncope and syncope episode, etiology was likely related to symptomatic left carotid artery stenosis of 84%, he also has 63% right ICA stenosis. Patient required cardiac evaluation before planned surgical procedure given his history of nonobstructive CAD and concerns for possible CAD as a addit ional etiology to his initial presentation; cardiology was consulted, had a low probability of obstructive CAD on his cardiac stress test. Patient had a left carotid endarterectomy by Dr. Schwarz, tolerated the surgical procedure well, discharged with aspirin, statin, with close follow-up with Dr. Schwarz as outpatient. Through his admission there was some concerns of vasovagal syncope and associated bradycardia as a possible additional etiology to patient's initial presentation. As patient describes symptomatology typically occurring when he was lifting his 160 pound with Parkinson's disease. Patient was advised against heavy lifting, advised to hold blood pressure medications unless systolic blood pressure greater than 140 or diastolic blood pressure greater than 90, if so he was to call cardiology for further instructions, and will follow-up cardiology in the next few weeks for consideration of Holter monitoring. Patient was advised that if he were to have recurrent episodes of presyncope or syncope to come back to the emergency room. Physical Exam Narrative: EXAM NARRATIVE: Surgical site, left neck, dressing on top of it, clean and dry Const: COMMON NORMALS: no acute distress and patient oriented x3 HENMT: COMMON NORMALS: normocephalic HEAD & SCALP: normocephalic Neck/C-Spine: COMMON NORMALS: no JVD Resp: COMMON NORMALS: normal respiratory effort, No retractions, No use of accessory muscles and clear to auscultation bilaterally AUSCULTATION: clear to auscultation bilaterally Cardio: COMMON NORMALS: no JVD, regular rate, regular rhythm, S1 normal heart sound present and S2 normal heart sound present RATE: regular rate RHYTHM: regular rhythm HEART SOUNDS: S1 normal heart sound present and S2 normal heart sound present GI: COMMON NORMALS: Normal to inspection, nondistended, normoactive bowel sounds present, Soft to palpation, non-tender, No hepatosplenomegaly present, no masses and no bruits PALPATION: Yes Soft to palpation and Yes No hepatosplenomegaly present Extremity: COMMON NORMALS: capillary refill normal, no clubbing, cyanosis or edema, no calf tenderness and no pedal edema Neuro: COMMON NORMALS: patient oriented x3 Psych: COMMON NORMALS: mental status grossly normal Urinary Catheter Management^: Mathias: Cath Placed During This Visit: yes, but has since been removed by the nurse Reason for Continuing Indwelling Catheter: Accurate Measurement of Urinary Output in Critically Ill Patients Urinary Catheter Date of Insertion: 12/16/19 Urinary Catheter Time of Insertion: 07:30 Date Urinary Catheter Removed: 12/16/19 Time Urinary Catheter Discontinued: 18:15 Discharge Data Data Completed and Pending: Completed Studies During Hospitalization Category Date Time Status CT angio headneck * [id number] Urge nt Cat Scan 12/12/19 11:[address] head wo con* [id number] Stat Cat Scan 12/12/19 10:52 Completed CXRP [XR chest 1V portable [id number]] S tat Exams 12/12/19 11:14 Completed Sestamibi Stress Test Request Routi ne Exams 12/15/19 06:00 Completed NM lisa perf SPECT r/s* [id number] Routin e Nuc Med 12/15/19 13:06 Completed CV echo complete* [id number] Routine Ultrasound 12/12/19 13:50 Completed Pending at discharge Category Date Time Status Complete Blood Co unt w/Auto AM LABS Lab 12/18/19 04:00 Ordered Complete Blood Co unt w/Auto AM LABS Lab 12/19/19 04:00 Ordered Comprehensive Met abolic Panel AM LA BS Lab 12/18/19 04:00 Ordered Comprehensive Met abolic Panel AM LA BS Lab 12/19/19 04:00 Ordered Leukocyte Reduced RBC Routine Lab 12/15/19 17:50 Results Magnesium AM LABS Lab 12/18/19 04:00 Ordered Phosphorus AM LAB S Lab 12/18/19 04:00 Ordered Type and Screen R outine Lab 12/15/19 17:50 Results Urine Culture Rou elaina Lab 12/15/19 14:00 Received Pathology: Surgic al [PTH] Routine Pth 12/16/19 10:22 Received Labs from last 24 hours 12/17/19 12/17/19 12/17/19 04:31 04:31 04:31 WBC 10.4 H RBC 3.69 L Hgb 9.8 L Hct 32.2 L MCV 87.3 MCH 26.6 L MCHC 30.4 RDW 16.5 H Plt Count 297 MPV 10.5 H Neut % (Auto) 77.9 Lymph % (Auto) 12.3 Pershing % (Auto) 9.4 Eos % (Auto) 0.0 Baso % (Auto) 0.1 Neut # (Auto) 8.13 H Lymph # (Auto) 1.3 Pershing # (Auto) 1.0 H Eos # (Auto) 0.0 Baso # (Auto) 0.0 Nucleated RBC % (a uto) 0 Nucleated RBCs # 0.0 Sodium 139 Potassium 4.2 Chloride 109 H Carbon Dioxide 23 Anion Gap 11.2 BUN 18 Creatinine 1.0 GFR Calculation Not Reportable Glucose 110 Calculated Osmolal ity 285 Calcium 8.7 Phosphorus 2.8 Magnesium 1.8 Total Bilirubin 0.2 AST 18 ALT 8 Alkaline Phosphata se 34 L Total Protein 6.1 L Albumin 2.9 L Globulin 3.2 Blood Type Rho(D) Type Antibody Screen Crossmatch 12/15/19 17:50 WBC RBC Hgb Hct MCV MCH MCHC RDW Plt Count MPV Neut % (Auto) Lymph % (Auto) Pershing % (Auto) Eos % (Auto) Baso % (Auto) Neut # (Auto) Lymph # (Auto) Pershing # (Auto) Eos # (Auto) Baso # (Auto) Nucleated RBC % (a uto) Nucleated RBCs # Sodium Potassium Chloride Carbon Dioxide Anion Gap BUN Creatinine GFR Calculation Glucose Calculated Osmolal ity Calcium Phosphorus Magnesium Total Bilirubin AST ALT Alkaline Phosphata se Total Protein Albumin Globulin Blood Type O Positive Rho(D) Type Positive Antibody Screen Negative Crossmatch See Detail Vitals: Last Vital Signs Temp 97.8 F 12/16/19 19:00 Pulse 70 12/17/19 08:30 Resp 19 H 12/17/19 08:30 BP 137/71 12/17/19 08:00 Pulse Ox 96 12/17/19 08:00 Discharge Plan Discharge Patient Disposition: Home Condition: Stable Prescriptions: New atorvastatin 40 mg Tablet 80 mg PO BEDTIME 30 Days Qty: 60 RF: 0 aspirin 81 mg Tablet,Delayed Release (Dr/Ec) 81 mg PO DAILY 30 Days Qty: 30 RF: 0 levofloxacin 500 mg Tablet 500 mg PO DAILY@0600 1 Days Qty: 1 RF: 0 Continued omeprazole 40 mg Capsule,Delayed Release(Dr/Ec) 40 mg PO DAILY RF: 0 Flomax 0.4 mg Capsule 0.4 mg PO DAILY RF: 0 Held metoprolol succinate 25 mg tablet extended release 24 hr 25 mg PO DAILY Qty: 90 RF: 3 Hold Instructions: Resume on 01/21/20. lisinopril 10 mg tablet 10 mg PO DAILY Qty: 90 RF: 3 Hold Instructions: Resume on 01/21/20. isosorbide mononitrate 30 mg Tablet Extended Release 24 Hr 30 mg PO DAILY RF: 0 Hold Instructions: Resume on 01/21/20. Discontinued Crestor 10 mg Tablet 10 mg PO DAILY RF: 0 Discharge Orders: Discharge Order (Routine); Ordered 12/17/19 Ordered By: Souleymane Henry Other Ambulatory Orders: Complete Blood Count w/Auto (Routine) Timeframe: 1 Week Location: Determined by Patient Ordered By: Souleymane Henry Creatine Phosphokinase (Routine) Timeframe: 1 Week Facility: [facility] - Location: Lab - Main Lab Ordered By: Souleymane Henry Comprehensive Metabolic Panel (Routine) Timeframe: 1 Week Facility: [facility] - Location: Lab - Main Lab Ordered By: Souleyamne Henry Referrals: Ethan Vizcarra MD [Physician] - 1 month Pradip Schwarz MD [Physician] - 2 weeks Marques Sterling MD [Primary Care Provider] - Discharge Diet: Cardiac Discharge Activity: Limit activity as instructed Patient Instructions: Syncope (DC), Carotid Endarterectomy (DC) Activity Restrictions/Additional Instructions: -If you have lightheadedness, or dizziness please come back to the emergency room -Please check your blood pressure twice daily, record them in a blood pressure log journal, bring to Dr. Vizcarra's office visit -If systolic blood pressure greater than 140 or diastolic blood pressure greater than 90, please call Dr. Vizcarra's office -Continue to hold blood pressure medications until seen by Dr. Vizcarra or Dr. Vizcarra tells you otherwise -Please follow-up with Dr. Vizcarra as scheduled -Please follow with Dr. 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 transplanted heart: [place] heart Associated angina: without angina Dyslipidemia E78.5 HTN (hypertension) I10 Hypertension type: essential hypertension Transient cerebral ischemia G45.9 Transient cerebral ischemia type: unspecified
--- NOTE | 2019-12-17 11:23 | PC.NURSE ---
preparing to d/c home.
--- NOTE | 2019-12-17 12:00 | PC.OT ---
OT Note: Pt's already dressed and ready to go home. Discussed care of spouse and pt already has plan of care for spouse paid caregiver 12 hours a day. Pt voiced he will not be doing any lifting and that he has trench pipe layer helper and sock aid for LE dressing to avoid bending over. Pt also states having shower chair.
--- NOTE | 2019-12-17 12:37 | PC.NURSE ---
discharged home with daughter.instructions to not lift., ect.
== END 2019-12-17 12:30 | disposition home or self-care (01) | DRG 38 ==
LOC: ER 12:49 → CSU 13:07 → ICU 12-16 11:02
PROVIDERS: Emergency Medicine; Student in an Organized Health Care Education/Training Program; Thoracic Surgery (Cardiothoracic Vascular Surgery); Admitting Provider Student in an Organized Health Care Education/Training Program; PCP Family Medicine; Visit Provider Family Medicine
PROC: 03CJ0ZZ Extirpation of Matter from Left Common Carotid Artery, Open Approach (ICD-10-PCS; CPT 35301; principal; 2019-12-16 07:00)
DX: I65.23 Occlusion and stenosis of bilateral carotid arteries (principal); N39.0 Urinary tract infection, site not specified; I25.10 Atherosclerotic heart disease of native coronary artery without angina pectoris; G45.9 Transient cerebral ischemic attack, unspecified; I10 Essential (primary) hypertension; I95.9 Hypotension, unspecified; R00.1 Bradycardia, unspecified; N40.0 Benign prostatic hyperplasia without lower urinary tract symptoms; K21.9 Gastro-esophageal reflux disease without esophagitis; G47.33 Obstructive sleep apnea (adult) (pediatric)
CPT/HCPCS: 12345; 36415; 36416; 51702; 70450; 70496; 70498; 71045; 78452; 80053; 80061; 80306; 81001; 82962; 83036; 83540; 83550; 83605; 83735; 83880; 84100; 84145; 84443; 84484; 85025; 85610; 85730; 86850; 86900; 86920; 87077; 87086; 87186; 88304; 93005; 93010; 93017; 93306; 94664; 96372; 97110; 97116; 97161; 97165; 97530; 97535; 99284; A9500; J0330; J0690; J1100; J1644; J1650; J1956; J2370; J2405; J2704; J2720; J2785; J3010; J3370; J3490; J7030; J7050; Q9967

== ENCOUNTER 2020-01-20 10:14 | Outpatient (CLI) | payer MEDICARE, SELFPAY ==
[2020-01-20 10:58] LABS: Basophils % 0.2 %; Eosinophils # 0.1 10^3/uL (0.0-0.8); Eosinophils % 1.8 %; Hematocrit 37.2 % (42.0-52.0); Hemoglobin 11.4 g/dL (11.7-16.6); Lymphocytes # 1.5 10^3/uL (0.8-4.8); Lymphocytes % 23.3 %; Mean Corpuscular HGB Conc 30.6 g/dL (30.0-36.0); Mean Corpuscular Hemoglobin 26.1 pg (28.0-34.0); Mean Corpuscular Volume 85.3 fL (80-94); Mean Platelet Volume 9.8 fL (7.4-10.4); Monocytes # 0.7 10^3/uL (0.2-0.9); Neutrophils # 4.21 10^3/uL (1.8-7.7); Neutrophils % 64.5 %; Nucleated Red Blood Cells % 0 %; Platelet Count 286 10^3/cmm (130-400); Red Blood Count 4.36 10^6/uL (4.1-5.3); Red Cell Distribution Width 14.6 % (12.1-15.1); White Blood Count 6.5 10^3/uL (4.0-10.0)
[2020-01-20 11:29] LABS: Alanine Aminotransferase 8 U/L (0-41); Albumin Level 3.8 g/dL (3.5-5.2); Alkaline Phosphatase 52 IU/L (40-130); Anion Gap 14.8 (5-19); Aspartate Amino Transferase 13 U/L (0-40); Blood Urea Nitrogen 16 mg/dL (8-23); Calcium 9.6 mg/dL (8.5-10.5); Carbon Dioxide 24 mmol/L (22-29); Chloride 104 mmol/L (98-107); Creatine Phosphokinase 66 U/L (39-308); Globulin 3.8 g/dL (1.3-4.6); Glucose 103 mg/dL (65-115); Osmolality Calculated 285 mOsm/kg (285-295); Potassium 3.8 mmol/L (3.5-5.1); Sodium 139 mmol/L (136-145); Total Bilirubin 0.3 mg/dL (0.15-1.2); Total Protein 7.6 g/dL (6.6-8.7)
== END 2020-01-20 10:15 | disposition home or self-care (01) ==
LOC: LAB 10:24
PROVIDERS: Family Medicine; PCP Family Medicine; Visit Provider Internal Medicine Cardiovascular Disease
DX: I65.23 Occlusion and stenosis of bilateral carotid arteries (principal); R55 Syncope and collapse; I25.10 Atherosclerotic heart disease of native coronary artery without angina pectoris; E78.5 Hyperlipidemia, unspecified; I10 Essential (primary) hypertension
CPT/HCPCS: 36415; 80053; 82550; 85025

== ENCOUNTER 2020-01-29 12:15 | Outpatient (CLI) | payer MEDICARE, SELFPAY ==
--- NOTE | 2020-01-29 12:21 | USCV_ITS ---
Finn Hannon Age: 74 Gender: M : 1945 Exam Date: 01/29/2020 12:45 Ordering Phys: Pradip Schwarz MD (Andy) ([email or web address] [place] Technologist: Kevin Holcomb [place] [facility] [place]: CAROTID STENOSIS Risk Factors: Previous Vascular Surgery: L CEA Right Brachial BP: / Left Brachial BP: / Right Left Velocity (cm/s) Spectral Plaque Velocity (cm/s) Spectral Plaque Syst/Diast Broadening Syst/Diast Broadening 120.20/19.80 Prox CCA 126.80/ 32.00 102.50/25.40 Mid CCA 102.50/ 28.70 113.60/27.60 Distal CCA 84.90 / 16.50 169.30/63.70 Prox ICA 82.20 / 33.50 115.80/37.50 Mid ICA 86.00 / 23.10 92.80/ 26.30 Distal ICA 72.80 / 18.20 141.10 ECA 64.60 1.13 ICA/CCA 0.84 Antegrade Vertebral Antegrade 70.60/ 12.10 cm/s 41.30/ 14.80 cm/s Tri Subclavian Bi 126.8 125.7 0 0 CONCLUSIONS Right ICA stenosis 50-69%. Moderate atheromatous plaque right carotid bulb/ICA. Left ICA stenosis <50%. Mild atheromatous plaque left carotid bulb/ICA. Normal antegrade Doppler flow noted in the right vertebral artery. Normal antegrade Doppler flow noted in the left vertebral artery. Antonino Samano MD (Electronically Signed) Final Date: 29 January 2020 16:57 S
== END 2020-01-29 12:16 | disposition home or self-care (01) ==
PROVIDERS: PCP Family Medicine; Visit Provider Thoracic Surgery (Cardiothoracic Vascular Surgery)
DX: I65.23 Occlusion and stenosis of bilateral carotid arteries (principal)
CPT/HCPCS: 93880

== ENCOUNTER 2020-09-17 10:29 | Outpatient (CLI) | payer MEDICARE, SELFPAY ==
--- NOTE | 2020-09-17 11:03 | USCV_ITS ---
Finn Hannon Age: 75 Gender: M : 1945 Exam Date: 09/17/2020 11:23 Ordering Phys: Pradip Schwarz MD (Andy) ([email or web address] [place]) Technologist: Earlene Aguero [place] [facility] [place]: STENOSIS Risk Factors: Previous Vascular Surgery: Right Brachial BP: / Left Brachial BP: / Right Left Velocity (cm/s) Spectral Plaque Velocity (cm/s) Spectral Plaque Syst/Diast Broadening Syst/Diast Broadening 124.60/20.90 Prox CCA 83.20 / 21.00 73.80/ 20.60 Mid CCA 65.10 / 13.00 72.00/ 19.70 Distal CCA 58.10 / 16.00 181.50/50.00 Prox ICA 80.20 / 26.00 155.20/47.30 Mid ICA 69.10 / 24.00 106.90/39.80 Distal ICA 73.10 / 25.00 134.30 ECA 90.20 2.46 ICA/CCA 1.23 Antegrade Vertebral Antegrade 30.00/ 7.80 cm/s 42.10/ 13.00 cm/s Tri Subclavian Tri 127.2 134.8 0 0 FINDINGS Comparison:. 01/29/20. Moderate elevation of velocity right ICA and CCA but not changed since the prior exam. Diffuse irregular plaque right carotid artery. Bilateral anegrade vertebral arteries. CONCLUSIONS Right ICA stenosis 50-69%. Diffuse irregular plaque. Left ICA stenosis < 50%. Dr. Araceli Irwin DO (Electronically Signed) Final Date: 17 Sep 2020 14:03 S
== END 2020-09-17 10:30 | disposition home or self-care (01) ==
LOC: US 10:34
PROVIDERS: PCP Family Medicine; Visit Provider Thoracic Surgery (Cardiothoracic Vascular Surgery)
DX: I65.23 Occlusion and stenosis of bilateral carotid arteries (principal)
CPT/HCPCS: 93880

== ENCOUNTER 2021-06-20 08:53 | Outpatient (CLI) | payer MEDICARE, SELFPAY ==
--- NOTE | 2021-06-20 09:03 | USCV_ITS ---
Finn Hannon Age: 75 Gender: M : 1945 Exam Date: 06/20/2021 09:13 Ordering Phys: Pradip Schwarz MD (Andy) ([email or web address]) Technologist: Swapnil Ramirez [place]am Location[place] [facility] [place] Indication: LT SIDE ENDART Risk Factors: Previous Vascular Surgery: L CEA Right Brachial BP: / Left Brachial BP: / Right Left Velocity (cm/s) Spectral Plaque Velocity (cm/s) Spectral Plaque Syst/Diast Broadening Syst/Diast Broadening 66.20/ 14.30 Prox CCA 113.40/ 31.10 57.30/ 9.90 Mid CCA 101.00/ 26.40 77.20/ 15.40 Agustin Distal CCA 59.00 / 14.00 130.50/21.80 Agustin Prox ICA 60.80 / 17.90 105.65/22.55 Hetro Mid ICA 66.70 / 21.50 79.10/ 21.00 Distal ICA 64.40 / 23.80 155.50 ECA 75.30 1.75 ICA/CCA 0.59 Antegrade Vertebral Antegrade 32.00/ 10.00 cm/s 28.30/ 8.70 cm/s Bi Subclavian Bi 170.9 74.10 0 FINDINGS Comparison:. 09/17/20. Velocity is not as elevated in the right ICA as seen on the prior exam. Moderate plaque with shadowing in the bifurcation. Antegrade vertebral arteries. Prior left CEA. No recurrent stensosi. CONCLUSIONS Right ICA stenosis < 50%. Velocity not as significantly elevated as on the prior exam. Proximal right ICA partially obscured by plaque. Consider evaluation by CTA. Left ICA stenosis < 50%. Dr. Araceli Irwin DO (Electronically Signed) Final Date: 20 June 2021 10:48 S
== END 2021-06-20 08:54 | disposition home or self-care (01) ==
LOC: RAD 08:58
PROVIDERS: PCP Family Medicine; Visit Provider Thoracic Surgery (Cardiothoracic Vascular Surgery)
DX: I65.23 Occlusion and stenosis of bilateral carotid arteries (principal)
CPT/HCPCS: 93880

== ENCOUNTER → 2021-07-06 09:38 | Outpatient (BNVA) | payer MEDICARE, SELFPAY | PROVIDERS: PCP Family Medicine; Visit Provider Nurse Practitioner Family | DX: E78.5 Hyperlipidemia, unspecified (principal); I10 Essential (primary) hypertension; I25.10 Atherosclerotic heart disease of native coronary artery without angina pectoris; I65.29 Occlusion and stenosis of unspecified carotid artery | CPT/HCPCS: 93246; 99214 ==

== ENCOUNTER → 2021-07-15 09:17 | Outpatient (BNVA) | payer MEDICARE, SELFPAY | PROVIDERS: PCP Family Medicine; Visit Provider Thoracic Surgery (Cardiothoracic Vascular Surgery) | DX: I65.23 Occlusion and stenosis of bilateral carotid arteries (principal); Z98.890 Other specified postprocedural states | CPT/HCPCS: 99213 ==

== ENCOUNTER 2022-03-01 15:10 | Outpatient (CLI) | payer MEDICARE, SELFPAY ==
--- NOTE | 2022-03-01 15:15 | USCV_ITS ---
Finn Hannon Age: 76 Gender: M : 1945 Exam Date: 03/01/2022 15:37 Ordering Phys: Pradip Schwarz MD (Andy) ([email or web address] [place]) Technologist: CT Exam Location: [facility] [place] Indication: carotid stenosis Risk Factors: Previous Vascular Surgery: lt cea Right Brachial BP: / Left Brachial BP: / Right Left Velocity (cm/s) Spectral Plaque Velocity (cm/s) Spectral Plaque Syst/Diast Broadening Syst/Diast Broadening 83.20/ 19.80 Prox CCA 93.30 / 22.30 76.20/ 22.80 Mid CCA 84.80 / 22.90 75.30/ 17.50 Distal CCA 69.90 / 20.60 67.50/ 20.30 Prox ICA 46.20 / 19.50 111.30/39.90 Mid ICA 54.50 / 20.70 65.10/ 19.50 Distal ICA 46.20 / 14.20 109.00 ECA 80.20 1.34 ICA/CCA 0.58 Antegrade Vertebral Antegrade 52.35/ 15.40 cm/s 30.20/ 14.20 cm/s Bi Subclavian Bi 130.1 67.20 0 FINDINGS Comparison:. 06/20/21 No significant elevation of systolic or diastolic velocities. Diffuse, mild bilateral scattered calcified plaque and intimal thickening throughout the common carotid arteries and extending through the bifurcation. Antegrade vertebral arteries. CONCLUSIONS Bilateral ICA stenosis less than 50%. Mild bilateral carotid atherosclerosis. Dr. Araceli Irwin DO (Electronically Signed) Final Date: 01 March 2022 16:33 S
== END 2022-03-01 15:11 | disposition home or self-care (01) ==
PROVIDERS: PCP Family Medicine; Visit Provider Thoracic Surgery (Cardiothoracic Vascular Surgery)
DX: I65.23 Occlusion and stenosis of bilateral carotid arteries (principal)
CPT/HCPCS: 93880

== ENCOUNTER → 2022-03-07 13:24 | Outpatient (BNVA) | payer MEDICARE, SELFPAY | PROVIDERS: PCP Family Medicine; Visit Provider Thoracic Surgery (Cardiothoracic Vascular Surgery) | DX: I65.22 Occlusion and stenosis of left carotid artery (principal); Z98.890 Other specified postprocedural states | CPT/HCPCS: 99212 ==

== ENCOUNTER 2022-07-28 19:05 | Emergency (ER) | payer MEDICARE, SELFPAY ==
[2022-07-28 19:24] VITALS: BP 118/74; PULSE 104; RESP 18; TEMP 38; O2SAT 96; BMI 26.4
--- NOTE | 2022-07-28 19:28 | XRR_ITS ---
PROCEDURE INFORMATION: Exam: XR Chest Exam date and time: 07/28/2022 8:49 PM Age: 77 years old Clinical indication: Shortness of breath and other: Covid; Additional info: SOB, covid. TECHNIQUE: Imaging protocol: Radiologic exam of the chest. Views: 1 view. COMPARISON: CR XR chest 1V portable [id number] 12/12/2019 11:32 AM FINDINGS: Lungs: No consolidative pulmonary infiltrates are noted. Pleural spaces: No pleural effusion. No pneumothorax. Heart/Mediastinum: No cardiomegaly. Vasculature: The thoracic aorta is atherosclerotic. Bones/joints: Degenerative spine changes are noted. Degenerative change of the bilateral glenohumeral joints noted. XR/XR chest 1V portable [id number] IMPRESSION: 1. No radiographic evidence of pneumonia. (Note: Imaging may be negative in the early stages of COVID-19 pneumonia.) 2. There is no interval change from the prior examination.
[2022-07-28 19:32] VITALS: O2SAT 96
[2022-07-28 20:04] LABS: SARS Covid-2 Antigen positive (Negative)
[2022-07-28 23:00] VITALS: PULSE 91; RESP 18; O2SAT 96
--- NOTE | 2022-07-29 02:15 | W.ED.COVID ---
HPI - COVID General: Chief Complaint: COVID symptoms Stated Complaint: home covid test +, SOB, fever Time Seen by Provider: 07/28/22 22:18 Source: patient Mode of arrival: wheelchair Limitations: no limitations History of Present Illness: Patient presents to the emergency department today brought by family for evaluation and treatment of cough and exposure to COVID. Patient reports that his currently has COVID. Patient states that a couple of days ago he began having respiratory symptoms including cough. He now has body aches, low-grade fevers, nasal congestion, headache, and sore throat. Patient is still eating and drinking. He states the cough is the most annoying and kept him up most of the night. He notes that through the evening and night his cough does seem to worsen. It is currently nonproductive. Patient has no previous issues with his lungs including COPD or emphysema however, he does have a history of heart disease and high blood pressure. Patient states that he probably would not have come for evaluation except his family is in town visiting and wanted him evaluated. COVID 19 common symptoms: positive non-productive cough, throat pain and nasal congestion COVID Results: SARS-CoV-2 Antigen (Rapid) positive (Negative) 07/28/22 19:44 Review of Systems General: Reports: 10 or more systems reviewed and unremarkable except in HPI and below ENMT: Reports: throat pain and nasal congestion Resp: Reports: non-productive cough Musc: Reports: muscle cramps [facility] ED PFSH: Medical History Atherosclerotic heart disease of [place] coronary artery without angina pectoris Benign essential hypertension with target blood pressure below 140/90 BPH (benign prostatic hyperplasia) CAD (coronary artery disease) Carotid stenosis, bilateral Dyslipidemia GERD (gastroesophageal reflux disease) Hiatal hernia HTN (hypertension) Surgical History H/O arthroscopy of knee H/O arthroscopy of shoulder History of hip replacement, total History of left-sided carotid endarterectomy Hx of inguinal hernia surgery Family History Family/Other CAD (coronary artery disease) Stroke Mother Diabetes Denies family history of Clotting disorder Dementia Chronic kidney disease (CKD) Suicide Anesthesia complication Bleeding disorder Lung disease Cancer Social History Smoking and tobacco status: never smoked Alcohol intake: current Alcohol intake frequency: holidays/special occasions only Alcohol type: beer Physical Exam Const: COMMON NORMALS: no acute distress, patient oriented x3 and alert HENMT: OTHER: Mucous membranes are moist. Patient is audibly congested. Eye: COMMON NORMALS: Equal, round and reactive pupils present, EOMs intact bilaterally and conjunctivae normal CONJUNCTIVA: Yes conjunctivae normal PUPIL: Yes Equal, round and reactive pupils present Neck/C-Spine: COMMON NORMALS: no JVD Lymph: LYMPHATIC: no lymphadenopathy noted Resp: COMMON NORMALS: normal respiratory effort, No retractions and No use of accessory muscles OTHER: Patient has a dry cough Cardio: COMMON NORMALS: no JVD and regular rate RATE: regular rate : COMMON NORMALS: Yes no CVA tenderness BLADDER/KIDNEY EXAM: Yes no CVA tenderness Back/Pelvis: COMMON NORMALS: no CVA tenderness, thoracic and lumbar spine normal to inspection and thoraco-lumbar ROM normal Extremity: COMMON NORMALS: normal to inspection, full ROM and no pedal edema Neuro: COMMON NORMALS: patient oriented x3 SENSORIUM/ORIENTATION: Yes alert Skin: COMMON NORMALS: no rashes or lesions noted and turgor normal GENERAL SKIN EXAM: no rashes or lesions noted and turgor normal Course Vital Signs: Vital signs: Vital Signs Temperature 100.4 F H 07/28/22 19:24 Pulse Rate 91 07/28/22 23:00 Respiratory Rate 18 07/28/22 23:00 Blood Pressure 118/74 07/28/22 19:24 Pulse Oximetry 96 07/28/22 23:00 Oxygen Delivery Me thod 07/28/22 19:32 MDM - COVID Medical Decision Making Patient presented to the emergency department with upper respiratory symptoms and low-grade fever with known exposure to COVID-positive . Patient is COVID-positive here in the emergency department. Given the patient's history of cardiovascular disease, I do think he is a good candidate for Paxlovid. Spoke with Dr. Garcias who agreed the patient seems like a good candidate. I had a long conversation with the patient and his family regarding Paxlovid, its FDA emergency approved usage, potential side effects, and expected effects on disease. Patient will need to hold his Flomax during this time of taking Paxlovid. Patient felt confident in taking Paxlovid as he reports his is currently on this medication as well. However, patient is also given some Tessalon Perles for cough and discussed [id number] cough and cold medications for patient's specifically with high blood pressure. We did discuss the possibility of secondary bacterial infections including a COVID-pneumonia which he needs to be seen and reevaluated for. Explained that if he continues to have fevers, worsening cough, and sudden worsening shortness of breath or productive cough only to be seen and reevaluated again. Patient was requested to have a follow-up appoint with his primary care doctor at the middle or end of next week for a general recheck. Patient verbalized understanding and agreement to treatment plan. Differential Diagnosis Likely COVID 19, influenza, other viral infection, pneumonia and CHF exacerbation Lab Data Radiology Impressions Chest X-Ray 07/28/22 19:28 IMPRESSION: 1. No radiographic evidence of pneumonia. (Note: Imaging may be negative in the early stages of COVID-19 pneumonia.) 2. There is no interval change from the prior examination. Laboratory Results SARS-CoV-2 Ag (Rapid) positive (Negative) 07/28/22 19:44 SARS-CoV-2 Antigen (Rapid) positive (Negative) 07/28/22 19:44 Discharge Plan Discharge Patient Disposition: Home Clinical Impression: COVID-19, Cough Condition: Stable Prescriptions: New Paxlovid (EUA) 300 mg (150 mg x 2)-100 mg tablets,dose pack See Rx Instructions .ROUTE .COMPLEX Qty: 30 0RF Rx Instructions: orally per package directions benzonatate 100 mg capsule 100 mg PO TID Qty: 30 0RF No Action aspirin [Adult Aspirin Regimen] 81 mg tablet,delayed release (DR/EC) 81 mg PO DAILY lisinopril 20 mg tablet 20 mg PO DAILY Qty: 90 0RF Rx Instructions: Must be seen for further refills omeprazole 40 mg Capsule,Delayed Release(Dr/Ec) 40 mg PO DAILY Flomax 0.4 mg Capsule 0.4 mg PO DAILY Discharge Orders: Discharge ED (Routine); Ordered 07/28/22 Ordered By: Robyn Cheema Referrals: Marques Sterling MD [Primary Care Provider] - Discharge Diet: Usual diet Discharge Activity: Increase activity as tolerated Patient Instructions: Nirmatrelvir/Ritonavir (By mouth) (Paxlovid), COVID-19 (Coronavirus Disease 2019) (ED), COVID-19 and Chronic Health Conditions (ED), How to Recover from COVID-19 at Home (ED) Activity Restrictions/Additional Instructions: Your test for COVID today came back positive. As we discussed, you appear to be a good candidate for Paxlovid. This antiviral medicine for COVID is taken in an effort to help prevent any worsening of the COVID given your other chronic illness. You need to stop taking your Flomax while taking the Paxlovid. I have given you some medication to help with your cough but, you can still use Tylenol for fever and recommend cough and cold medications specifically for those with high blood pressure. I recommend a follow-up appointment with your primary care next week-even if this is just a virtual visit, to check in. However, if you have any acute worsening of your symptoms including any difficulty breathing, lightheadedness or concerns for dehydration you need to be seen and reevaluated here in the ER. Coding Level of Care Code ED Technical Writing Lead/Mgr for Elicia Agarwal
== END 2022-07-28 23:03 | disposition home or self-care (01) ==
PROVIDERS: Emergency Medicine; Emergency Provider Physician Assistant; PCP Family Medicine
DX: U07.1 COVID-19 (principal); I10 Essential (primary) hypertension; E78.5 Hyperlipidemia, unspecified; I25.10 Atherosclerotic heart disease of native coronary artery without angina pectoris; Z82.49 Family history of ischemic heart disease and other diseases of the circulatory system
CPT/HCPCS: 71045; 87426; 99284

== ENCOUNTER → 2022-09-07 11:43 | Outpatient (BNVA) | payer MEDICARE, SELFPAY | PROVIDERS: PCP Family Medicine; Visit Provider Internal Medicine Cardiovascular Disease | DX: I25.10 Atherosclerotic heart disease of native coronary artery without angina pectoris (principal); E78.5 Hyperlipidemia, unspecified; Z98.890 Other specified postprocedural states; I10 Essential (primary) hypertension; Z79.82 Long term (current) use of aspirin | CPT/HCPCS: 99213 ==

== ENCOUNTER 2023-02-26 10:36 | Outpatient (CLI) | payer MEDICARE, SELFPAY ==
--- NOTE | 2023-02-26 11:15 | USCV_ITS ---
Finn Hannon Age: 77 Gender: M : 1945 Exam Date: 02/26/2023 10:43 Ordering Phys: Pradip Schwarz MD (Andy) ([email or web address] [place]) Technologist: CT Exam Location: [facility] [place] Indication: stenosis Risk Factors: Previous Vascular Surgery: Right Brachial BP: / Left Brachial BP: / Right Left Velocity (cm/s) Spectral Plaque Velocity (cm/s) Spectral Plaque Syst/Diast Broadening Syst/Diast Broadening 112.40/24.30 Prox CCA 109.80/ 20.50 96.60/ 17.60 Mid CCA 96.50 / 26.60 62.20/ 14.30 Distal CCA 91.70 / 22.40 70.20/ 20.40 Prox ICA 47.60 / 17.80 131.20/49.20 Mid ICA 55.50 / 22.50 90.70/ 29.20 Distal ICA 54.80 / 20.50 137.10 ECA 100.60 1.17 ICA/CCA 0.51 Antegrade Vertebral Antegrade 85.30/ 28.10 cm/s 22.50/ 10.60 cm/s Tri Subclavian Bi 103.7 144.6 0 0 FINDINGS Comparison:. 03/01/22 Mild elevation of systolic and diastolic velocities. Antegrade vertebral arteries. Tortuous carotid arteries. Diffuse bilateral scattered calcified plaque and intimal thickening throughout the common carotid arteries and extending through the bifurcation. CONCLUSIONS Bilateral ICA stenosis less than 50%. Diffuse bilateral carotid atherosclerosis. Mild progression of plaque. Dr. Araceli Irwin DO (Electronically Signed) Final Date: 26 February 2023 15:37 S
== END 2023-02-26 10:37 | disposition home or self-care (01) ==
PROVIDERS: PCP Family Medicine; Visit Provider Thoracic Surgery (Cardiothoracic Vascular Surgery)
DX: I65.23 Occlusion and stenosis of bilateral carotid arteries (principal)
CPT/HCPCS: 93880

== ENCOUNTER → 2023-03-08 09:19 | Outpatient (BNVA) | payer MEDICARE, SELFPAY | PROVIDERS: PCP Family Medicine; Visit Provider Thoracic Surgery (Cardiothoracic Vascular Surgery) | DX: Z98.890 Other specified postprocedural states (principal) | CPT/HCPCS: 99213 ==

== ENCOUNTER → 2023-03-22 10:58 | Outpatient (BNVA) | payer MEDICARE, SELFPAY | PROVIDERS: PCP Family Medicine; Visit Provider Internal Medicine Cardiovascular Disease | DX: I25.10 Atherosclerotic heart disease of native coronary artery without angina pectoris (principal); Z98.890 Other specified postprocedural states; I10 Essential (primary) hypertension; E78.5 Hyperlipidemia, unspecified | CPT/HCPCS: 99213 ==

== ENCOUNTER → 2023-10-22 13:07 | Outpatient (BNVA) | payer MEDICARE, SELFPAY | PROVIDERS: PCP Family Medicine; Visit Provider Internal Medicine Cardiovascular Disease | DX: I10 Essential (primary) hypertension (principal); E78.5 Hyperlipidemia, unspecified; I25.10 Atherosclerotic heart disease of native coronary artery without angina pectoris; Z98.890 Other specified postprocedural states | CPT/HCPCS: 99213 ==

== ENCOUNTER → 2024-04-21 14:07 | Outpatient (BNVA) | payer MEDICARE, SELFPAY | PROVIDERS: PCP Family Medicine; Visit Provider Internal Medicine Cardiovascular Disease | DX: I25.10 Atherosclerotic heart disease of native coronary artery without angina pectoris (principal); I10 Essential (primary) hypertension; E78.5 Hyperlipidemia, unspecified; R55 Syncope and collapse; G62.9 Polyneuropathy, unspecified; G47.33 Obstructive sleep apnea (adult) (pediatric); Z98.890 Other specified postprocedural states | CPT/HCPCS: 99213 ==